=== PATIENT | male | born 1945 | race Caucasian/White ===

== ENCOUNTER 2018-05-04 10:01 | Emergency (ER) | payer MEDICARE, OTHER ==
[2018-05-04 11:09] LABS: SP GRAVITY,URINE MANUAL REFLEX 1.016 (1.002-1.035)
[2018-05-04 11:12] LABS: BASO # 0.1 10^3/uL (0.0-0.2); BASO % 0.6 % (0.0-1.0); EOS # 0.4 10^3/uL (0.0-0.50); EOS % 2.7 % (0.0-3.0); HEMATOCRIT 38.3 % (42.0-52.0); IMMATURE GRANULOCYTE % 0.3 % (0-3.0); LYMPH # 4.1 10^3/uL (1.5-4.5); LYMPH % 30.9 % (24.0-44.0); MEAN CORPUSCULAR HEMOGLOBIN 29.9 pg (27.0-33.0); MEAN CORPUSCULAR HGB CONC 33.9 g/dl (32.0-36.5); MONO # 0.8 10^3/uL (0.0-0.8); MONO % 6.3 % (0.0-5.0); NEUTROPHILS # 7.8 10^3/uL (1.8-7.7); NEUTROPHILS % 59.2 % (36.0-66.0); PLATELET COUNT, AUTOMATED 287 10^3/uL (150-450); RED BLOOD COUNT 4.35 10^6/uL (4.30-6.10); RED CELL DISTRIBUTION WIDTH 12.8 % (11.5-14.5); WHITE BLOOD COUNT 13.2 10^3/uL (4.0-10.0)
[2018-05-04 11:25] LABS: BILIRUBIN, URINE MANUAL OBSCURED (NEGATIVE); GLUCOSE, URINE (UA) MANUAL NEGATIVE (NEGATIVE); KETONE, URINE MANUAL OBSCURED mg/dL (NEGATIVE); PROTEIN, URINE MANUAL REFLEX OBSCURED mg/dL (NEGATIVE); UROBILINOGEN, URINE MANUAL OBSCURED mg/dl (NORMAL)
[2018-05-04 11:26] LABS: BLOOD URINE MANUAL RFX POSITIVE (NEGATIVE); MICROSCOPIC INDICATED? RFX YES (NO); NITRITE, URINE MANUAL RFX OBSCURED (NEGATIVE)
[2018-05-04 11:31] LABS: ANION GAP 8 MEQ/L (8-16); BLOOD UREA NITROGEN 14 MG/DL (7-18); CALCIUM LEVEL 8.5 MG/DL (8.8-10.2); CARBON DIOXIDE LEVEL 24 MEQ/L (21-32); CHLORIDE LEVEL 111 MEQ/L (98-107); GLOMERULAR FILTRATION RATE > 60.0 (>42); GLUCOSE, FASTING 126 MG/DL (70-100); POTASSIUM SERUM 3.8 MEQ/L (3.5-5.1); SODIUM LEVEL 143 MEQ/L (136-145)
[2018-05-04 11:36] LABS: BACTERIA, URINE SMALL AMOUNT; HYALINE CAST, URINE NONE SEEN /lpf (0-1); RBC, URINE TNTC /hpf (0-3); SQUAMOUS EPITHELIAL CELL URINE NONE SEEN /hpf (SMALL AMT)
[2018-05-04 11:37] LABS: MICROSCOPIC EXAM PERFORMED; RENAL EPITHELIAL CELLS, URINE SMALL AMOUNT /hpf
[2018-05-04] MEDS: CEPHALEXIN 500 MG CAP PO (13:25)
== END 2018-05-04 13:25 | disposition home or self-care (01) ==
LOC: M ED 10:01
DX: N30.91 Cystitis, unspecified with hematuria (principal); I10 Essential (primary) hypertension; E78.9 Disorder of lipoprotein metabolism, unspecified; Z79.899 Other long term (current) drug therapy; F17.210 Nicotine dependence, cigarettes, uncomplicated
CPT/HCPCS: 80048

== ENCOUNTER 2018-05-06 17:17 | Day surgery (SDC) | payer MEDICARE ==
[2018-05-06 19:29] LABS: BASO # 0.1 10^3/uL (0.0-0.2); BASO % 0.6 % (0.0-1.0); EOS # 0.6 10^3/uL (0.0-0.50); EOS % 4.8 % (0.0-3.0); HEMATOCRIT 35.7 % (42.0-52.0); IMMATURE GRANULOCYTE % 0.3 % (0-3.0); LYMPH % 33.6 % (24.0-44.0); MEAN CORPUSCULAR HEMOGLOBIN 29.9 pg (27.0-33.0); MEAN CORPUSCULAR HGB CONC 33.6 g/dl (32.0-36.5); MONO # 0.8 10^3/uL (0.0-0.8); MONO % 6.8 % (0.0-5.0); NEUTROPHILS # 6.3 10^3/uL (1.8-7.7); NEUTROPHILS % 53.9 % (36.0-66.0); PLATELET COUNT, AUTOMATED 270 10^3/uL (150-450); RED BLOOD COUNT 4.01 10^6/uL (4.30-6.10); RED CELL DISTRIBUTION WIDTH 13.2 % (11.5-14.5); WHITE BLOOD COUNT 11.8 10^3/uL (4.0-10.0)
[2018-05-06 19:40] LABS: INR 0.98; PROTHROMBIN TIME 13.1 SECONDS (12.1-14.4)
[2018-05-06 19:41] LABS: PARTIAL THROMBOPLASTIN TIME 25.9 SECONDS (25.4-37.6)
[2018-05-06] MEDS: LevoFLOXacin(LEVAQUIN)500 MG/100 ML BAG (J1956) As Ordered ×2 (22:07)
[2018-05-06] MEDS ORDERED: MIDAZOLAM INJ 2 MG/2 ML VIAL (J2250) As Ordered ×2 (22:13)
[2018-05-06] MEDS ORDERED: fentaNYL 100 MCG/2 ML INJECTION (J3010) As Ordered ×4 (22:13→22:33)
[2018-05-06] MEDS ORDERED: PROPOFOL 200 MG/20 ML VIAL As Ordered ×4 (22:13→22:29)
[2018-05-06] MEDS ORDERED: LIDOCAINE 2% INJ 100 MG/5 ML SDV (FOR ANES.) As Ordered ×2 (22:13)
[2018-05-06] MEDS ORDERED: ONDANSETRON 4MG/2ML VIAL (J2405) As Ordered ×2 (22:14)
[2018-05-06] MEDS ORDERED: METOCLOPRAMIDE INJ 10MG/2ML VIAL (J2765) As Ordered ×2 (22:14)
[2018-05-06] MEDS ORDERED: dexameTHASONE 4 MG/ML 1ML VIAL (J1100) As Ordered ×4 (22:14)
[2018-05-06] MEDS ORDERED: ONDANSETRON 4MG/2ML VIAL (J2405) IV ×4 (23:30)
[2018-05-06] MEDS ORDERED: PERCOCET 5MG/325MG TAB PO ×2 (23:30)
[2018-05-06] MEDS ORDERED: fentaNYL 100 MCG/2 ML INJECTION (J3010) IV ×2 (23:30)
[2018-05-06] MEDS: LR 1,000 ML IV ×2 (23:30)
[2018-05-06] MEDS ORDERED: oxyCODONE 5MG TAB PO ×2 (23:30)
[2018-05-07] MEDS: MORPHINE 4 MG/ML 1ML VIAL/SYRINGE (J2270) IV ×4 (01:43→05:06)
[2018-05-07] MEDS: KCL 20MEQ IN D5/0.45NS 1000ML 1,000 ML IV ×2 (01:43→09:47)
[2018-05-07] MEDS: ACETAMINOPHEN 650MG ER TAB (TYLENOL ARTHRITIS) PO ×4 (05:05→14:05)
[2018-05-07] MEDS: LevoFLOXacin 500 MG TABLET PO ×2 (05:05)
[2018-05-07 07:01] LABS: ANION GAP 7 MEQ/L (8-16); BLOOD UREA NITROGEN 13 MG/DL (7-18); CALCIUM LEVEL 8.3 MG/DL (8.8-10.2); CARBON DIOXIDE LEVEL 26 MEQ/L (21-32); CHLORIDE LEVEL 110 MEQ/L (98-107); CREATININE FOR GFR 1.09 MG/DL (0.70-1.30); GLOMERULAR FILTRATION RATE > 60.0 (>42); GLUCOSE, FASTING 170 MG/DL (70-100); POTASSIUM SERUM 4.4 MEQ/L (3.5-5.1); SODIUM LEVEL 143 MEQ/L (136-145)
[2018-05-07 07:02] LABS: HEMATOCRIT 33.8 % (42.0-52.0); HEMOGLOBIN 11.3 g/dl (13.5-17.5); MEAN CORPUSCULAR HEMOGLOBIN 29.7 pg (27.0-33.0); MEAN CORPUSCULAR HGB CONC 33.4 g/dl (32.0-36.5); MEAN CORPUSCULAR VOLUME 88.7 fl (80.0-96.0); PLATELET COUNT, AUTOMATED 256 10^3/uL (150-450); RED BLOOD COUNT 3.81 10^6/uL (4.30-6.10); RED CELL DISTRIBUTION WIDTH 13.1 % (11.5-14.5); WHITE BLOOD COUNT 9.6 10^3/uL (4.0-10.0)
[2018-05-07] MEDS: PANTOPRAZOLE 40MG INJ (PROTONIX) (C9113) IV ×2 (09:47)
[2018-05-07] MEDS: SIMVASTATIN 20 MG TAB PO ×2 (09:50)
[2018-05-07] MEDS: ATENOLOL 50 MG TAB PO ×2 (09:50)
[2018-05-07] MEDS: LISINOPRIL 20 MG TAB PO ×2 (09:51)
== END 2018-05-07 17:40 | disposition home or self-care (01) ==
LOC: M MS5PR 05-07 → M ED 17:17 → M SDC 05-07 17:40
DX: C67.2 Malignant neoplasm of lateral wall of bladder (principal); R31.0 Gross hematuria; R33.9 Retention of urine, unspecified; I10 Essential (primary) hypertension; Z79.899 Other long term (current) drug therapy; E78.4 Other hyperlipidemia; I25.2 Old myocardial infarction; F17.210 Nicotine dependence, cigarettes, uncomplicated
CPT/HCPCS: 52235

== ENCOUNTER → 2018-05-06 | Outpatient (CLI) | payer MEDICARE ==
[~2018-05-06] MED LIST: ISOVUE-370 76% 100ML VIAL (Q9967) As Ordered
== END ==
LOC: M RAD 08:44
DX: R31.0 Gross hematuria (principal)
CPT/HCPCS: Q9967

== ENCOUNTER → 2018-06-04 | Outpatient (REF) | payer MEDICARE ==
[2018-06-04 13:12] LABS: APPEARANCE, URINE CLEAR (CLEAR); BACTERIA, URINE AUTO NEGATIVE (NEGATIVE); BILIRUBIN, URINE AUTO NEGATIVE (NEGATIVE); BLOOD, URINE BLOOD NEGATIVE (NEGATIVE); COLOR, URINE YELLOW (YELLOW); GLUCOSE, URINE (UA) AUTO NEGATIVE (NEGATIVE); KETONE, URINE AUTO NEGATIVE (NEGATIVE); LEUKOCYTE ESTERASE, URINE AUTO TRACE (NEGATIVE); MUCUS, URINE SMALL (NEGATIVE); NITRITE, URINE AUTO NEGATIVE (NEGATIVE); PROTEIN, URINE AUTO NEGATIVE (NEGATIVE); RBC, URINE AUTO 5 /HPF (0-3); SPECIFIC GRAVITY URINE AUTO 1.021 (1.002-1.035); SQUAMOUS EPITHELIAL CELL UR AU 0 /HPF (0-6); WBC, URINE AUTO 15 /HPF (0-3)
== END ==
LOC: M SMT 12:59
DX: Z79.899 Other long term (current) drug therapy (principal); Z85.51 Personal history of malignant neoplasm of bladder
CPT/HCPCS: 81001

== ENCOUNTER → 2019-06-15 | Outpatient (REF) | payer MEDICARE ==
[~2019-06-15] MED LIST changes: +ASPI1TAB15 PO; +ATEN50TA2 PO; -ISOVUE-370 76% 100ML VIAL (Q9967) As Ordered; +KEFL500C17 PO; +LISI-538 PO; +SIMV20TA2 PO
== END ==
LOC: M SMT 12:33
PROVIDERS: ATTEND Urology
DX: C67.9 Malignant neoplasm of bladder, unspecified (principal)

== ENCOUNTER → 2019-07-17 | Outpatient (REF) | payer MEDICARE ==
[2019-07-17 13:28] LABS: BLOOD UREA NITROGEN 13 MG/DL (7-18); CALCIUM LEVEL 9.1 MG/DL (8.8-10.2); CARBON DIOXIDE LEVEL 28 MEQ/L (21-32); CHLORIDE LEVEL 107 MEQ/L (98-107); GLOMERULAR FILTRATION RATE > 60.0 (>42); GLUCOSE, FASTING 110 MG/DL (70-100); POTASSIUM SERUM 4.8 MEQ/L (3.5-5.1); SODIUM LEVEL 141 MEQ/L (136-145)
[2019-07-17 13:40] LABS: CHOLESTEROL RISK RATIO 3.5 (<5); THYROID STIMULATING HORMONE 1.81 uIU/ML (0.358-3.740)
[2019-07-17 13:50] LABS: HEMOGLOBIN A1c 5.8 %
[2019-07-17 14:42] LABS: MALB URINE SIEMENS 26.4 MG/L
== END ==
LOC: M SFHCPLAZ 09:42
PROVIDERS: ATTEND Family Medicine
DX: R73.03 Prediabetes (principal); E78.2 Mixed hyperlipidemia; I10 Essential (primary) hypertension
CPT/HCPCS: 36415; 80048; 80061; 82043; 83036; 84443; G0463

== ENCOUNTER → 2019-08-11 | Outpatient (REF) | payer MEDICARE ==
[~2019-08-11] MED LIST changes: +ASPI81TA85 PO
[2019-08-11 13:43] LABS: BASO # 0.1 10^3/uL (0.0-0.2); EOS # 0.6 10^3/uL (0.0-0.5); EOS % 5.4 % (0.0-3.0); HEMATOCRIT 37.8 % (42.0-52.0); LYMPH % 29.5 % (24.0-44.0); MEAN CORPUSCULAR HEMOGLOBIN 30.7 pg (27.0-33.0); MEAN CORPUSCULAR HGB CONC 34.4 g/dl (32.0-36.5); MEAN CORPUSCULAR VOLUME 89.2 fl (80.0-96.0); MONO # 0.7 10^3/uL (0.0-0.8); MONO % 6.4 % (0.0-5.0); NEUTROPHILS # 5.8 10^3/uL (1.5-8.5); NEUTROPHILS % 57.6 % (36.0-66.0); PLATELET COUNT, AUTOMATED 295 10^3/uL (150-450); RED BLOOD COUNT 4.24 10^6/uL (4.30-6.10); WHITE BLOOD COUNT 10.1 10^3/uL (4.0-10.0)
[2019-08-11 13:58] LABS: INR 1.02; PROTHROMBIN TIME 13.1 SECONDS (11.8-14.0)
[2019-08-11 13:59] LABS: PARTIAL THROMBOPLASTIN TIME 27.9 SECONDS (25.0-38.4)
[2019-08-11 14:07] LABS: BLOOD UREA NITROGEN 14 MG/DL (7-18); CARBON DIOXIDE LEVEL 29 MEQ/L (21-32); CHLORIDE LEVEL 106 MEQ/L (98-107); CREATININE FOR GFR 0.94 MG/DL (0.70-1.30); GLOMERULAR FILTRATION RATE > 60.0 (>42); GLUCOSE, FASTING 102 MG/DL (70-100); POTASSIUM SERUM 4.2 MEQ/L (3.5-5.1); SODIUM LEVEL 140 MEQ/L (136-145)
[2019-08-18 00:06] LABS: A1A FOR PHENOTYPE 150 mg/dL (90-200)
== END ==
LOC: M LAB REF 13:34
PROVIDERS: ATTEND Internal Medicine Pulmonary Disease
DX: J44.9 Chronic obstructive pulmonary disease, unspecified (principal); Z79.01 Long term (current) use of anticoagulants

== ENCOUNTER → 2019-08-13 | Outpatient (CLI) | payer MEDICARE ==
--- NOTE | 2019-08-14 18:42 | REP ---
CT CHEST WITHOUT IV CONTRAST: COMPARISON: CT chest from [facility] 07/19/2019. Once again in the right upper lobe, there is a spiculated mass. This is unchanged. It measures 2.0 x 1.8 cm. There are surrounding spiculations extending into the lung parenchyma. No other suspicious mass is seen bilaterally. There is a calcified granuloma in the left lower lobe just above the diaphragm. There are mild scattered fibrotic changes. There is no evidence of significant mediastinal, hilar or chest wall lymphadenopathy. There are atherosclerotic calcifications of the thoracic aorta without aneurysm. The heart is not enlarged. There is no pleural or pericardial effusion. There are degenerative changes of the spine. Calcified granulomas are seen in the spleen. Calcified left hilar lymph nodes are present. There are stable low density nodular thickening of the left adrenal gland, probably representing a small underlying adenoma. IMPRESSION: No change spiculated mass right upper lobe. No other suspicious lung mass. No suspicious adenopathy or adrenal mass. Electronically Signed by Massimo Robertson MD 08/15/2019 11:21 A
== END ==
LOC: M RAD 07:06
PROVIDERS: ATTEND Internal Medicine Pulmonary Disease
DX: R91.1 Solitary pulmonary nodule (principal)

== ENCOUNTER 2019-08-20 06:40 | Day surgery (SDC) | payer MEDICARE ==
[~2019-08-20] VITALS: Ht 180.3 cm; Wt 86.4 kg
[~2019-08-20 06:40] MED LIST changes: +LR 1,000 ML IV ONE
[2019-08-20] MEDS ORDERED: CETACAINE SPRAY 5GM As Ordered ONE (07:50)
[2019-08-20] MEDS ORDERED: EPINEPHrine 1MG/10ML SYRINGE 1.5IN As Ordered ONE (07:51)
[2019-08-20] MEDS ORDERED: LIDOCAINE VISCOUS 2% SOLN 15ML UDC As Ordered ONE (07:51)
[2019-08-20] MEDS ORDERED: LIDOCAINE 1% SDV INJ 30 ML VIAL As Ordered ONE (07:51)
[2019-08-20] MEDS ORDERED: THROMBIN SOLN 5,000 UNITS VIAL As Ordered ONE (07:52)
[2019-08-20] MEDS ORDERED: ROCURONIUM BROMIDE 50 MG/5 ML VIAL As Ordered ONE (08:07)
[2019-08-20] MEDS ORDERED: PROPOFOL 200 MG/20 ML VIAL As Ordered ONE (08:07)
[2019-08-20] MEDS ORDERED: fentaNYL 100 MCG/2 ML INJECTION (J3010) As Ordered ONE (08:07)
[2019-08-20] MEDS ORDERED: LIDOCAINE 2% INJ 100 MG/5 ML SDV (FOR ANES.) As Ordered ONE (08:07)
[2019-08-20] MEDS ORDERED: MIDAZOLAM INJ 2 MG/2 ML VIAL (J2250) As Ordered ONE (08:08)
[2019-08-20] MEDS ORDERED: dexameTHASONE 4 MG/ML 1ML VIAL (J1100) As Ordered ONE (09:00)
[2019-08-20] MEDS ORDERED: ONDANSETRON 4MG/2ML VIAL (J2405) As Ordered ONE (09:00)
[2019-08-20] MEDS ORDERED: KETOROLAC 60 MG/2 ML VIAL (J1885) As Ordered ONE (09:00)
[2019-08-20] MEDS ORDERED: SUGAMMADEX SODIUM 500 MG/5 ML VIAL (BRIDION) As Ordered ONE (09:10)
[2019-08-20] MEDS ORDERED: KETOROLAC 30 MG/ML VIAL (J1885) IV PRN (10:00)
[2019-08-20] MEDS ORDERED: LR 1,000 ML IV SCH (10:00)
[2019-08-20] MEDS ORDERED: fentaNYL 100 MCG/2 ML INJECTION (J3010) IV PRN (10:00)
[2019-08-20] MEDS ORDERED: ONDANSETRON 4MG/2ML VIAL (J2405) IV PRN (10:00)
--- NOTE | 2019-08-20 10:07 | REP ---
Clinical: Status post bronchoscopy . Comparison: 06/28/2014 . Findings: The mediastinum and cardiac silhouette are stable and cardiomegaly is again appreciated. The lung arrieta demonstrate stable chronic changes without acute consolidation, effusion, or pneumothorax. Skeletal structures are intact. Impression: No acute cardiopulmonary process appreciated. Electronically Signed by Matthew Whiteside MD 08/20/2019 09:59 A
--- NOTE | 2019-08-20 11:43 | ROOR ---
Patient Name: Russel Fairbanks Procedure Date: 08/20/2019 8:08 AM Date of : 1945 Admit Type: Outpatient Age: 74 Note Status: Finalized Attending MD: Lucy Germain MD Procedure: Bronchoscopy Indications: Right upper lobe mass Providers: Lucy Germain MD (Doctor) Referring MD: 1. No Referring Physician 1. No Referring Physician, Admin. (Referring MD) Requesting Physician: Medicines: General Anesthesia, Cetacaine topical Complications: No immediate complications. Estimated blood loss: Minimal Procedure: Pre-Anesthesia Assessment: - Prior to the procedure, a History and Physical was performed, and patient medications and allergies were reviewed. The patient's tolerance of previous anesthesia was also reviewed. The risks and benefits of the procedure and the sedation options and risks were discussed with the patient. All questions were answered, and informed consent was obtained. Prior Anticoagulants: The patient has taken aspirin, last dose was day of procedure. ASA Grade Assessment: III - A patient with severe systemic disease. After reviewing the risks and benefits, the patient was deemed in satisfactory condition to undergo the procedure. The Bronchoscope was introduced through the mouth, via the endotracheal tube (the patient was intubated for the procedure) and advanced to the tracheobronchial tree of both lungs. The procedure was accomplished without difficulty. The patient tolerated the procedure well. Findings: The endotracheal tube is in good position. The trachea is of normal caliber. The philip is sharp. The tracheobronchial tree was examined to at least the first subsegmental level. Bronchial mucosa was normal with some webbing; there are no endobronchial lesions, and no secretions. There was anatomic variant in right upper lobe segmental bronchi. Electromagnetic navigation bronchoscopy utilizing the [employer] system with iLogic upgrade was performed. The CT scan was used for planning purposes. A virtual bronchoscopic image was generated using the planning software and the philip, left main bronchus philip, left lower lobe basilar segment, right upper lobe, right middle lobe and right lower lobe basilar segment registration points were marked on the virtual image. The target in the apical segment of the right upper lobe was marked. A nodule approx 2 cm in size was found and a pathway was created. After a complete airway exam, the locatable guide/extended working channel was inserted and an automatic registration was performed by advancing the scope through the philip, left main bronchus philip, left lower lobe basilar segment, right upper lobe, right middle lobe and right lower lobe basilar segment. The navigation phase was then begun to locate the target lesion(s). Positioning off-center (in relation to the lesion) was confirmed using the Olympus radial probe US catheter. The locatable guide was removed from the extended working channel. Fluoroscopy guided transbronchial brushings of a nodule were obtained in the apical segment of the right upper lobe with a needle brush and sent for routine cytology. Transbronchial brushing technique was selected because the sampling site was not accessible using standard endoscopic (bronchoscopic) techniques. Transbronchial needle aspirations of a nodule were performed in the apical segment of the right upper lobe using a Castellanos needle and GenCut needle and sent for routine cytology. The procedure was guided by fluoroscopy. Transbronchial needle aspiration technique was selected because the sampling site was not accessible using standard endoscopic (bronchoscopic) techniques. Transbronchial biopsies of a nodule were performed in the apical segment of the right upper lobe using forceps and sent for histopathology examination. The procedure was guided by fluoroscopy. Transbronchial biopsy technique was selected because the sampling site was not visible endoscopically. The sampling device penetrated the full thickness of the bronchial wall to obtain the biopsy of lung tissue. An endobronchial ultrasound endoscope was utilized in order to assist with fine needle aspiration in the subcarinal area and in the right hilum. Bronchoalveolar lavage was performed in the RUL apical segment (B1) of the lung and sent for routine cytology. The return was cloudy. Impression: - Right upper lobe mass - The airway examination was normal. - Electromagnetic navigation bronchoscopy was performed. - Transbronchial brushings were obtained. - A transbronchial needle aspiration was performed. - Transbronchial lung biopsies were performed. - Endobronchial ultrasound was performed. - Bronchoalveolar lavage was performed. Recommendation: - Follow up with bronchoscopist as previously scheduled. Attending Participation: I personally performed the entire procedure. Lucy Germain MD 08/20/2019 11:43:21 AM Number of Addenda: 0 Note Initiated On: 08/20/2019 8:08 AM
[2019-08-20 11:45] VITALS: BP 154/70
== END 2019-08-20 11:53 | disposition home or self-care (01) ==
LOC: M SDC 06:40
PROVIDERS: ATTEND Internal Medicine Pulmonary Disease
DX: C34.11 Malignant neoplasm of upper lobe, right bronchus or lung (principal); I10 Essential (primary) hypertension; I25.10 Atherosclerotic heart disease of native coronary artery without angina pectoris; E78.49 Other hyperlipidemia; R73.03 Prediabetes; Z85.51 Personal history of malignant neoplasm of bladder; Z86.73 Personal history of transient ischemic attack (TIA), and cerebral infarction without residual deficits; F17.218 Nicotine dependence, cigarettes, with other nicotine-induced disorders; Z79.82 Long term (current) use of aspirin; Z79.899 Other long term (current) drug therapy
CPT/HCPCS: 31623; 31624; 31627; 31629; 31652; 71045; 76000; 88104; 88108; 88173; 88305; 88313; 88341; 88342; J1100; J1885; J2250; J2405; J3010

== ENCOUNTER → 2019-09-15 | Outpatient (CLI) | payer MEDICARE ==
[~2019-09-15] MED LIST changes: -LR 1,000 ML IV ONE; -SIMV20TA2 PO; +SIMV20TA22 PO
--- NOTE | 2019-09-15 16:06 | REP ---
PET/CT: History: Staging malignant neoplasm upper lobe right lung. Adenocarcinoma. Comparisons: Comparison chest CT study July 21 and August 13, 2019. TECHNIQUE: 70 minutes following the intravenous injection of a 9.83 mCi dose of F-18 FDG, three-dimensional PET scintigraphy is acquired from the skull base to the proximal thighs. Triplanar noncontrast CT scanning is acquired through the same anatomic range for attenuation correction, and image registration with scan parameters optimized to minimize radiation exposure to the patient. PET scintigraphy and CT datasets were fused and displayed on a workstation with multiplanar and projection display capability. PET/CT Findings: Head and neck soft tissues are unremarkable. The known spiculated 2 cm right upper lobe lesion is hypermetabolic, maximum standard uptake value is 4.68. No other abnormal hypermetabolic uptake is seen within the chest. No hilar or mediastinal hypermetabolic uptake is seen. No abnormal abdominal or pelvic hypermetabolic uptake is seen. No abnormal adrenal uptake is seen. Impression: The right upper lobe malignant neoplasm is hypermetabolic. No other abnormal hypermetabolic uptake is seen. Electronically Signed by Shaquille Luevano MD 09/15/2019 04:10 P
== END ==
LOC: M PLARAD 11:29
PROVIDERS: ATTEND Internal Medicine Pulmonary Disease
DX: C34.11 Malignant neoplasm of upper lobe, right bronchus or lung (principal)
CPT/HCPCS: 78815; A9552

== ENCOUNTER → 2019-11-04 | Outpatient (CLI) | payer MEDICARE ==
[~2019-11-04] MED LIST changes: +ASPI-255 PO; +ATOR80TA59 PO; +STIO1AER PO
[2019-11-04 10:12] LABS: BASO # 0.1 10^3/uL (0.0-0.2); EOS # 0.9 10^3/uL (0.0-0.5); HEMATOCRIT 37.7 % (42.0-52.0); HEMOGLOBIN 12.6 g/dl (13.5-17.5); LYMPH # 3.7 10^3/uL (1.5-5.0); LYMPH % 33.4 % (24.0-44.0); MEAN CORPUSCULAR HEMOGLOBIN 30.4 pg (27.0-33.0); MEAN CORPUSCULAR HGB CONC 33.4 g/dl (32.0-36.5); MEAN CORPUSCULAR VOLUME 90.8 fl (80.0-96.0); MONO # 0.8 10^3/uL (0.0-0.8); MONO % 7.4 % (0.0-5.0); NEUTROPHILS # 5.5 10^3/uL (1.5-8.5); NEUTROPHILS % 49.9 % (36.0-66.0); PLATELET COUNT, AUTOMATED 302 10^3/uL (150-450); RED BLOOD COUNT 4.15 10^6/uL (4.30-6.10); WHITE BLOOD COUNT 11.1 10^3/uL (4.0-10.0)
[2019-11-04 10:22] LABS: INR 0.99; PROTHROMBIN TIME 12.8 SECONDS (11.8-14.0)
[2019-11-04 10:23] LABS: PARTIAL THROMBOPLASTIN TIME 25.6 SECONDS (25.0-38.4)
[2019-11-04 10:38] LABS: ALT/SGPT 33 U/L (12-78); BLOOD UREA NITROGEN 25 MG/DL (7-18); CALCIUM LEVEL 9.2 MG/DL (8.8-10.2); CARBON DIOXIDE LEVEL 26 MEQ/L (21-32); CHLORIDE LEVEL 105 MEQ/L (98-107); CREATININE FOR GFR 1.08 MG/DL (0.70-1.30); GLOMERULAR FILTRATION RATE > 60.0 (>42); GLUCOSE, FASTING 116 MG/DL (70-100); POTASSIUM SERUM 4.6 MEQ/L (3.5-5.1); SODIUM LEVEL 139 MEQ/L (136-145); TOTAL PROTEIN 7.6 GM/DL (6.4-8.2)
== END ==
LOC: M PLALAB 09:08
PROVIDERS: ATTEND Family Medicine
DX: I25.10 Atherosclerotic heart disease of native coronary artery without angina pectoris (principal)

== ENCOUNTER 2019-11-06 08:56 | Day surgery (SDC) | payer MEDICARE ==
[~2019-11-06] VITALS: Ht 180.3 cm; Wt 92.9 kg
[~2019-11-06 08:56] MED LIST changes: +NS 1,000 ML IV ONE
[2019-11-06] MEDS ORDERED: atenoloL 25 MG TAB As Ordered ONE (10:14)
[2019-11-06] MEDS ORDERED: atenoloL 25 MG TAB PO ONE (10:30)
[2019-11-06] MEDS ORDERED: propofoL 200 MG/20 ML VIAL As Ordered ONE ×2 (10:38→10:59)
[2019-11-06] MEDS ORDERED: LIDOCAINE 2% INJ 100 MG/5 ML SDV (FOR ANES.) As Ordered ONE (10:39)
--- NOTE | 2019-11-06 10:51 | ROOR ---
Patient Name: Russel Fairbanks Procedure Date: 11/06/2019 10:36 AM Date of : 1945 Age: 74 Room: [facility] Gender: Male Note Status: Finalized Procedure: Upper GI endoscopy Indications: Iron deficiency anemia Providers: Benjamin HURLEY MD Referring MD: Dayanna Ralph MD Requesting Provider: Medicines: Monitored Anesthesia Care Complications: No immediate complications. Procedure: Pre-Anesthesia Assessment: - The heart rate, respiratory rate, oxygen saturations, blood pressure, adequacy of pulmonary ventilation, and response to care were monitored throughout the procedure. The Endoscope was introduced through the mouth, and advanced to the second part of duodenum. The upper GI endoscopy was accomplished without difficulty. The patient tolerated the procedure well. Findings: The esophagus was normal. The stomach was normal. The examined duodenum was normal. Impression: - Normal esophagus. - Normal stomach. - Normal examined duodenum. - No specimens collected. Recommendation: - Continue present medications. - Observe patient's clinical course. Benjamin Hurley MD Benjamin HURLEY MD 11/06/2019 10:51:16 AM Electronically signed by Benjamin HURLEY MD Number of Addenda: 0 Note Initiated On: 11/06/2019 10:36 AM Estimated Blood Loss: Estimated blood loss: none.
--- NOTE | 2019-11-06 11:02 | ROOR ---
Patient Name: Russel Fairbanks Procedure Date: 11/06/2019 10:37 AM Date of : 1945 Age: 74 Room: [facility] Gender: Male Note Status: Finalized Procedure: Colonoscopy Indications: Positive fecal immunochemical test Providers: Benjamin HURLEY MD Referring MD: Dayanna Ralph MD Requesting Provider: Medicines: Monitored Anesthesia Care Complications: No immediate complications. Procedure: Pre-Anesthesia Assessment: - The heart rate, respiratory rate, oxygen saturations, blood pressure, adequacy of pulmonary ventilation, and response to care were monitored throughout the procedure. The Colonoscope was introduced through the anus and advanced to the cecum, identified by appendiceal orifice and ileocecal valve. The colonoscopy was somewhat difficult due to inadequate bowel prep. The patient tolerated the procedure well. The quality of the bowel preparation was poor. Findings: The perianal and digital rectal examinations were normal. (Colon Prep was POOR, Inadequate Visualisation) The colon is grossly normal without large tumors or obstructing lesions. Unable to perform adequate detail examination. Small lesions may have been missed. Impression: - (Colon Prep was POOR, Inadequate Visualisation) - The colon is grossly normal without large tumors or obstructing lesions. Unable to perform adequate detail examination. Small lesions may have been missed. - No specimens collected. Recommendation: - Repeat colonoscopy at the next available appointment because the bowel preparation was poor. - My office will call you within the next few days to reschedule a colonoscopy with alternate colon preparation. Benjamin Hurley MD Benjamin HURLEY MD 11/06/2019 11:02:06 AM Electronically signed by Benjamin HURLEY MD Number of Addenda: 0 Note Initiated On: 11/06/2019 10:37 AM Estimated Blood Loss: Estimated blood loss: none.
[2019-11-06 11:30] VITALS: BP 154/76
== END 2019-11-06 11:34 | disposition home or self-care (01) ==
LOC: M OPP 08:56
PROVIDERS: ATTEND Internal Medicine Gastroenterology
DX: R19.5 Other fecal abnormalities (principal); D50.9 Iron deficiency anemia, unspecified; Z79.82 Long term (current) use of aspirin; Z79.899 Other long term (current) drug therapy; Z87.891 Personal history of nicotine dependence

== ENCOUNTER → 2019-12-21 | Outpatient (CLI) | payer MEDICARE ==
[~2019-12-21] MED LIST changes: -NS 1,000 ML IV ONE
--- NOTE | 2019-12-21 12:04 | REPVR ---
PROCEDURE INFORMATION: Exam: CT Chest Without Contrast Exam date and time: 12/21/2019 10:37 AM Age: 74 years old Clinical indication: Condition or disease; Lung condition and disease; Cancer of the lung; Right; Lobe, upper; Additional info: Malignant neoplasm of right upper lobe of lung TECHNIQUE: Imaging protocol: Computed tomography of the chest without contrast. Coronal and sagittal reformats were created and reviewed. 3D rendering: MIP and/or 3D reconstructed images were created by the technologist. Radiation optimization: All CT scans at this facility use at least one of these dose optimization techniques: automated exposure control; mA and/or kV adjustment per patient size (includes targeted exams where dose is matched to clinical indication); or iterative reconstruction. COMPARISON: CT Chest without contrast 08/13/2019 7:20 AM FINDINGS: Thyroid: Unremarkable as visualized. Lungs: The trachea is unremarkable. Diffuse bilateral bronchial wall thickening. Mild bilateral upper lung predominant paraseptal and centrilobular emphysema. Unchanged mild linear scarring of the left upper lobe and lingula. Unchanged left lower lobe calcified pulmonary nodule consistent with a benign remote granuloma. Right upper lobe spiculated solid noncalcified 19 x 18 mm nodule (coronal series 203, image 64) is slightly enlarged compared to 08/13/2019 when it measured 17 x 15 mm when measured in the same fashion. No new suspicious pulmonary nodule. Pleural space: No pleural effusion, mass or calcification. No pneumothorax. Heart: Aortic valve calcifications are present consistent with aortic valve sclerosis. Heavy coronary arterial atherosclerotic calcification. Mitral annular calcifications are present. Heart size is within normal limits. No pericardial effusion. Mediastinum: No mediastinal mass. Pulmonary arteries: The main pulmonary arterial trunk is not enlarged. Aorta: Severe aortic atherosclerosis. No thoracic aortic aneurysm. Lymph nodes: Stable calcified subcarinal and left hilar lymph nodes, consistent with remote granulomatous disease. Spleen: Splenic calcifications present consistent with remote granulomatous disease. Adrenals: Stable 1.2 cm hypoattenuating (-13 Hounsfield units) left adrenal nodule consistent with an adrenal adenoma. Bones/joints: Unchanged small intrathecal or dural calcifications present at the lower thoracic spine. No aggressive-appearing osseous lesion. Soft tissues: Unremarkable. IMPRESSION: 1. Slight interval enlargement of the right upper lobe 19 mm spiculated nodule compared to 08/13/2019, consistent with the given clinical history of pulmonary malignancy. 2. Findings consistent with bronchitis. Pulmonary emphysema. 3. Atherosclerosis. Coronary artery disease. Electronically signed by: Dominik Martinez On 12/21/2019 12:04:13 PM
== END ==
LOC: M RAD 10:22
PROVIDERS: ATTEND Thoracic Surgery (Cardiothoracic Vascular Surgery)
DX: C34.90 Malignant neoplasm of unspecified part of unspecified bronchus or lung (principal)

== ENCOUNTER → 2019-12-23 | Outpatient (CLI) | payer MEDICARE ==
[2019-12-23 13:32] LABS: HEMATOCRIT 35.9 % (42.0-52.0); HEMOGLOBIN 12.1 g/dl (13.5-17.5); MEAN CORPUSCULAR HEMOGLOBIN 29.8 pg (27.0-33.0); MEAN CORPUSCULAR HGB CONC 33.7 g/dl (32.0-36.5); MEAN CORPUSCULAR VOLUME 88.4 fl (80.0-96.0); PLATELET COUNT, AUTOMATED 392 10^3/uL (150-450); RED BLOOD COUNT 4.06 10^6/uL (4.30-6.10); WHITE BLOOD COUNT 12.1 10^3/uL (4.0-10.0)
[2019-12-23 13:38] LABS: ABG BASE EXCESS -4.1 (-2.0-2.0); ABG HCO3 18.9 MEQ/L (22.0-26.0); ABG O2 SATURATION 96.1 % (95.0-99.0); ABG PARTIAL PRESSURE CO2 28.6 mmHg (35.0-45.0); ABG PARTIAL PRESSURE O2 86.1 mmHg (75.0-100.0); ABG STANDARD HCO3 21.1 MEQ/L (22.0-26.0); ABG TOTAL CO2 19.8 MEQ/L (23.0-31.0); ABG pH (ARTERIAL) 7.438 UNITS (7.350-7.450)
[2019-12-23 13:54] LABS: BLOOD UREA NITROGEN 19 MG/DL (7-18); CALCIUM LEVEL 9.2 MG/DL (8.8-10.2); CARBON DIOXIDE LEVEL 29 MEQ/L (21-32); CHLORIDE LEVEL 104 MEQ/L (98-107); CREATININE FOR GFR 1.14 MG/DL (0.70-1.30); GLOMERULAR FILTRATION RATE > 60.0 (>42); GLUCOSE, FASTING 107 MG/DL (70-100); POTASSIUM SERUM 3.9 MEQ/L (3.5-5.1); SODIUM LEVEL 138 MEQ/L (136-145)
--- NOTE | 2019-12-23 14:35 | REP ---
CHEST, TWO VIEWS: Two views of the chest are performed. Comparison made with multiple prior exams most recently a CT of the chest 12/21/2019. The spiculated mass in the right upper lobe is not well visualized on today's exam. There is linear scarring in the left lung base. There is no acute infiltrate bilaterally. Heart is not enlarged. There is mild calcification of the thoracic aorta. Mediastinum is unremarkable. There are degenerative changes of the spine. IMPRESSION: No acute infiltrate. Electronically Signed by Massimo Robertson MD 12/23/2019 04:14 P
[2019-12-23 14:38] LABS: APPEARANCE, URINE CLEAR (CLEAR); BACTERIA, URINE AUTO NEGATIVE (NEGATIVE); BILIRUBIN, URINE AUTO NEGATIVE (NEGATIVE); BLOOD, URINE BLOOD NEGATIVE (NEGATIVE); COLOR, URINE STRAW (YELLOW); GLUCOSE, URINE (UA) AUTO NEGATIVE (NEGATIVE); KETONE, URINE AUTO NEGATIVE (NEGATIVE); LEUKOCYTE ESTERASE, URINE AUTO TRACE (NEGATIVE); NITRITE, URINE AUTO NEGATIVE (NEGATIVE); PROTEIN, URINE AUTO NEGATIVE (NEGATIVE); RBC, URINE AUTO 1 /HPF (0-3); SPECIFIC GRAVITY URINE AUTO 1.006 (1.002-1.035); SQUAMOUS EPITHELIAL CELL UR AU 0 /HPF (0-6); UROBILINOGEN, URINE AUTO 0.2 mg/dL (0.0-2.0); WBC, URINE AUTO 4 /HPF (0-3)
[2019-12-23 15:08] LABS: INR 1.04; PROTHROMBIN TIME 13.3 SECONDS (11.8-14.0)
--- NOTE | 2019-12-25 14:36 | ECGEPIP ---
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
== END ==
LOC: M ADMPAT 12:46
PROVIDERS: ATTEND Thoracic Surgery (Cardiothoracic Vascular Surgery)
DX: Z01.818 Encounter for other preprocedural examination (principal); Z79.01 Long term (current) use of anticoagulants

== ENCOUNTER 2019-12-30 06:36 | Inpatient (IN) | payer MEDICARE ==
[~2019-12-30] VITALS: Ht 180.3 cm; Wt 92.6 kg
[~2019-12-30 06:36] MED LIST changes: +LR 1,000 ML IV ONE; +MUPIROCIN 2% OINT 22 GM TUBE TOP ONE; +ceFAZolin SOD 2 GM in IV 1 EA IV ONE
[2019-12-30] MEDS ORDERED: STERILE TALC POWDER 3GM VIAL As Ordered ONE (07:22)
[2019-12-30] MEDS ORDERED: CETACAINE SPRAY 5GM As Ordered ONE (07:23)
[2019-12-30] MEDS ORDERED: BUPIVACAINE HCL 0.25% 10 ML VIAL As Ordered ONE (07:23)
[2019-12-30] MEDS ORDERED: BUPIVACAINE LIPOSOME/PF 1.3% 20ML VIAL (13.3MG/ML)(EXPAREL)(C9290 PER1MG) As Ordered ONE ×2 (07:23→15:15)
[2019-12-30] MEDS ORDERED: fentaNYL 100 MCG/2 ML INJECTION (J3010) As Ordered ONE ×2 (08:07→14:58)
[2019-12-30] MEDS ORDERED: MIDAZOLAM INJ 2 MG/2 ML VIAL (J2250) As Ordered ONE ×2 (08:07→09:06)
[2019-12-30] MEDS ORDERED: BUPIVACAINE HCL 0.5% 10 ML VIAL As Ordered ONE ×2 (08:39→15:15)
[2019-12-30] MEDS ORDERED: MIDAZOLAM INJ 2 MG/2 ML VIAL (J2250) IV ONE (09:00)
[2019-12-30] MEDS ORDERED: METOCLOPRAMIDE INJ 10MG/2ML VIAL (J2765) IV PRN (09:00)
[2019-12-30] MEDS ORDERED: EPIDURAL/PCA KEYS XX PRN (09:00)
[2019-12-30] MEDS ORDERED: atenoloL 25 MG TAB PO ONE (09:00)
[2019-12-30] MEDS ORDERED: WALLBOXKEY XX PRN (09:00)
[2019-12-30] MEDS ORDERED: ONDANSETRON 4MG/2ML VIAL (J2405) IV PRN ×2 (09:00→16:45)
[2019-12-30] MEDS ORDERED: NALOXONE INJ 0.4 MG/1 ML VIAL (J2310) IV PRN (09:00)
[2019-12-30] MEDS ORDERED: fentaNYL 100 MCG/2 ML INJECTION (J3010) IV ONE (09:00)
[2019-12-30] MEDS ORDERED: dexameTHASONE 4 MG/ML 1ML VIAL (J1100) As Ordered ONE (09:06)
[2019-12-30] MEDS ORDERED: propofoL 200 MG/20 ML VIAL As Ordered ONE (09:06)
[2019-12-30] MEDS ORDERED: fentaNYL 250 MCG/5 ML INJECTION (J3010) As Ordered ONE (09:06)
[2019-12-30] MEDS ORDERED: PHENYLephrine HCL 500 MCG/5 ML (100MCG/ML) SYRINGE (J2370) As Ordered ONE (09:06)
[2019-12-30] MEDS ORDERED: LIDOCAINE 2% INJ 100 MG/5 ML SDV (FOR ANES.) As Ordered ONE (09:06)
[2019-12-30] MEDS ORDERED: ROCURONIUM BROMIDE 50 MG/5 ML VIAL As Ordered ONE ×4 (09:06→13:35)
[2019-12-30] MEDS ORDERED: ePHEDrine SULFATE 25 MG/5 ML(5MG/ML) SYRINGE As Ordered ONE ×2 (09:28→12:54)
[2019-12-30] MEDS ORDERED: PHENYLEPHRINE INJ 10MG/ML VIAL (J2370) As Ordered ONE (09:41)
[2019-12-30] MEDS ORDERED: BUPIVACAINE HCL 0.25% 30 ML VIAL As Ordered ONE (09:47)
[2019-12-30] MEDS ORDERED: SUGAMMADEX SODIUM 500 MG/5 ML VIAL (BRIDION) As Ordered ONE (10:19)
[2019-12-30] MEDS ORDERED: ONDANSETRON 4MG/2ML VIAL (J2405) As Ordered ONE (10:19)
[2019-12-30] MEDS ORDERED: ceFAZolin 2 GM/D5W 50 ML IV BAG (J0690 PER 500MG) As Ordered ONE (13:04)
[2019-12-30] MEDS ORDERED: KCL 20MEQ IN D5/NS 1000ML 1,000 ML IV SCH (15:44)
[2019-12-30] MEDS ORDERED: NORCO, ANEXSIA 5/325MG TABLET (HYDROcodone/ACETAMINOPHEN) PO PRN (15:45)
[2019-12-30] MEDS ORDERED: PERCOCET 5MG/325MG TAB PO PRN (15:45)
[2019-12-30] MEDS ORDERED: KETOROLAC 30 MG/ML VIAL (J1885) As Ordered ONE (16:30)
[2019-12-30] MEDS ORDERED: KETOROLAC 30 MG/ML VIAL (J1885) IV ONE (16:30)
[2019-12-30 16:37] LABS: ABG BASE EXCESS -1.6 (-2.0-2.0); ABG HCO3 22.4 MEQ/L (22.0-26.0); ABG O2 SATURATION 99.1 % (95.0-99.0); ABG PARTIAL PRESSURE CO2 35.1 mmHg (35.0-45.0); ABG STANDARD HCO3 23.2 MEQ/L (22.0-26.0); ABG TOTAL CO2 23.4 MEQ/L (23.0-31.0); ABG pH (ARTERIAL) 7.422 UNITS (7.350-7.450)
[2019-12-30] MEDS: FENTANYL/BUPIVACAINE/NACL BAG 250 ML EPIDURAL SCH (16:38)
[2019-12-30 16:40] LABS: BASO % 0.2 % (0.0-1.0); EOS % 0.1 % (0.0-3.0); HEMATOCRIT 33.1 % (42.0-52.0); HEMOGLOBIN 11.3 g/dl (13.5-17.5); LYMPH % 5.1 % (24.0-44.0); MEAN CORPUSCULAR HEMOGLOBIN 30.1 pg (27.0-33.0); MEAN CORPUSCULAR HGB CONC 34.1 g/dl (32.0-36.5); MONO # 1.3 10^3/uL (0.0-0.8); MONO % 6.2 % (0.0-5.0); PLATELET COUNT, AUTOMATED 342 10^3/uL (150-450); RED BLOOD COUNT 3.76 10^6/uL (4.30-6.10); WHITE BLOOD COUNT 20.5 10^3/uL (4.0-10.0)
--- NOTE | 2019-12-30 16:40 | REP ---
Portable chest, post operative study, single AP view with the patient upright: The patient has had right upper lobectomy and and right middle lobectomy. Comparison is 12/23/2019. There are two right thoracotomy tubes as an interval change. There is no pneumothorax or pleural fluid collection. The right lung is clear. There are two cerclage wires in the right lateral chest wall as an interval change. The patient is rotated to the left. There is a surgical staple line superomedially in the right lung. I suspect an epidural catheter. There is no lateral view. Left lung is clear. Cardiac size is normal. Impression: The lung arrieta are clear. There are postsurgical changes as described. There is no pneumothorax or pleural fluid collection. Electronically Signed by Massimo Whitten MD 12/30/2019 04:32 P
[2019-12-30] MEDS ORDERED: LR 1,000 ML IV SCH (16:45)
[2019-12-30] MEDS ORDERED: oxyCODONE 5MG TAB PO PRN (16:45)
[2019-12-30] MEDS ORDERED: fentaNYL 100 MCG/2 ML INJECTION (J3010) IV PRN (16:45)
[2019-12-30 17:01] LABS: BLOOD UREA NITROGEN 21 MG/DL (7-18); CALCIUM LEVEL 8.4 MG/DL (8.8-10.2); CARBON DIOXIDE LEVEL 23 MEQ/L (21-32); CHLORIDE LEVEL 110 MEQ/L (98-107); CREATININE FOR GFR 1.18 MG/DL (0.70-1.30); GLOMERULAR FILTRATION RATE > 60.0 (>42); GLUCOSE, FASTING 172 MG/DL (70-100); POTASSIUM SERUM 4.5 MEQ/L (3.5-5.1); SODIUM LEVEL 140 MEQ/L (136-145)
--- NOTE | 2019-12-30 17:13 | ECGEPIP ---
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
--- NOTE | 2019-12-30 18:26 | RO ---
DATE OF PROCEDURE: 12/30/2019 PREPROCEDURE DIAGNOSIS: Right upper lobe lung cancer, adenocarcinoma biopsy proven. Clinical stage I B. POSTOPERATIVE DIAGNOSIS: Right upper lobe lung cancer, adenocarcinoma biopsy proven. Clinical stage I B. 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 There were no endobronchial lesions seen. There were only scant secretions. The initial thoracotomy revealed a completely absent minor fissure. The major oblique fissure while present was also essentially incomplete. The vessels could not be found in the major fissure and the procedure was done with a posterior approach. There must have been collateral bronchial connections as when the right upper lobe bronchus was clamped prior to stapling it the right upper lobe continued to inflate. To ascertain I actually identified and clamped the proper bronchus, I broke scrub and did a bronchoscopy through a double lumen tube and indeed the right upper lobe was clamped and occluded. There were significant adhesions of the lower lobe to the diaphragm which had to be lysed towards the end of the case in order to left the remaining lower lobe rise from the chest. All and all it was an extraordinarily difficult case as I tried to do solely a right upper lobectomy, but could not find enough landmarks in order to create a minor fissure and in addition the lung tissue was much too thick to accompany the stapler. DESCRIPTION OF PROCEDURE: Under satisfactory general anesthesia, the patient was prepped and draped in the usual sterile fashion. Under single lumen tube endotracheal intubation, the bronchoscope was placed into the tracheobronchial tree with the above results. Each segmental and subsegmental bronchus was thoroughly inspected and there were no endobronchial lesions. The patient was then turned on the left lateral decubitus position, sterilely prepped and draped in the usual fashion. I made my usual conservative thoracotomy incision which had to be extended twice throughout the surgery secondary to difficulty with visualization and secondary to all the aberrant anatomy. It was immediately noted that there was no oblique fissure with merely 5 mm incisura onto the surface of the major fissure, probably representing the middle lobe. Dissection was started in the major fissure at what I thought might be the confluence of fissures. Dissection was attempted but I could not find any vessels even after dissection 2.5 cm into the parenchyma. While I could feel the vessels with my fingers, they could not be located. Hemostasis of the bridging veins was achieved by mild electrocautery. I then decided to undertake a posterior approach and therefore the posterior mediastinal pleura was incised exposing the trachea and right upper lobe bronchus and bronchus intermedius. The mediastinal pleura and tissues were dissected away from the right upper lobe bronchus. I then turned my attention to the hilum where the right upper lobe truncus was dissected. Furthermore the veins was dissected. The truncus was gently freed from surrounding tissue, surrounded with a Vesseloop and then stapled with a vascular stapler. I then turned my attention to the vein where the lower branch of the vein was preserved assuming that it was the middle lobe vein. It too was gently dissected off the underling pulmonary artery surrounded with a Vesseloop and stapled as was the right upper lobe truncus. I then turned my attention to the bronchus which was freed posteriorly. This was not an easy dissection, however, I eventually freed it and a staple was placed across it. The lung was reinflated and to my surprise the right upper lobe also inflated. I then broke scrub and did a bronchoscopy to ascertain that the bronchus was indeed occluded, which it was. I rescrubbed and returned to the operating table and divided the bronchus with a CHRIS [place] tri-stapler. Having done the artery, vein and bronchus, I next attempted to create a minor fissure. No matter how hard I tried, I could not find a suitable angle and plane to create the minor fissure. I essentially had no idea where the demarcation of the right middle lobe and the upper lobe were because of the collateral airways between the two lobes. I therefore decided to undertake bilobectomy. The remaining right middle lobe vein was dissected and freed. It was then divide with a vascular stapler. I could then feel the bronchus beneath it. One of the middle lobe arteries was then also freed and divided with a vascular stapler. There was yet another artery which turned out to be a lateral middle lobe artery which was later divided. The bronchus was then divided with a TA 4.8 stapler and divided sharply. This then left a clear path to complete the bilobectomy. The anterior and posterior fissures stapled. Before I completed the fissures and stapling, the lung was reinflated to make sure that I was not by chance catching the lower lobe bronchus. Even though I could feel the lower lobe bronchus because of the extraordinary aberrant anatomy, I took great pains to make sure that I knew where I was before firing the staplers. The specimens were then delivered to the field and for pathology for evaluation. Attention was then turned to the lower lobe where numerous adhesions which were quite dense were divided to the diaphragm. The inferior ligament was then divided up to the inferior pulmonary vein. During the procedure, two ribs were broken, even after extending the incision. These were then repaired with single wires. A five level rib block consisting of Exparel and Marcaine was then instilled. Bronchi were tested and found to be air tight. The lung was then redeflated and mediastinal node dissection ensued by first dividing the azygos vein and repairing it for an azygos vein flap bronchoplasty. The mediastinal block was then removed in total with all of the R2 nodes. There was a very large vein coming off the superior vena cava which was certainly not the subclavian but it probably represented the supreme thoracic vein and that was also divided. Then left the R2 nodes and they also removed en bloc. Hemostasis was achieved by using the Harmonic scalpel. Throughout the case, assiduous care was taken to preserve the phrenic nerve. After completing the mediastinal node dissection and checking for air leaks, the azygos vein was filleted posteriorly and then sewn with interrupted #3-0 Vicryl sutures to the upper lobe bronchial stump so as to perform a bronchoplasty. The mediastinal space was filled with Tisseel glue and all the staple lines were covered with Tisseel glue. The two wires were placed in the ribs to immobilize them and the chest was closed with interrupted #1 Prolene [id number] sutures as pericostals. The lung was then reinflated and the extrathoracic muscles were reapproximated by use of running #0 Vicryl sutures, the subcutaneous tissues by using #3-0 Vicryl sutures and the skin by use of #3-0 Monocryl subcuticular sutures. The patient tolerated the procedure well and left the operating room in satisfactory condition to the recovery room. JIGNESH
[2019-12-30 18:45] VITALS: BP 129/59
[2019-12-30 19:00] VITALS: BP_SYST 128; BP_SYST 142; BP_DIAS 57; BP_DIAS 68
[2019-12-30 19:20] VITALS: BP 142/68
[2019-12-30] MEDS: LEVALBUTEROL 1.25 MG/0.5 ML CONCENTRATE NEB NEB SCH (19:44)
[2019-12-30 20:00] VITALS: BP 122/62
[2019-12-30] MEDS: DOCUSATE SODIUM 100 MG CAP PO SCH (20:29)
[2019-12-30] MEDS: ceFAZolin SOD 1 GM in D5W MINI-BAG PLUS 50 ML IV SCH (20:29)
[2019-12-30] MEDS: HEPARIN SOD (PORCINE) 5000 UNITS/ML VIAL (J1644 PER 1000UNITS) SC SCH (20:30)
[2019-12-30] MEDS: diphenhydrAMINE INJ 50MG/ML VIAL (J1200) IV PRN (20:57)
[2019-12-30 22:00] VITALS: BP 107/59
[2019-12-30] MEDS: KETOROLAC 30 MG/ML VIAL (J1885) IV SCH (22:01)
[2019-12-31] VITALS (8 sets, daily range): BP systolic 109–185; BP diastolic 42–79
[2019-12-31] MEDS: diphenhydrAMINE INJ 50MG/ML VIAL (J1200) IV PRN ×4 (01:11→23:51)
[2019-12-31] MEDS: LEVALBUTEROL 1.25 MG/0.5 ML CONCENTRATE NEB NEB SCH ×4 (01:46→19:41)
[2019-12-31] MEDS: KETOROLAC 30 MG/ML VIAL (J1885) IV SCH ×4 (03:49→21:35)
[2019-12-31 04:00] LABS: BASO % 0.1 % (0.0-1.0); HEMATOCRIT 29.4 % (42.0-52.0); LYMPH # 1.4 10^3/uL (1.5-5.0); LYMPH % 8.8 % (24.0-44.0); MEAN CORPUSCULAR HEMOGLOBIN 30.2 pg (27.0-33.0); MEAN CORPUSCULAR VOLUME 88.8 fl (80.0-96.0); MONO # 1.4 10^3/uL (0.0-0.8); NEUTROPHILS # 12.9 10^3/uL (1.5-8.5); NEUTROPHILS % 81.7 % (36.0-66.0); PLATELET COUNT, AUTOMATED 268 10^3/uL (150-450); RED BLOOD COUNT 3.31 10^6/uL (4.30-6.10); WHITE BLOOD COUNT 15.8 10^3/uL (4.0-10.0)
[2019-12-31] MEDS: ceFAZolin SOD 1 GM in D5W MINI-BAG PLUS 50 ML IV SCH ×3 (04:41→21:14)
[2019-12-31 04:51] LABS: BLOOD UREA NITROGEN 26 MG/DL (7-18); CALCIUM LEVEL 7.8 MG/DL (8.8-10.2); CARBON DIOXIDE LEVEL 22 MEQ/L (21-32); CHLORIDE LEVEL 111 MEQ/L (98-107); CREATININE FOR GFR 1.17 MG/DL (0.70-1.30); GLOMERULAR FILTRATION RATE > 60.0 (>42); GLUCOSE, FASTING 144 MG/DL (70-100); POTASSIUM SERUM 4.3 MEQ/L (3.5-5.1); SODIUM LEVEL 141 MEQ/L (136-145)
[2019-12-31 05:37] LABS: ABG BASE EXCESS -8.5 (-2.0-2.0); ABG HCO3 14.7 MEQ/L (22.0-26.0); ABG O2 SATURATION 94.4 % (95.0-99.0); ABG PARTIAL PRESSURE CO2 22.5 mmHg (35.0-45.0); ABG PARTIAL PRESSURE O2 72.7 mmHg (75.0-100.0); ABG STANDARD HCO3 17.4 MEQ/L (22.0-26.0); ABG TOTAL CO2 15.4 MEQ/L (23.0-31.0); ABG pH (ARTERIAL) 7.433 UNITS (7.350-7.450)
--- NOTE | 2019-12-31 08:19 | REP ---
PA and lateral chest: Comparison is 12/30/2019. Portable chest. The the patient reportedly has a right upper lobectomy and right middle lobectomy. This is unchanged. The The two right thoracotomy tubes are unchanged. Lateral view I suspect there is a pneumothorax anteriorly. There is a new total 0.6 cm nodular density in the right parahilar zone as an interval change. The subcutaneous emphysema along the right lateral chest wall has slightly increased. Left lung is clear. Cardiac size is normal. The epidural catheter is unchanged. Impression: Pneumothorax anteriorly on the lateral view. There is a new 2.6 cm right perihilar nodular density as an interval change. The subcutaneous emphysema along the right lateral chest wall have slightly increased. The two right thoracotomy tubes and epidural catheter are unchanged. The new cerclage wires in the right lateral chest wall are unchanged. Electronically Signed by Massimo Whitten MD 12/31/2019 08:11 A
[2019-12-31 08:21] LABS: ABG BASE EXCESS -4.7 (-2.0-2.0); ABG HCO3 19.4 MEQ/L (22.0-26.0); ABG O2 SATURATION 95.3 % (95.0-99.0); ABG PARTIAL PRESSURE CO2 32.4 mmHg (35.0-45.0); ABG PARTIAL PRESSURE O2 77.7 mmHg (75.0-100.0); ABG STANDARD HCO3 20.5 MEQ/L (22.0-26.0); ABG TOTAL CO2 20.4 MEQ/L (23.0-31.0); ABG pH (ARTERIAL) 7.395 UNITS (7.350-7.450)
[2019-12-31] MEDS: lisinopriL 20 MG TAB PO SCH (09:00)
[2019-12-31] MEDS: ATORVASTATIN 20 MG TAB PO SCH (09:40)
[2019-12-31] MEDS: MOM 30ML SUSPENSION UDC PO SCH (09:40)
[2019-12-31] MEDS: PANTOPRAZOLE 40MG TAB (PROTONIX) PO SCH (09:40)
[2019-12-31] MEDS: atenoloL 50 MG TAB PO SCH (09:40)
[2019-12-31] MEDS: DOCUSATE SODIUM 100 MG CAP PO SCH ×2 (09:40→21:13)
[2019-12-31] MEDS: HEPARIN SOD (PORCINE) 5000 UNITS/ML VIAL (J1644 PER 1000UNITS) SC SCH ×2 (09:42→21:13)
--- NOTE | 2019-12-31 13:27 | IPN ---
DATE: 12/31/2019 This is now the first postoperative day for Mr. Fairbanks who has had an uneventful night of surgery. He is awake and alert, sitting in a comfortably in a chair. He does still have a very large air leak however. His vital signs show a T-max of 99.2 with a heart rate that ranges between 79 and 75 in a sinus rhythm, a respiratory rate that is constant at 20 without the use of accessory muscles, who is 97% to 98% saturated on room air and whose blood pressure is ranging between 109/42 to 135/67. His intake and output the past 24 hours has been recorded as 1755 in and 1420 out for a positivity of 335 mL. It is utterly unclear to me how much has been coming from the chest tubes as there are two different entries. If I had both entries up, it is 285 mL, with a large air leak. Weight today is 97.3 kg compared to 93 kg preoperatively. On physical examination, his right lung shows sounds consistent with a large air leak. I can hear bubbling in the chest. It is hard to differentiate if there is rhonchi or rales beneath. His left lung shows normal vesicular sounds with a percussion note that is full to the diaphragm. There is no subcutaneous emphysema that is palpable on the chest wall or in the base of the neck. Cardiac Exam: Without murmurs, clicks, gallops, or rubs. I cannot feel his PMI. S1, S2 are normal. Abdomen: Soft. Nontender. Bowel sounds are positive. There is no hepatomegaly. No costovertebral angle (CVA) tenderness. Extremities: Show no pretibial edema. No calf tenderness. No differential swelling of the upper extremities. Skin: Warm, dry and perfused. Without cyanosis or mottling, including that of the nail beds and knees. Neck: Supple. There is no jugular venous distention. No subcutaneous emphysema. Trachea is midline. Mouth: Shows her mucous membranes to be pink and moist. Lips and commissures are without lesions. There is no thrush. Eyes: Show her pupils to be equal and reactive. Extraocular movements intact. Sclerae nonicteric. Neurologic: Shows II-XII intact along with gross motor and gross sensation intact. Gait is not tested. Psychiatric showed him to be awake, alert, and oriented times three with appropriate mood and affect and conversational. His white count today is 15.8, down from 20.5 yesterday evening in the recovery room. Hemoglobin and hematocrit are 10.0 and 29.4, down from 11.3 and 33.1. Platelet count is 268 and stable. Differential shows 81% neutrophils, 8% lymphocytes, 9% monocytes. There are no immature forms and no toxic granulations. His electrolytes are essentially normal with a BUN and creatinine of 26 and 1.17, unchanged from yesterday, with a glucose of 144 and a calcium of 7.8. Blood gases this morning which were not called to me showed a pH of 7.43, pCO2 of 22, with a pO2 of 72 and a base excess of -8.5. These did not correlate with his electrolytes and therefore a repeat blood gas was undertaken which showed a pH of 7.39, pCO2 of 32 with a base excess of -4.7 and a pO2 of 77. His chest x-ray today shows his lung fully expanded to the chest wall with obligate volume loss secondary to the bilobectomy. There are postoperative changes. There is minimal subcutaneous emphysema. Chest tubes are in good place. There are no posterior infiltrates. IMPRESSION: 1. Postoperative day #1 status post upper and middle lobe bilobectomy. 2. Adenocarcinoma right upper lobe, clinical Stage I B, final pathology pending. 3. Chronic obstructive pulmonary disease. 4. Hypertension. 5. Coronary artery disease. 6. Status post transient ischemic attack 07/18/2019. 7. Hypercholesterolemia. 8. Large postoperative air leak. PLAN AND DISCUSSION: I will keep him on suction today at -20 cm of water. I will not diurese him today. I will keep him in the intensive care unit. His bronchi were all intact at surgery yesterday and this is no doubt a parenchymal leak secondary to the extensive manipulation of the major fissure which was 50% incomplete. As noted above, I will keep him in the intensive care unit.
[2019-12-31] MEDS: FENTANYL/BUPIVACAINE/NACL BAG 250 ML EPIDURAL SCH (14:11)
[2019-12-31] MEDS: ACETAMINOPHEN TAB 650MG DOSE (2X325MG) PO PRN (21:13)
[2019-12-31] MEDS: LEVALBUTEROL 1.25 MG/0.5 ML CONCENTRATE NEB NEB PRN (23:44)
[2020-01-01] VITALS: BP 116/56
[2020-01-01] MEDS: LEVALBUTEROL 1.25 MG/0.5 ML CONCENTRATE NEB NEB SCH ×4 (02:00→20:56)
[2020-01-01 04:00] VITALS: BP 137/72
[2020-01-01] MEDS: KETOROLAC 30 MG/ML VIAL (J1885) IV SCH ×4 (04:38→22:08)
[2020-01-01] MEDS: ceFAZolin SOD 1 GM in D5W MINI-BAG PLUS 50 ML IV SCH ×2 (04:38→12:31)
[2020-01-01 05:07] LABS: BASO # 0.1 10^3/uL (0.0-0.2); BASO % 0.3 % (0.0-1.0); EOS # 0.3 10^3/uL (0.0-0.5); EOS % 1.9 % (0.0-3.0); HEMATOCRIT 27.7 % (42.0-52.0); HEMOGLOBIN 9.1 g/dl (13.5-17.5); LYMPH # 2.7 10^3/uL (1.5-5.0); LYMPH % 17.3 % (24.0-44.0); MEAN CORPUSCULAR HGB CONC 32.9 g/dl (32.0-36.5); MEAN CORPUSCULAR VOLUME 91.4 fl (80.0-96.0); MONO # 1.1 10^3/uL (0.0-0.8); MONO % 6.9 % (0.0-5.0); NEUTROPHILS # 11.5 10^3/uL (1.5-8.5); NEUTROPHILS % 73.2 % (36.0-66.0); PLATELET COUNT, AUTOMATED 214 10^3/uL (150-450); RED BLOOD COUNT 3.03 10^6/uL (4.30-6.10); WHITE BLOOD COUNT 15.7 10^3/uL (4.0-10.0)
[2020-01-01 05:29] LABS: BLOOD UREA NITROGEN 30 MG/DL (7-18); CARBON DIOXIDE LEVEL 25 MEQ/L (21-32); CHLORIDE LEVEL 110 MEQ/L (98-107); CREATININE FOR GFR 1.17 MG/DL (0.70-1.30); GLOMERULAR FILTRATION RATE > 60.0 (>42); GLUCOSE, FASTING 133 MG/DL (70-100); POTASSIUM SERUM 4.5 MEQ/L (3.5-5.1); SODIUM LEVEL 141 MEQ/L (136-145)
[2020-01-01] MEDS ORDERED: MORPHINE 2 MG/ML 1ML VIAL (J2270) As Ordered ONE (05:40)
[2020-01-01] MEDS: MORPHINE 2 MG/ML 1ML VIAL (J2270) IV PRN (05:44)
[2020-01-01 07:30] VITALS: BP 145/67
--- NOTE | 2020-01-01 07:38 | REP ---
PA and lateral chest: Comparison is 12/31/2019. I again suspect a small pneumothorax anteriorly on the lateral view. Mild The two right thoracotomy tubes are unchanged. The 2.6 cm nodular density in the right perihilar zone on the comparison study is superimposed by the right hilus on the current examination is obscured. Right hilus appears enlarged. This is unchanged. Left lung is clear. Cardiac size is normal. The subcutaneous emphysema along the right lateral chest wall is slightly increased. Epidural catheter is unchanged. Electronically Signed by Massimo Whitten MD 01/01/2020 07:30 A
[2020-01-01] MEDS: MOM 30ML SUSPENSION UDC PO SCH (08:10)
[2020-01-01] MEDS: HEPARIN SOD (PORCINE) 5000 UNITS/ML VIAL (J1644 PER 1000UNITS) SC SCH ×2 (08:10→20:37)
[2020-01-01] MEDS: PANTOPRAZOLE 40MG TAB (PROTONIX) PO SCH (08:11)
[2020-01-01] MEDS: ATORVASTATIN 20 MG TAB PO SCH (08:11)
[2020-01-01] MEDS: DOCUSATE SODIUM 100 MG CAP PO SCH ×2 (08:11→20:37)
[2020-01-01] MEDS: lisinopriL 20 MG TAB PO SCH (08:11)
[2020-01-01] MEDS: atenoloL 50 MG TAB PO SCH (08:11)
[2020-01-01] MEDS: FENTANYL/BUPIVACAINE/NACL BAG 250 ML EPIDURAL SCH (08:15)
[2020-01-01] MEDS ORDERED: FUROSEMIDE 40 MG/4 ML VIAL (J1940) IV ONE (09:45)
--- NOTE | 2020-01-01 11:50 | IPN ---
DATE: 01/01/2020 This is now the second postoperative day for Mr. Fairbanks. He is doing quite well although he has had more pain control problems over the last 8 hours. Anesthesia has seen him and is going to doubly concentrate the epidural. Right now as I am seeing him he is not complaining of any pain. His vital signs show a T-max of 100.6 with a heart rate that ranges between 82 and 77 in a sinus rhythm, a respiratory rate of 28 to 20 without the use of accessory muscles, who is 97% saturated now on room air and blood pressure is ranging between 145/67 to 152/71. His intake and output the past 24 hours has been recorded as 2380 in and 1585 out for a positivity of 800 mL. He has taken in 1390 mL in by mouth intake and 990 in IV. The IV has not been discontinued. His urine output has been 360 and his chest tube output was 625. He still has a large air leak, but I perceive that it is less than it was yesterday. His weight today is 97.8 kg compared to 97.3 kg yesterday. On physical examination, his right lung shows squeaks and rhonchi that are consistent with an air leak. Left lung shows normal vesicular sounds without wheezes, rhonchi, or rales. Percussion note is full to the diaphragm. Cardiac Exam: Without murmurs, clicks, gallops, or rubs. I cannot feel his PMI. S1, S2 are normal. Abdomen: Is distended and tympanitic. He is having flatus. Extremities: Show trace pretibial edema. No calf tenderness. No differential swelling of the upper extremities. Skin: Warm, dry and perfused without cyanosis or mottling, including that of the nail beds and knees. Neck: Supple. There is no jugular venous distention. No subcutaneous emphysema. Trachea is midline. Mouth: Shows his mucous membranes to be pink and moist. Lips and commissures are without lesions. There is no thrush. Eyes: Show his pupils to be equal and reactive. Extraocular movements intact. Sclerae nonicteric. Neurologic: Shows II-XII intact along with gross motor and gross sensation intact. Gait is not tested. Psychiatric showed him to be awake, alert, and oriented times three with appropriate mood and affect and conversational. His white count today is 15.7, unchanged from yesterday with a hemoglobin and hematocrit of 9.1 and 27.7 down from 10.0 and 29.4 yesterday. Platelet count is 214 and stable. Differential shows 73% neutrophils, 17% lymphocytes, 6% monocytes. There are no immature forms and no toxic granulations. His chemistries today show essentially normal electrolytes with a BUN and creatinine of 30 and 1.17, a glucose of 133 with a calcium of 8.0. His creatinine has been unchanged since the recovery room. There are no blood gases on him today. His chest x-ray shows a diffuse haze in the right hemithorax. This is changed from yesterday. He has a mediastinal shift with obligate volume loss from the bilobectomy. Costophrenic angles, however, are sharp. There is minimal subcutaneous emphysema. The air leak is well controlled. I do not see any posterior infiltrates on the lateral film. IMPRESSION: 1. Postoperative day #2 status post bilobectomy. 2. Adenocarcinoma right upper lobe, clinical Stage I, final pathology pending. 3. Chronic obstructive pulmonary disease. 4. Hypertension. 5. Coronary artery disease. 6. Status post transient ischemic attack June 2019. 7. Hypercholesterolemia. 8. Large postoperative air leak getting smaller. PLAN AND DISCUSSION: I will continue him on chest tube suction today. I have gone over the pathology with Dr. Puckett. His mediastinal nodes are negative. There is some suspicious areas in a intrapulmonary node. It could very well be, however, a germinal center. Stains are being run. The worse case scenario is that he would have stage II disease. We will await further staining and pathology for Saturday. I will keep him in the intensive care unit again today although he is doing quite well. I will probably transfer him tomorrow. Anesthesia has adjusted the pain control and it looks to be well managed. He is going to continue his lung expansion therapy.
[2020-01-01] MEDS: FENTANYL/BUPIVACAINE BAG 250 ML EPIDURAL SCH (12:30)
[2020-01-01 20:00] VITALS: BP 117/58
[2020-01-01] MEDS: diphenhydrAMINE INJ 50MG/ML VIAL (J1200) IV PRN (20:52)
[2020-01-02] VITALS (7 sets, daily range): BP systolic 93–139; BP diastolic 51–77
[2020-01-02] MEDS: LEVALBUTEROL 1.25 MG/0.5 ML CONCENTRATE NEB NEB SCH ×4 (01:28→19:18)
[2020-01-02] MEDS: diphenhydrAMINE INJ 50MG/ML VIAL (J1200) IV PRN ×4 (02:56→20:08)
[2020-01-02] MEDS: KETOROLAC 30 MG/ML VIAL (J1885) IV SCH ×4 (04:21→21:38)
[2020-01-02 05:03] LABS: BASO # 0.1 10^3/uL (0.0-0.2); BASO % 0.4 % (0.0-1.0); EOS # 1.1 10^3/uL (0.0-0.5); EOS % 6.8 % (0.0-3.0); HEMATOCRIT 28.2 % (42.0-52.0); HEMOGLOBIN 9.1 g/dl (13.5-17.5); LYMPH # 2.5 10^3/uL (1.5-5.0); LYMPH % 15.9 % (24.0-44.0); MEAN CORPUSCULAR HEMOGLOBIN 29.7 pg (27.0-33.0); MEAN CORPUSCULAR HGB CONC 32.3 g/dl (32.0-36.5); MEAN CORPUSCULAR VOLUME 92.2 fl (80.0-96.0); MONO % 6.4 % (0.0-5.0); NEUTROPHILS # 11.2 10^3/uL (1.5-8.5); NEUTROPHILS % 69.9 % (36.0-66.0); PLATELET COUNT, AUTOMATED 235 10^3/uL (150-450); RED BLOOD COUNT 3.06 10^6/uL (4.30-6.10)
[2020-01-02 05:23] LABS: BLOOD UREA NITROGEN 29 MG/DL (7-18); CALCIUM LEVEL 8.1 MG/DL (8.8-10.2); CARBON DIOXIDE LEVEL 28 MEQ/L (21-32); CHLORIDE LEVEL 109 MEQ/L (98-107); CREATININE FOR GFR 1.23 MG/DL (0.70-1.30); GLOMERULAR FILTRATION RATE > 60.0 (>42); GLUCOSE, FASTING 126 MG/DL (70-100); POTASSIUM SERUM 4.8 MEQ/L (3.5-5.1); SODIUM LEVEL 140 MEQ/L (136-145)
[2020-01-02] MEDS: MOM 30ML SUSPENSION UDC PO SCH (08:22)
[2020-01-02] MEDS: HEPARIN SOD (PORCINE) 5000 UNITS/ML VIAL (J1644 PER 1000UNITS) SC SCH ×2 (08:23→20:08)
[2020-01-02] MEDS: ATORVASTATIN 20 MG TAB PO SCH (08:23)
[2020-01-02] MEDS: PANTOPRAZOLE 40MG TAB (PROTONIX) PO SCH (08:24)
[2020-01-02] MEDS: ACETAMINOPHEN TAB 650MG DOSE (2X325MG) PO PRN (08:24)
[2020-01-02] MEDS: DOCUSATE SODIUM 100 MG CAP PO SCH ×2 (08:25→20:07)
[2020-01-02] MEDS: atenoloL 50 MG TAB PO SCH (08:27)
[2020-01-02] MEDS: lisinopriL 20 MG TAB PO SCH (08:50)
[2020-01-02] MEDS: FENTANYL/BUPIVACAINE BAG 250 ML EPIDURAL SCH (09:15)
[2020-01-02] MEDS ORDERED: FUROSEMIDE 40 MG/4 ML VIAL (J1940) IV ONE (11:00)
--- NOTE | 2020-01-02 12:47 | REP ---
REASON: Followup. COMPARISON: Multiple, the latest yesterday. Right-sided thoracotomy tubes are unchanged. Postoperative change right hemithorax, stable. No change in the cardiomediastinal silhouette or lung arrieta. The pleural angles are unchanged, remaining sharp. There is stable subcutaneous emphysema on the right. There is no significant change in the osseous structures. IMPRESSION: Stable exam. Unreviewed
--- NOTE | 2020-01-02 14:12 | IPN ---
DATE: 01/02/2020 This is now the third postoperative day for Mr. Fairbanks. There was some problem with pain control earlier this morning, which has now been relieved with a bolus and increasing the rate of the epidural. Last night he says that he had an episode where he felt short of breath but that has spontaneously resolved. He still remains on room air. His vital signs show a maximum temperature (t-max) of 99.0 with a heart rate that ranges between 82 and 73 in a sinus rhythm, respiratory rate of 18 to 20 without the use of accessory muscles, who is 93 to 95% saturated on room air. His blood pressure is ranging between 103/59 to 137/77. His intake and output over the past 24 hours has been recorded as 1778 in and 2335 out for a negativity of 550 mL. He has put out 600 mL from the chest tube and there is still a large air leak. Weight today is 97.6 kg compared to 97.8 kg yesterday. PHYSICAL EXAMINATION: LUNGS: His left lung shows normal vesicular sounds with a percussion note that is full to the diaphragm. Right lung shows sounds consistent with an air leak with bubbling and rhonchi. I hear no wheezing. Percussion note is full to the diaphragm. CARDIAC EXAM: Without murmurs, clicks, gallops or rubs. I cannot feel his point of maximum impulse (PMI). S1, S2 are normal. ABDOMEN: Soft, nontender. Bowel sounds positive. He is tympanitic and slightly distended. There is no hepatomegaly. No costovertebral angle tenderness. EXTREMITIES: Trace pretibial edema. No calf tenderness. No differential swelling of the upper extremities. SKIN: Warm, dry and perfused without cyanosis or mottling, including that of the nail beds and knees. NECK: Supple. There is no jugular venous distention. No subcutaneous emphysema. Trachea is midline. MOUTH: Shows his mucous membranes to be pink and moist. Lips and commissures without lesions. There is no thrush. EYES: Show his pupils to be equal and reactive. Extraocular motion intact. Sclerae anicteric. NEUROLOGIC: Shows II through XII intact with gross motor and gross sensation intact. Gait is not tested. PSYCHIATRIC: Shows him to be awake and alert, oriented times three with appropriate mood and affect and conversational. LABORATORY DATA: His white count today is 16.0, slightly up from 15.7 yesterday. Hemoglobin and hematocrit are 9.1 and 28.2, essentially unchanged from yesterday with a platelet count of 235 and stable. Differential shows 69% neutrophils, 15% lymphocytes, 6% monocytes. There are no immature forms and no toxic granulations. Electrolytes today are normal with a BUN and creatinine of 29 and 1.23, which is slightly changed from 30 and 1.17 yesterday. Glucose is 126 with a calcium of 8.1. Chest x-ray today shows his lung fully expanded to the chest wall. There is mediastinal shift secondary to obligate volume loss from the bilobectomy. Costophrenic angles are sharp. There is only minimal subcutaneous emphysema, unchanged from yesterday and in fact looks to be dissipating. The air leak is definitely coming from the anterior tube. He has had a small anterior pneumothorax on the chest x-ray, which is equivocal on today's x-ray. Chest tubes are in good place. IMPRESSION: 1. Postoperative day #3 status post bilobectomy, upper and middle lobes. 2. Adenocarcinoma of right upper lobe, clinical stage 1, final pathology pending. 3. Chronic obstructive pulmonary disease (COPD). 4. Hypertension. 5. Coronary artery disease. 6. Status post transient ischemic attack in June 2019. 7. Hypercholesterolemia. 8. Large postoperative air leak, continuing. PLAN/DISCUSSION: The final pathology has indeed come back and all nodes are negative, including the hilar nodes. The tumor is moderately to poorly differentiated measuring 2 cm at its largest dimension, classifying him as a [id number], which matched to stage I A2. He has a large parenchymal air leak, which will eventually stop, although it may take longer than usual. He may come to a blood patch if it does not stop in the next 7 days. Certainly, I would like to see it get smaller before doing a blood patch. I will again diurese him today. I suspect the increased output from the chest tube is in part due to his large air leak with increased inflammation of the pleura.
[2020-01-02 21:41] LABS: HEMATOCRIT 28.9 % (42.0-52.0); HEMOGLOBIN 9.5 g/dl (13.5-17.5); MEAN CORPUSCULAR HEMOGLOBIN 30.3 pg (27.0-33.0); MEAN CORPUSCULAR HGB CONC 32.9 g/dl (32.0-36.5); PLATELET COUNT, AUTOMATED 255 10^3/uL (150-450); RED BLOOD COUNT 3.14 10^6/uL (4.30-6.10); WHITE BLOOD COUNT 16.1 10^3/uL (4.0-10.0)
--- NOTE | 2020-01-02 21:48 | REPVR ---
PROCEDURE INFORMATION: Exam: XR Chest, 1 View Exam date and time: 01/02/2020 9:10 PM Age: 74 years old Clinical indication: Chest pain TECHNIQUE: Imaging protocol: XR of the chest Views: 1 view. COMPARISON: CR Chest, 2 view PA, Lat 01/02/2020 7:30 AM FINDINGS: Tubes, catheters and devices: Two chest tubes are present on the right. Lungs: Opacities in the right lung are unchanged. Left lung is clear. Pleural space: There may be a very small (less than 5%) right apical pneumothorax. No pneumothorax on the left. Heart/Mediastinum: Mild volume loss in the right chest with slight mediastinal displacement to the right. No cardiomegaly. Soft tissues: Large amount of subcutaneous emphysema in the chest, greater on the right which has worsened since the prior exam. IMPRESSION: 1. Worsening subcutaneous emphysema. 2. Possible tiny right apical pneumothorax. Electronically signed by: Neville Sauceda On 01/02/2020 21:48:25 PM
[2020-01-02 22:01] LABS: CALCIUM LEVEL 8.4 MG/DL (8.8-10.2); CREATININE FOR GFR 1.26 MG/DL (0.70-1.30); GLOMERULAR FILTRATION RATE 59.9 (>42); MAGNESIUM LEVEL 2.6 MG/DL (1.8-2.4); POTASSIUM SERUM 4.3 MEQ/L (3.5-5.1)
[2020-01-03] VITALS (8 sets, daily range): BP systolic 101–151; BP diastolic 57–75
[2020-01-03] MEDS: LEVALBUTEROL 1.25 MG/0.5 ML CONCENTRATE NEB NEB SCH ×4 (01:54→20:06)
[2020-01-03] MEDS: FENTANYL/BUPIVACAINE BAG 250 ML EPIDURAL SCH (04:27)
[2020-01-03] MEDS: KETOROLAC 30 MG/ML VIAL (J1885) IV SCH ×4 (04:30→21:28)
[2020-01-03 05:24] LABS: BASO % 0.1 % (0.0-1.0); EOS # 0.3 10^3/uL (0.0-0.5); EOS % 1.8 % (0.0-3.0); HEMATOCRIT 28.9 % (42.0-52.0); HEMOGLOBIN 9.4 g/dl (13.5-17.5); LYMPH # 2.2 10^3/uL (1.5-5.0); MEAN CORPUSCULAR HGB CONC 32.5 g/dl (32.0-36.5); MEAN CORPUSCULAR VOLUME 92.3 fl (80.0-96.0); MONO # 0.5 10^3/uL (0.0-0.8); MONO % 3.3 % (0.0-5.0); NEUTROPHILS # 10.6 10^3/uL (1.5-8.5); NEUTROPHILS % 78.2 % (36.0-66.0); PLATELET COUNT, AUTOMATED 270 10^3/uL (150-450); RED BLOOD COUNT 3.13 10^6/uL (4.30-6.10); WHITE BLOOD COUNT 13.5 10^3/uL (4.0-10.0)
[2020-01-03 05:48] LABS: BLOOD UREA NITROGEN 28 MG/DL (7-18); CARBON DIOXIDE LEVEL 29 MEQ/L (21-32); CHLORIDE LEVEL 106 MEQ/L (98-107); CREATININE FOR GFR 1.15 MG/DL (0.70-1.30); GLOMERULAR FILTRATION RATE > 60.0 (>42); GLUCOSE, FASTING 130 MG/DL (70-100); POTASSIUM SERUM 4.7 MEQ/L (3.5-5.1); SODIUM LEVEL 138 MEQ/L (136-145)
[2020-01-03] MEDS: MOM 30ML SUSPENSION UDC PO SCH (08:40)
[2020-01-03] MEDS: ATORVASTATIN 20 MG TAB PO SCH (08:40)
[2020-01-03] MEDS: PANTOPRAZOLE 40MG TAB (PROTONIX) PO SCH (08:41)
[2020-01-03] MEDS: HEPARIN SOD (PORCINE) 5000 UNITS/ML VIAL (J1644 PER 1000UNITS) SC SCH ×2 (08:41→20:04)
[2020-01-03] MEDS: ACETAMINOPHEN TAB 650MG DOSE (2X325MG) PO PRN (08:41)
[2020-01-03] MEDS: DOCUSATE SODIUM 100 MG CAP PO SCH ×2 (08:41→20:04)
[2020-01-03] MEDS: lisinopriL 20 MG TAB PO SCH (08:42)
[2020-01-03] MEDS: atenoloL 50 MG TAB PO SCH (08:42)
[2020-01-03] MEDS: MORPHINE 2 MG/ML 1ML VIAL (J2270) IV PRN (09:21)
[2020-01-03] MEDS ORDERED: NALOXONE INJ 0.4 MG/1 ML VIAL (J2310) IV PRN (09:30)
[2020-01-03] MEDS ORDERED: NALBUPHINE HCL 10 MG/ML AMP (J2300) IV PRN (09:30)
[2020-01-03] MEDS ORDERED: EPIDURAL/PCA KEYS XX PRN (09:30)
[2020-01-03] MEDS: MORPHINE 1MG/ML IN 0.9% NACL 100ML IV BAG IV PRN (09:48)
[2020-01-03] MEDS ORDERED: FUROSEMIDE 40 MG/4 ML VIAL (J1940) IV ONE (12:00)
--- NOTE | 2020-01-03 12:27 | ECGEPIP ---
[facility] Test Date: 2020-01-02 Pat Name: EDIE JAMES Department: Room: [place] [address] Gender: Male Yoke Presser: HORTENCIA : 1945 Requested By: Russell Colin Order Number: [id number] Reading MD: Laine Fernández Measurements Intervals [place] Rate: 72 P: 48 VA: 174 QRS: -17 QRSD: 108 T: 7 QT: 356 QTc: 392 Interpretive Statements SINUS RHYTHM Left axis deviation POSSIBLE Left ventricular hypertrophy LATERAL REPOLARIZATION ABN IMPROVED NOW WITH NEW POSSIBLE INF ST TWAVE CHANGES A EVIDENT BY POSSIBLE PNEUDONORMALIZATION C/W 12/30/19 Electronically Signed on 01-03-2020 12:27:27 EDT by Laine Fernández
[2020-01-03] MEDS: BISACODYL 10 MG SUPP PR PRN (13:03)
--- NOTE | 2020-01-03 13:50 | IPN ---
DATE: 01/03/2020 This is now the fourth postoperative day for Mr. Fairbanks. Yesterday evening, he was noted to have increasing subcutaneous emphysema. He had complained initially to the nurses that he just didn't feel right. His saturations were doing well. On the way in, I asked the nursing staff to obtain a CBC, electrolytes, BUN and creatinine, along with a chest x-ray. Upon seeing the chest x-ray, it was clear that the subcutaneous emphysema which had been just minimal that morning was now markedly increased. I therefore the chest tubes into separate [place] and placed the anterior chest tube on -40. Today, he is feeling better. There was some pain control difficulty with the epidural catheter leaking, therefore, anesthesia has placed him on a TANGLED YARN SPOOL STRAIGHTENER pump and removed the epidural catheter. Gratifyingly, his pain is being controlled with the TANGLED YARN SPOOL STRAIGHTENER and I will not insist upon replacing the epidural unless his pain gets out of control again. His vital signs show a T-max of 98.3 with a heart rate that ranges between 78 and 81 in a sinus rhythm, with a respiratory rate of 25 to 28 without the use of accessory muscles, who is 98% saturated on room air and whose blood pressure is ranging between 146/68 to 101/57. His intake and output the past 24 hours has been recorded as 1140 in and 1725 out for a negativity of 585 mL. He has put out 490 mL from the chest tube which is markedly better than the 600 mL he was putting out previously. He still has an air leak in the anterior tube, but it also looks less than it has been. Weight today is 98.1 kg compared to 97.6 kg yesterday. On physical examination, this is the first day I can hear breath sounds on the right side without the squeaks and rattles of a large air leak. I hear normal vesicular sounds on top of the crackles of subcutaneous emphysema. His left lung shows normal vesicular sounds. Percussion notes are full to the diaphragm. Cardiac Exam: Without murmurs, clicks, gallops, or rubs. I cannot feel his PMI. S1, S2 are normal. Abdomen: Soft. Nontender. Bowel sounds are positive. He is tympanitic and distended and has not yet had a bowel movement. There is no hepatomegaly. No costovertebral angle (CVA) tenderness. Extremities: Show no pretibial edema. No calf tenderness. No differential swelling of the upper extremities. Skin: Warm, dry and perfused. Without cyanosis or mottling, including that of the nail beds and knees. Neck: Supple. There is no jugular venous distention. No subcutaneous emphysema. Trachea is midline. Mouth: Shows his mucous membranes to be pink and moist. Lips and commissures are without lesions. There is no thrush. Eyes: Show his pupils to be equal and reactive. Extraocular movements intact. Sclerae nonicteric. Neurologic: Shows II-XII intact along with gross motor and gross sensation intact. Gait is not tested. Psychiatric showed him to be awake, alert, and oriented times three with appropriate mood and affect and conversational. He is speaking with more nasal sounds secondary to his subcutaneous emphysema. His white count today is 13.5, down from 16.1 yesterday. Hemoglobin and hematocrit are 9.4 and 28.9, unchanged from yesterday, with a platelet count of 270 and stabl. Differential shows 78% neutrophils, 16% lymphocytes and 3% monocytes. There are no immature forms and no toxic granulations. His electrolytes are normal with a BUN and creatinine of 28 and 1.15, down from creatinine of 1.26 last night and 1.23 yesterday morning. Glucose is 130 with calcium of 8.0. His chest x-ray today shows his lung fully expanded to the chest wall. The subcutaneous emphysema is now starting to dissipate, although there is quite a lot of it. Chest tube is in a good place. Costophrenic angles are sharp. There is a mediastinal shift to the right due to the obligate volume loss from the bilobectomy. IMPRESSION: 1. Postoperative day #4 status post bilobectomy upper and middle lobes right side. 2. Adenocarcinoma right upper lobe, Stage I, [id number]. 3. Hypertension. 4. Coronary artery disease. 5. Status post transient ischemic attack in June 2019. 6. Hypercholesterolemia. 7. Large postoperative air leak, diminishing. 8. Subcutaneous emphysema, controlled. PLAN AND DISCUSSION: I will continue him on -40 cm of suction on the anterior chest tube. I will again diurese him. I am more encouraged today about his air leak as it is much smaller than it has been. The stafford is keeping the lung adherent to the chest wall.
--- NOTE | 2020-01-03 13:53 | REP ---
REASON: Followup right upper and right middle lobe lobectomy. COMPARISON: Multiple, latest yesterday. Right-sided thoracotomy tubes are unchanged. Cardiomediastinal silhouette is unchanged. The lung arrieta are unchanged. The degree of subcutaneous emphysema is essentially unchanged. The osseous structures are unchanged. IMPRESSION: No change. Electronically Signed by Joseph Rock DO 01/03/2020 01:59 P
[2020-01-04] VITALS (7 sets, daily range): BP systolic 111–158; BP diastolic 57–72
[2020-01-04] MEDS: LEVALBUTEROL 1.25 MG/0.5 ML CONCENTRATE NEB NEB SCH ×4 (04:03→20:40)
[2020-01-04] MEDS: KETOROLAC 30 MG/ML VIAL (J1885) IV SCH ×3 (04:05→16:21)
[2020-01-04 04:55] LABS: BASO % 0.2 % (0.0-1.0); EOS # 0.6 10^3/uL (0.0-0.5); EOS % 5.5 % (0.0-3.0); HEMOGLOBIN 9.6 g/dl (13.5-17.5); LYMPH % 19.8 % (24.0-44.0); MEAN CORPUSCULAR HEMOGLOBIN 29.4 pg (27.0-33.0); MEAN CORPUSCULAR VOLUME 91.7 fl (80.0-96.0); MONO # 0.7 10^3/uL (0.0-0.8); MONO % 6.3 % (0.0-5.0); NEUTROPHILS # 6.9 10^3/uL (1.5-8.5); NEUTROPHILS % 67.7 % (36.0-66.0); PLATELET COUNT, AUTOMATED 255 10^3/uL (150-450); RED BLOOD COUNT 3.27 10^6/uL (4.30-6.10); WHITE BLOOD COUNT 10.2 10^3/uL (4.0-10.0)
[2020-01-04 05:14] LABS: BLOOD UREA NITROGEN 30 MG/DL (7-18); CARBON DIOXIDE LEVEL 30 MEQ/L (21-32); CHLORIDE LEVEL 107 MEQ/L (98-107); CREATININE FOR GFR 1.13 MG/DL (0.70-1.30); GLOMERULAR FILTRATION RATE > 60.0 (>42); GLUCOSE, FASTING 103 MG/DL (70-100); POTASSIUM SERUM 4.4 MEQ/L (3.5-5.1); SODIUM LEVEL 144 MEQ/L (136-145)
[2020-01-04] MEDS ORDERED: FUROSEMIDE 40 MG/4 ML VIAL (J1940) IV ONE (08:00)
[2020-01-04] MEDS: HEPARIN SOD (PORCINE) 5000 UNITS/ML VIAL (J1644 PER 1000UNITS) SC SCH ×2 (08:42→21:15)
[2020-01-04] MEDS: ATORVASTATIN 20 MG TAB PO SCH (08:43)
[2020-01-04] MEDS: PANTOPRAZOLE 40MG TAB (PROTONIX) PO SCH (08:43)
[2020-01-04] MEDS: atenoloL 50 MG TAB PO SCH (08:44)
[2020-01-04] MEDS: DOCUSATE SODIUM 100 MG CAP PO SCH ×2 (08:44→21:15)
[2020-01-04] MEDS: MOM 30ML SUSPENSION UDC PO SCH (08:47)
[2020-01-04] MEDS: lisinopriL 20 MG TAB PO SCH (08:58)
[2020-01-04] MEDS: ONDANSETRON 4MG/2ML VIAL (J2405) IV PRN ×2 (09:20→16:40)
--- NOTE | 2020-01-04 09:41 | REP ---
Chest x-ray: Two views. History: Bilobectomy, right upper lobe and right middle lobe. Comparison study: January 03, 2020. The left lung remains clear. There are two right-sided chest tubes again noted in place. There is extensive extrathoracic soft tissue emphysema along the right chest and in the base of the neck bilaterally. This is unchanged. There is no discernible pneumothorax. There are metallic sutures on two of the right posterolateral ribs. Volume loss in the right hemithorax postop. No pleural effusion seen. Impression: Post thoracotomy changes on the right. Two right chest tubes in place. Findings essentially unchanged. Electronically Signed by Shaquille Luevano MD 01/04/2020 11:30 A
--- NOTE | 2020-01-04 13:02 | IPN ---
DATE: 01/04/2020 This is now the fifth postoperative day for Mr. Fairbanks. His pain is being well controlled with the TIME CHECKER pump. He still has an air leak, but it is less than it was and it is coming from the anterior tube. His vital signs show a T-max of 97.6 with a heart rate that ranges between 71 and 84 and is sinus rhythm, respiratory rate of 16 to 20 without the use of accessory muscles who is 95 to 93% saturated on room air, and whose blood pressure is ranging between 145/67 to 111/60. His intake and output the past 24 hours has been recorded as 1820 in and 1873 out for near equality. He has put out 478 mL from the chest tube and there is still an air leak from the anterior tube. So far today, he has put out 100 mL. He weighs 97.9 kilos today compared to 98.1 kilos yesterday. On physical examination the chest shows diminished subcutaneous emphysema to palpation, in fact, I cannot feel any subcutaneous emphysema over the pectoral muscles or on the base of the neck. Lungs show the crackles of subcutaneous emphysema posteriorly, but beneath those I could hear normal vesicular sounds without wheezes, rhonchi or rales. Left lung shows normal vesicular sounds. Percussion notes are full to the diaphragm. Cardiac exam is without murmurs, clicks, gallops or rubs. I cannot feel his point of maximal impulse (PMI). S1 and S2 are normal. Abdomen is soft and nontender. Bowel sounds are positive. There is no hepatomegaly. No costovertebral angle (CVA) tenderness. Extremities show no pretibial edema. No calf tenderness. No differential swelling of the upper extremities. Skin is warm, dry and perfused without cyanosis or mottling including that of the nail beds and the knees. Neck is supple. There is no jugular venous distention. No subcutaneous emphysema. Trachea is midline. Mouth shows his mucous membranes to be pink and moist. Lips and commissures are without lesions. There is no thrush. Eyes show his pupils to be equal, reactive. Extraocular motions are intact. Sclera nonicteric. Neuro shows II through XII intact, along with gross motor and gross sensation intact. Gait is not tested. Psychiatric shows him to be awake and alert, oriented times three with appropriate mood, affect and conversational. His white count today is down to 10.2 from 13.5 yesterday. Hemoglobin and hematocrit are 9.6 and 30.0, slightly up from 9.4 and 28.9 yesterday. Platelet count is 255 and is stable, and differential shows 67% neutrophils, 19% lymphocytes, 6% monocytes. There are no immature forms. No toxic granulations. Electrolytes are normal with a BUN and creatinine of 30, and 1.13 with a glucose of 101 and a calcium of 8.0. The patient's chest x-ray shows his lung fully expanded to the chest wall with obligate volume loss from the bilobectomy. Subcutaneous emphysema continues to dissipate. Costophrenic angles are sharp and I see no posterior infiltrates on the lateral film. There is a mediastinal shift to the right secondary to the volume loss from the bilobectomy. IMPRESSION: 1. Postop day number 5 status post bilobectomy, upper and middle lobes, right side. 2. Adenocarcinoma right upper lobe, stage IA2, [id number]. 3. Hypertension. 4. Coronary artery disease (CAD). 5. Status post transient ischemic attack (TIA) in June 2019. 6. Hypercholesterolemia. 7. Postoperative air leak improving. 8. Subcutaneous emphysema improving. PLAN AND DISCUSSION: I will transfer him to the PCU today. As his epidural is out, I will discontinue his Parsons catheter. I will continue to diurese him. I will not make any significant moves on his air leak until at least 7 days out.
[2020-01-04] MEDS: MORPHINE 1MG/ML IN 0.9% NACL 100ML IV BAG IV PRN (16:20)
[2020-01-04] MEDS: BISACODYL 10 MG SUPP PR PRN (18:18)
[2020-01-04] MEDS ORDERED: NS 1,000 ML IV SCH (19:00)
[2020-01-05] VITALS (8 sets, daily range): BP systolic 98–145; BP diastolic 55–74
[2020-01-05] MEDS: LEVALBUTEROL 1.25 MG/0.5 ML CONCENTRATE NEB NEB SCH ×4 (02:46→19:29)
[2020-01-05 04:46] LABS: BASO % 0.1 % (0.0-1.0); EOS # 0.3 10^3/uL (0.0-0.5); EOS % 2.9 % (0.0-3.0); HEMATOCRIT 31.6 % (42.0-52.0); HEMOGLOBIN 10.2 g/dl (13.5-17.5); LYMPH # 1.7 10^3/uL (1.5-5.0); LYMPH % 16.3 % (24.0-44.0); MEAN CORPUSCULAR HEMOGLOBIN 29.9 pg (27.0-33.0); MEAN CORPUSCULAR HGB CONC 32.3 g/dl (32.0-36.5); MEAN CORPUSCULAR VOLUME 92.7 fl (80.0-96.0); MONO # 0.6 10^3/uL (0.0-0.8); NEUTROPHILS # 7.7 10^3/uL (1.5-8.5); NEUTROPHILS % 74.3 % (36.0-66.0); PLATELET COUNT, AUTOMATED 253 10^3/uL (150-450); RED BLOOD COUNT 3.41 10^6/uL (4.30-6.10); WHITE BLOOD COUNT 10.3 10^3/uL (4.0-10.0)
[2020-01-05 05:06] LABS: BLOOD UREA NITROGEN 29 MG/DL (7-18); CALCIUM LEVEL 8.1 MG/DL (8.8-10.2); CARBON DIOXIDE LEVEL 31 MEQ/L (21-32); CHLORIDE LEVEL 105 MEQ/L (98-107); CREATININE FOR GFR 1.05 MG/DL (0.70-1.30); GLOMERULAR FILTRATION RATE > 60.0 (>42); GLUCOSE, FASTING 128 MG/DL (70-100); POTASSIUM SERUM 5.2 MEQ/L (3.5-5.1); SODIUM LEVEL 141 MEQ/L (136-145)
[2020-01-05] MEDS: LEVALBUTEROL 1.25 MG/0.5 ML CONCENTRATE NEB NEB PRN (08:03)
[2020-01-05 08:07] LABS: ABG BASE EXCESS -0.2 (-2.0-2.0); ABG HCO3 22.7 MEQ/L (22.0-26.0); ABG PARTIAL PRESSURE CO2 30.7 mmHg (35.0-45.0); ABG PARTIAL PRESSURE O2 108.8 mmHg (75.0-100.0); ABG STANDARD HCO3 24.3 MEQ/L (22.0-26.0); ABG TOTAL CO2 23.6 MEQ/L (23.0-31.0); ABG pH (ARTERIAL) 7.486 UNITS (7.350-7.450)
[2020-01-05] MEDS ORDERED: ISOVUE-370 76% 100ML VIAL (Q9967) As Ordered ONE (08:10)
--- NOTE | 2020-01-05 08:21 | REP ---
Portable chest x-ray: Single view. History: Chest tube. Comparison chest x-ray: January 04, 2020. Findings: There are two right-sided chest tubes noted in place unchanged. There is extensive extrathoracic soft tissue emphysema again noted. There is no discernible pneumothorax. Left lung remains essentially clear with a tiny zone of linear plate-like atelectasis at the left base. Surgical clips in the perihilar region and the medius postoperative mediastinal shift to the right post lobectomy. Impression: Findings essentially unchanged from previous day's radiograph. Electronically Signed by Shaquille Luevano MD 01/05/2020 08:13 A
[2020-01-05] MEDS: MOM 30ML SUSPENSION UDC PO SCH (09:00)
[2020-01-05] MEDS: DOCUSATE SODIUM 100 MG CAP PO SCH ×2 (09:19→20:33)
[2020-01-05] MEDS: lisinopriL 20 MG TAB PO SCH (09:19)
[2020-01-05] MEDS: atenoloL 50 MG TAB PO SCH (09:19)
[2020-01-05] MEDS: ATORVASTATIN 20 MG TAB PO SCH (09:19)
[2020-01-05] MEDS: PANTOPRAZOLE 40MG TAB (PROTONIX) PO SCH (09:20)
[2020-01-05] MEDS: HEPARIN SOD (PORCINE) 5000 UNITS/ML VIAL (J1644 PER 1000UNITS) SC SCH ×2 (09:20→20:33)
--- NOTE | 2020-01-05 09:52 | REP ---
CT PULMONARY ANGIOGRAM: With IV contrast. HISTORY: Question pulmonary embolus. Comparison is made with today's chest x-ray.. Comparison noncontrast chest CT study December 21, 2019. Contrast dose: 75 mL of Isovue [address] TECHNIQUE: Helical scanning is acquired and overlapping 1.5 mm and contiguous 3 mm axial images are reformatted. In addition, maximum intensity projection and multiplanar re-formation images are generated in sagittal and coronal imaging projections. CT PULMONARY ANGIOGRAPHIC FINDINGS: There is good opacification of the pulmonary arterial tree. There is no visible filling defect or vessel cutoff to suggest pulmonary embolism. Fairly heavy vascular calcification is noted in the aorta. Post thoracotomy partial pneumonectomy changes are noted along the right mediastinum. The patient is status post right upper and middle lobectomy. There is a ground-glass opacity pattern in the right lung base adjacent to some linear plate-like atelectasis. There are two right-sided chest tubes in place in the pleural space; one anterior and the other posterior. There are a few scattered bubbles of pleural air no significant pleural effusion. The left lung remains clear. The visualized upper abdominal structures are unremarkable. There are granulomatous calcifications in the spleen and in the left hilus. Fairly extensive extrathoracic subcutaneous emphysema is seen and there is some pneumomediastinum noted superiorly. IMPRESSION: No CT evidence of pulmonary embolism. Post thoracotomy partial pneumonectomy changes on the right. Small area of ground-glass opacity infiltrate in the right base adjacent discoid atelectasis and some pleural air. Pneumomediastinum and extrathoracic soft tissue emphysema. Unreviewed
--- NOTE | 2020-01-05 10:50 | IPN ---
DATE: 01/05/2020 Mr. Fairbanks had a stable night until this morning, when he became nearly unresponsive. His pupils were pinpoint but he was quite tachypneic and with bilateral wheezing. The patient was given Narcan as he had 33 mg of morphine overnight by the patient controlled analgesia (FILM WRITER) pump. He did arouse but was still short of breath, although he was not hypoxic. I therefore transported to [facility] for a CT angiography, which did not show a pulmonary embolism. When he finally got back from CT angiography he was no longer tachypneic and awake and alert. I am not sure exactly what was going on. It could have been a combination of the narcotic pain control along with bronchospasm. His vital signs show a maximum temperature (Tmax) of 97.7 with a heart rate that ranges between 75-86 and is sinus rhythm, respiratory rate that is constant at 18, except in the last 2 hours when it was up to 30. It is now back down to 20. He is 97-98% saturated on room air. He was placed on 2 liters nasal cannula although 2 during the episode. Blood pressure is ranging between 124/69-116/57. His intake and output for the past 24 hours has been recorded as 1500 in and 2005 out for a negativity of 500 mL. He has put out 365 mL from the chest tube, which continues to decrease. There is still a moderate air leak but much smaller than it has been through the anterior tube. He weighs 97.1 kilos compared to 97.9 kilos yesterday. On physical examination, during the episode he showed bilateral wheezing on the either side particularly on the right side. After the episode he had normal vesicular sounds with sounds of subcutaneous emphysema overlying on the right chest. Subcutaneous emphysema is less and barely palpable over the pectoral muscle. It can still be felt at the base of the neck. Percussion notes are full to the diaphragm with the right side being hyperresonant secondary to his subcutaneous emphysema. Cardiac exam is without murmurs, clicks, gallops or rubs. I cannot feel his point of maximal impulse (PMI). S1 and S2 are normal. Abdomen is soft, nontender. Bowel sounds are positive. There is no hepatomegaly. No costovertebral angle (CVA) tenderness. Extremities show no pretibial edema. No calf tenderness. No differential swelling of the upper extremities. Skin is warm, dry and perfused without cyanosis or mottling including that of the nail beds and the knees. Neck is supple. There is no jugular venous distention. No subcutaneous emphysema. Trachea is midline. Mouth shows his mucous membranes to be pink and moist. Lips and commissures are without lesions. There is no thrush. Eyes show his pupils to be equal, reactive. Extraocular motions are intact. Sclera nonicteric. Neurologic shows II-XII intact, along with gross motor and gross sensation intact. Gait is not tested. During the episode his right side did seem a bit more weak but that has completely recovered. Psychiatric shows him to be awake and alert, oriented times three with appropriate mood and affect, and now conversational. His white count today is 10.3 with hemoglobin and hematocrit of 10.2 and 31.6, increased from yesterday's of 9.6 and 30 secondary to hemoconcentration. Platelet count is 253 and stable, and differential shows 74% neutrophils, 16% lymphocytes, 6% monocytes. There are no immature forms, no toxic granulations. His chemistries show normal electrolytes with a marginally high potassium of 5.2. BUN and creatinine are 29 and 1.05 with a glucose of 128 and a calcium of 8.1. His chest x-ray shows his lung fully expanded to the chest wall with dissipating subcutaneous emphysema. Chest CT today shows the right lung fully expanded to the chest wall. He has massive subcutaneous emphysema, which I am surprised is all that palpable on physical examination. The anterior chest tube is next in place as is the posterior chest tube. There is no pneumothorax. CT angio does not show a pulmonary embolism. The right lower lobe arteries are indeed open. There is a mediastinal shift to right as seen on chest x-ray and on the CT. I do not see a pulmonary embolism either on the right side or the left side. There is no pericardial effusion. The only arteries open on the right side are the lower lobe arteries with his bilobectomy. IMPRESSION: 1. Post-op day #6 status post bilobectomy. 2. Adenocarcinoma of right upper lobe, stage IA2, [id number]. 3. Hypertension. 4. Coronary artery disease. 5. Status post transient ischemic attack (TIA) in June 2019. 6. Hypercholesterolemia. 7. Postoperative air leak improving. 8. Subcutaneous emphysema improving. 9. Probably bronchospasm and narcotic narcosis. PLAN AND DISCUSSION: I will discontinue the FILM WRITER pump. Will convert him to oral pain medications. I will continue his chest tube on suction. JIGNESH
[2020-01-05] MEDS: PERCOCET 5MG/325MG TAB PO PRN ×3 (11:17→21:34)
[2020-01-05] MEDS: MORPHINE 2 MG/ML 1ML VIAL (J2270) IV PRN (23:54)
[2020-01-06] VITALS (7 sets, daily range): BP systolic 106–132; BP diastolic 57–78
[2020-01-06] MEDS: PERCOCET 5MG/325MG TAB PO PRN ×5 (01:44→21:10)
[2020-01-06] MEDS: LEVALBUTEROL 1.25 MG/0.5 ML CONCENTRATE NEB NEB SCH ×4 (01:58→19:39)
[2020-01-06 07:42] LABS: BASO % 0.2 % (0.0-1.0); EOS # 0.4 10^3/uL (0.0-0.5); EOS % 4.1 % (0.0-3.0); HEMATOCRIT 29.4 % (42.0-52.0); HEMOGLOBIN 9.4 g/dl (13.5-17.5); LYMPH # 2.7 10^3/uL (1.5-5.0); LYMPH % 25.9 % (24.0-44.0); MEAN CORPUSCULAR HEMOGLOBIN 29.6 pg (27.0-33.0); MEAN CORPUSCULAR VOLUME 92.5 fl (80.0-96.0); MONO # 0.7 10^3/uL (0.0-0.8); MONO % 6.4 % (0.0-5.0); NEUTROPHILS # 6.5 10^3/uL (1.5-8.5); NEUTROPHILS % 62.8 % (36.0-66.0); PLATELET COUNT, AUTOMATED 299 10^3/uL (150-450); RED BLOOD COUNT 3.18 10^6/uL (4.30-6.10); WHITE BLOOD COUNT 10.4 10^3/uL (4.0-10.0)
[2020-01-06 07:59] LABS: BLOOD UREA NITROGEN 25 MG/DL (7-18); CALCIUM LEVEL 8.3 MG/DL (8.8-10.2); CARBON DIOXIDE LEVEL 30 MEQ/L (21-32); CHLORIDE LEVEL 106 MEQ/L (98-107); CREATININE FOR GFR 0.94 MG/DL (0.70-1.30); GLOMERULAR FILTRATION RATE > 60.0 (>42); GLUCOSE, FASTING 100 MG/DL (70-100); POTASSIUM SERUM 4.4 MEQ/L (3.5-5.1); SODIUM LEVEL 140 MEQ/L (136-145)
--- NOTE | 2020-01-06 08:25 | REP ---
Chest x-ray: Two views. History: Bi- lobectomy, right upper and middle lobe. Comparison chest x-ray: January 05, 2020. Findings: Monitoring electrodes are seen. Two right-sided chest tubes remain in place. Post thoracotomy volume loss in the right hemithorax is again seen. Left lung remains clear. Subcutaneous emphysema persists along the right chest and in the neck soft tissues bilaterally. Impression: No significant change from the previous day. Electronically Signed by Shaquille Luevano MD 01/06/2020 08:17 A
[2020-01-06] MEDS: lisinopriL 20 MG TAB PO SCH (09:00)
[2020-01-06] MEDS: MOM 30ML SUSPENSION UDC PO SCH (09:00)
[2020-01-06] MEDS: diphenhydrAMINE INJ 50MG/ML VIAL (J1200) IV PRN (09:11)
[2020-01-06] MEDS: HEPARIN SOD (PORCINE) 5000 UNITS/ML VIAL (J1644 PER 1000UNITS) SC SCH ×2 (09:11→20:11)
[2020-01-06] MEDS: ATORVASTATIN 20 MG TAB PO SCH (09:16)
[2020-01-06] MEDS: DOCUSATE SODIUM 100 MG CAP PO SCH ×2 (09:17→20:11)
[2020-01-06] MEDS: PANTOPRAZOLE 40MG TAB (PROTONIX) PO SCH (09:17)
[2020-01-06] MEDS: atenoloL 50 MG TAB PO SCH (09:19)
--- NOTE | 2020-01-06 09:58 | IPN ---
DATE: 01/06/2020 This is now the seventh postoperative day status post bilobectomy right upper, right middle lobes. Today, he is doing a lot better. His pain is fairly well controlled with oral medication. He did become confused last night with morphine that we discontinued morphine for even breakthrough pain. His vital signs show a maximum temperature (Tmax) of 98.1 with a heart rate that ranges between 80-68, in a sinus rhythm, respiratory rate that is constant at 18, who is 94% saturated on room air and whose blood pressure is ranging between 122/74-98/55. His intake and output for the past 24 hours has been recorded as 780 in and 1925 out for a negativity of 1145 mL. He has put out 215 mL from the chest tube, which continues to go down. His weight is 96.4 kilos compared to 97.1 kilos yesterday. On physical examination, I hear the crackles of subcutaneous emphysema on the lung exam on the right side. Be that I hear normal vesicular sounds. The left lung also shows normal vesicular sounds without wheezes, rhonchi or rales. Percussion notes are full to the diaphragm and hyperresonant on the right secondary to subcutaneous emphysema. The subcutaneous emphysema is still present in the right pectoral muscle. There is no subcutaneous emphysema down his arm. Cardiac exam is without murmurs, clicks, gallops or rubs. I cannot feel his point of maximal impulse (PMI). S1 and S2 are normal. Abdomen is soft, nontender. Bowel sounds are positive. There is no hepatomegaly. No costovertebral angle (CVA) tenderness. He has had a bowel movement. Extremities show no pretibial edema. No calf tenderness. No differential swelling of the upper extremities. Skin is warm, dry and perfused without cyanosis or mottling including that of the nail beds and the knees. Neck is supple. There is no jugular venous distention. There is subcutaneous emphysema at the very base. Trachea is midline. Mouth shows the mucous membranes to be pink and moist. Lips and commissures are without lesions. There is no thrush. Eyes show his pupils to be equal, reactive. Extraocular motions are intact. Sclera nonicteric. Neurologic shows II-XII intact, along with gross motor and gross sensation intact. Gait is not tested. Psychiatric shows him to be awake and alert, oriented times three with appropriate mood and affect, and conversational. His white count today is 10.4, unchanged from yesterday, with hemoglobin and hematocrit of 9.4 and 29.4, down from 10.2 and 31.6 yesterday. Platelet count is 299, and differential shows 62% neutrophils, 25% lymphocytes, 6% monocytes. There are no immature forms, no toxic granulations. His electrolytes are normal with a BUN and creatinine of 25 and 0.94, glucose of 100, and a calcium of 8.3. His chest x-ray today still shows subcutaneous emphysema which continues to dissipate. The lung is fully expanded to the chest wall. Chest tube is in good place. He still has an air leak, however it is much smaller than it has been. I have decreased his suction to minus 20. IMPRESSION: 1. Postoperative day #7 status post bilobectomy right upper and middle lobes. 2. Adenocarcinoma of right upper lobe, stage IA2, [id number]. 3. Hypertension. 4. Coronary artery disease. 5. Status post transient ischemic attack (TIA) June 2019. 6. Hypercholesterolemia. 7. Post-op air leak improving. 8. Subcutaneous emphysema improving. 9. Probably bronchospasm and narcotic narcosis, yesterday, improved. PLAN AND DISCUSSION: I will decrease his suction down to minus 20 on the anterior chest tube. We will discontinue all morphine. As he is spontaneously diuresing yesterday with a negative intake and output of minus 1145 and with decreasing chest tube output I will not diurese today.
[2020-01-07 00:06] VITALS: BP 116/56
[2020-01-07] MEDS: LEVALBUTEROL 1.25 MG/0.5 ML CONCENTRATE NEB NEB SCH ×4 (01:20→19:58)
[2020-01-07] MEDS: PERCOCET 5MG/325MG TAB PO PRN ×5 (01:24→22:03)
[2020-01-07 04:00] VITALS: BP 121/56
[2020-01-07 05:40] LABS: BASO % 0.2 % (0.0-1.0); EOS # 0.6 10^3/uL (0.0-0.5); EOS % 4.4 % (0.0-3.0); HEMATOCRIT 30.4 % (42.0-52.0); HEMOGLOBIN 9.8 g/dl (13.5-17.5); LYMPH # 3.4 10^3/uL (1.5-5.0); MEAN CORPUSCULAR HEMOGLOBIN 29.5 pg (27.0-33.0); MEAN CORPUSCULAR HGB CONC 32.2 g/dl (32.0-36.5); MEAN CORPUSCULAR VOLUME 91.6 fl (80.0-96.0); MONO % 7.7 % (0.0-5.0); NEUTROPHILS # 7.5 10^3/uL (1.5-8.5); NEUTROPHILS % 59.9 % (36.0-66.0); PLATELET COUNT, AUTOMATED 334 10^3/uL (150-450); RED BLOOD COUNT 3.32 10^6/uL (4.30-6.10); WHITE BLOOD COUNT 12.5 10^3/uL (4.0-10.0)
[2020-01-07 05:50] LABS: BLOOD UREA NITROGEN 19 MG/DL (7-18); CALCIUM LEVEL 8.4 MG/DL (8.8-10.2); CARBON DIOXIDE LEVEL 26 MEQ/L (21-32); CHLORIDE LEVEL 107 MEQ/L (98-107); CREATININE FOR GFR 1.04 MG/DL (0.70-1.30); GLOMERULAR FILTRATION RATE > 60.0 (>42); GLUCOSE, FASTING 93 MG/DL (70-100); POTASSIUM SERUM 4.4 MEQ/L (3.5-5.1); SODIUM LEVEL 138 MEQ/L (136-145)
[2020-01-07 07:38] VITALS: BP 149/71
--- NOTE | 2020-01-07 08:17 | REP ---
Chest x-ray: Two views. History: Status post a right upper lobe and right middle lobe resection. Comparison study January 06, 2020 and January 05, 2020. Findings: Two right chest tubes remain in place. There is no evidence of pneumothorax. There is fairly extensive although improved extrathoracic soft tissue emphysema. Left lung remains clear. Monitoring electrodes are again seen. No new infiltrate. No evidence of effusion. Electronically Signed by Shaquille Luevano MD 01/07/2020 08:09 A
[2020-01-07] MEDS: ATORVASTATIN 20 MG TAB PO SCH (08:18)
[2020-01-07] MEDS: HEPARIN SOD (PORCINE) 5000 UNITS/ML VIAL (J1644 PER 1000UNITS) SC SCH ×2 (08:19→22:02)
[2020-01-07] MEDS: PANTOPRAZOLE 40MG TAB (PROTONIX) PO SCH (08:19)
[2020-01-07] MEDS: atenoloL 50 MG TAB PO SCH (08:19)
[2020-01-07] MEDS: lisinopriL 20 MG TAB PO SCH (08:19)
[2020-01-07] MEDS: DOCUSATE SODIUM 100 MG CAP PO SCH ×2 (08:19→22:02)
[2020-01-07] MEDS: MOM 30ML SUSPENSION UDC PO SCH (08:20)
[2020-01-07 12:00] VITALS: BP 114/59
--- NOTE | 2020-01-07 14:28 | IPN ---
DATE: 01/07/2020 This is the 7th postoperative day for Mr. Fairbanks. He has a one-bubble air leak with forceful coughing, which is not reproducible. His pain is being fairly well controlled on oral analgesics. He is up and around and ambulating. His vital signs show a maximum temperature (T-max) of 98.7 with a heart rate that ranges between 69 and 77 in sinus rhythm. Respiratory rate of 18-20 without the use of accessory muscles, who is 97% saturated on room air. His blood pressures range between 149/71 to 114/59. His intake and output over the past 24 hours had been recorded as 980 in and 550 out for a positivity of 425 mL. He has put out 235 mL from the chest tube and there is the above described air leak. Weight today is 93.5 kg compared to 96.4 kg yesterday. On physical examination, I can still hear the sounds of subcutaneous emphysema over the right side but I hear entirely normal vesicular sounds without wheezes, rhonchi or rales. Subcutaneous emphysema over the pectoralis muscle continues to decrease. Cardiac exam is without murmurs, clicks or gallops or rubs. I cannot feel his point of maximum impulse (PMI). S1 and S2 are normal. Abdomen is soft and nontender. Bowel sounds are positive. There is no hepatomegaly. No costovertebral angle (CVA) tenderness. Extremities still show 1+ pretibial edema with no calf tenderness. No differential swelling of the upper extremities. Skin is warm, dry and perfused without cyanosis or mottling including that of the nail beds and knees. Neck is supple. There is no jugular venous distention. There is still some subcutaneous emphysema in the base of the neck. Trachea is midline. Mouth shows his mucous membranes to be pink and moist. Lips and commissures are without lesions. There is no thrush. Eyes show his pupils to be equal and reactive. Extraocular movements intact. Sclerae nonicteric. Neurologic shows II-XII intact along with gross motor and gross sensation intact. Gait is not tested. Psychiatric showed him to be awake, alert and oriented times three with appropriate and affect and conversational. His white count today is 12.5 up from 10.4 yesterday. Hemoglobin and hematocrit 89.8 and 30.4, essentially unchanged from yesterday. Platelet count is 334 and stable and differential shows 59% neutrophils, 27% lymphocytes, 7% monocytes. There are no immature forms or toxic granulations. His electrolytes are normal with a BUN and creatinine of 19 and 1.04 with a glucose of 93 and a calcium of 8.4. His chest x-ray today shows his lung fully expanded to the chest wall. Subcutaneous emphysema is dissipating. I see no infiltrates. IMPRESSION: 1. Postoperative day #7, status post bilobectomy, right upper and middle lobes. 2. Adenocarcinoma of the right upper lobe stage I A2, T1b, N0, M0. 3. Hypertension. 4. Hypertension. 5. Coronary artery disease. 6. Status post transient ischemic attack (TIA) in June 2019. 7. Hypercholesterolemia. 8. Postoperative air leak newly resolved. 9. Subcutaneous emphysema improving. 10. Pleural bronchospasm and narcotic narcosis, resolved. PLAN AND DISCUSSION: I will discontinue the chest tube suction today. I will get a hold of diuresing him as his weight is down. I am hoping to either discontinue chest tubes tomorrow or clamp them for 1 day. He did have a very large air leak immediately postoperatively for the first 4 days.
[2020-01-07 16:00] VITALS: BP 121/60
--- NOTE | 2020-01-07 18:02 | ECGEPIP ---
[facility] Test Date: 2020-01-05 Pat Name: EDIE JAMES Department: Room: [place] [address] Gender: Male Help Desk Consultant: SEEMA : 1945 Requested By: Russell Colin Order Number: [id number] Reading MD: Phil Birmingham Measurements Intervals [place] Rate: 84 P: 34 CA: 167 QRS: -10 QRSD: 100 T: -4 QT: 342 QTc: 406 Interpretive Statements SINUS RHYTHM Borderline left axis deviation Nonspecific intraventricular conduction delay Non specific ST/T abnormality Compared to prior tracings in the system, 01/02/20 No remarkable changes Electronically Signed on 01-07-2020 18:02:25 EDT by Phil Birmingham
[2020-01-07 20:00] VITALS: BP 146/70
[2020-01-08] VITALS: BP 139/66
[2020-01-08] MEDS: LEVALBUTEROL 1.25 MG/0.5 ML CONCENTRATE NEB NEB SCH ×4 (01:16→19:24)
[2020-01-08] MEDS: PERCOCET 5MG/325MG TAB PO PRN ×5 (02:03→21:08)
[2020-01-08 04:00] VITALS: BP 107/59
[2020-01-08 04:56] LABS: BASO % 0.1 % (0.0-1.0); EOS # 0.6 10^3/uL (0.0-0.5); EOS % 3.9 % (0.0-3.0); HEMATOCRIT 27.9 % (42.0-52.0); HEMOGLOBIN 9.3 g/dl (13.5-17.5); LYMPH # 2.8 10^3/uL (1.5-5.0); LYMPH % 18.1 % (24.0-44.0); MEAN CORPUSCULAR HEMOGLOBIN 30.2 pg (27.0-33.0); MEAN CORPUSCULAR HGB CONC 33.3 g/dl (32.0-36.5); MEAN CORPUSCULAR VOLUME 90.6 fl (80.0-96.0); MONO # 1.2 10^3/uL (0.0-0.8); NEUTROPHILS # 10.6 10^3/uL (1.5-8.5); NEUTROPHILS % 69.1 % (36.0-66.0); PLATELET COUNT, AUTOMATED 326 10^3/uL (150-450); RED BLOOD COUNT 3.08 10^6/uL (4.30-6.10); WHITE BLOOD COUNT 15.3 10^3/uL (4.0-10.0)
[2020-01-08 05:19] LABS: BLOOD UREA NITROGEN 21 MG/DL (7-18); CALCIUM LEVEL 8.1 MG/DL (8.8-10.2); CARBON DIOXIDE LEVEL 26 MEQ/L (21-32); CHLORIDE LEVEL 106 MEQ/L (98-107); CREATININE FOR GFR 0.97 MG/DL (0.70-1.30); GLOMERULAR FILTRATION RATE > 60.0 (>42); GLUCOSE, FASTING 127 MG/DL (70-100); POTASSIUM SERUM 4.2 MEQ/L (3.5-5.1); SODIUM LEVEL 137 MEQ/L (136-145)
--- NOTE | 2020-01-08 07:58 | REP ---
Chest x-ray: Two views. History: By lobectomy on the right. Comparison study: January 07, 2020. Findings: Two right chest tubes remain in place. There is a tiny sliver of apical pleural air on the right today. Extrathoracic soft tissue emphysema is seen gradually decreasing. No new pulmonary parenchymal opacity. Electronically Signed by Shaquille Luevano MD 01/08/2020 07:50 A
[2020-01-08 08:00] VITALS: BP 129/62
[2020-01-08] MEDS: MOM 30ML SUSPENSION UDC PO SCH (08:16)
[2020-01-08] MEDS: DOCUSATE SODIUM 100 MG CAP PO SCH ×2 (08:17→21:08)
[2020-01-08] MEDS: HEPARIN SOD (PORCINE) 5000 UNITS/ML VIAL (J1644 PER 1000UNITS) SC SCH ×2 (08:17→21:08)
[2020-01-08] MEDS: ATORVASTATIN 20 MG TAB PO SCH (08:17)
[2020-01-08] MEDS: PANTOPRAZOLE 40MG TAB (PROTONIX) PO SCH (08:17)
[2020-01-08] MEDS: atenoloL 50 MG TAB PO SCH (08:17)
[2020-01-08] MEDS: lisinopriL 20 MG TAB PO SCH (08:18)
[2020-01-08] MEDS ORDERED: FUROSEMIDE 40 MG/4 ML VIAL (J1940) IV ONE (11:00)
--- NOTE | 2020-01-08 11:52 | IPN ---
DATE: 01/08/2020 This is now the eight postoperative day for Mr. Fairbanks. He still has a one-bubble air leak from the anterior tube. His pain is being well controlled with oral analgesics. I am very grateful for that. His vital signs show a maximum temperature (Tmax) of 98.3 with a heart rate that ranges between 80-66 in a sinus rhythm, respiratory rate of 16-20 without the use of accessory muscles, who is 96% saturated on room air and whose blood pressure is ranging between 129/62-107/59. His intake and output for the past 24 hours had been recorded as 1280 in and 1060 out for a positivity of 220 mL. He has put out 115 mL from the anterior chest tube and 145 mL from the posterior chest tube. His weight today is 93.5 kilos, which is the same as yesterday. On physical examination, his subcutaneous emphysema is all but disappeared from the anterior chest wall on the right. His lungs show normal vesicular sounds beneath subcutaneous emphysema that I can hear posteriorly when pressing the stethoscope against the chest wall. Percussion notes are full to the diaphragm. Cardiac exam is without murmurs, clicks or gallops or rubs. I cannot feel his point of maximum impulse (PMI). S1 and S2 are normal. Abdomen is soft, nontender. Bowel sounds are positive. There is no hepatomegaly. No costovertebral angle (CVA) tenderness. Extremities show no pretibial edema with no calf tenderness. No differential swelling of the upper extremities. Skin is warm, dry and perfused without cyanosis or mottling, including that of the nail beds and knees. Neck is supple. There is no jugular venous distention. No subcutaneous emphysema. Trachea is midline. Mouth shows the mucous membranes to be pink and moist. Lips and commissures are without lesions. There is no thrush. Eyes show his pupils to be equal and reactive. Extraocular movements intact. Sclerae nonicteric. Neurologic shows II-XII intact along with gross motor and gross sensation intact. Gait is not tested. Psychiatric shows him to be awake, alert and oriented times three with appropriate and affect and conversational. His chest x-ray today shows the subcutaneous emphysema continuing dissipate. There is a small apical pneumothorax maybe 1 mm. Chest tubes are in good place. There is the mediastinal shift from the obligate volume loss of bilobectomy. His white count today is 15.3 with a hemoglobin and hematocrit of 9.3 and 27.9 respectively. Platelet count is 326 and stable, and differential shows 69% neutrophils, 18% lymphocytes, 8% monocytes. There are no immature forms. No toxic granulations. His electrolytes are normal with a BUN and creatinine of 21 and 0.97 with a glucose of 127 and a calcium of 8.1. IMPRESSION: 1. Stage I A2, [id number] adenocarcinoma of the right upper lobe. 2. Postoperative day #8 status post bilobectomy right upper and middle lobes. 3. Hypertension. 4. Hypertension. 5. Coronary artery disease. 6. Status post transient ischemic attack (TIA) in June 2019. 7. Hypercholesterolemia. 8. Postoperative air leak nearly resolved. 9. Subcutaneous emphysema improving. PLAN AND DISCUSSION: I will remove his posterior chest tube today. I was going to clamp his anterior chest tube, however, after pulling the posterior chest tube he sucked some air in. I will therefore keep him on water seal.. I will diurese him with 40 of Lasix today. JIGNESH
[2020-01-08 12:00] VITALS: BP 145/65
[2020-01-08 16:00] VITALS: BP 127/61
[2020-01-08 20:00] VITALS: BP 110/54
[2020-01-08] MEDS: diphenhydrAMINE INJ 50MG/ML VIAL (J1200) IV PRN (21:08)
[2020-01-09] VITALS: BP 134/64
[2020-01-09] MEDS: diphenhydrAMINE INJ 50MG/ML VIAL (J1200) IV PRN (01:17)
[2020-01-09] MEDS: PERCOCET 5MG/325MG TAB PO PRN ×4 (01:18→20:27)
[2020-01-09] MEDS: LEVALBUTEROL 1.25 MG/0.5 ML CONCENTRATE NEB NEB SCH ×4 (01:21→18:28)
[2020-01-09 04:00] VITALS: BP 135/63
[2020-01-09 04:53] LABS: BASO # 0.1 10^3/uL (0.0-0.2); BASO % 0.4 % (0.0-1.0); EOS # 0.8 10^3/uL (0.0-0.5); EOS % 5.8 % (0.0-3.0); HEMATOCRIT 29.1 % (42.0-52.0); HEMOGLOBIN 9.6 g/dl (13.5-17.5); LYMPH # 3.3 10^3/uL (1.5-5.0); LYMPH % 25.4 % (24.0-44.0); MEAN CORPUSCULAR HEMOGLOBIN 30.2 pg (27.0-33.0); MEAN CORPUSCULAR VOLUME 91.5 fl (80.0-96.0); MONO % 7.5 % (0.0-5.0); NEUTROPHILS # 7.8 10^3/uL (1.5-8.5); PLATELET COUNT, AUTOMATED 356 10^3/uL (150-450); RED BLOOD COUNT 3.18 10^6/uL (4.30-6.10); WHITE BLOOD COUNT 12.9 10^3/uL (4.0-10.0)
[2020-01-09 05:16] LABS: BLOOD UREA NITROGEN 22 MG/DL (7-18); CARBON DIOXIDE LEVEL 29 MEQ/L (21-32); CHLORIDE LEVEL 105 MEQ/L (98-107); CREATININE FOR GFR 1.04 MG/DL (0.70-1.30); GLOMERULAR FILTRATION RATE > 60.0 (>42); GLUCOSE, FASTING 108 MG/DL (70-100); POTASSIUM SERUM 4.3 MEQ/L (3.5-5.1); SODIUM LEVEL 136 MEQ/L (136-145)
[2020-01-09 08:00] VITALS: BP 142/62
[2020-01-09] MEDS: lisinopriL 20 MG TAB PO SCH (08:45)
[2020-01-09] MEDS: DOCUSATE SODIUM 100 MG CAP PO SCH ×2 (08:45→20:25)
[2020-01-09] MEDS: HEPARIN SOD (PORCINE) 5000 UNITS/ML VIAL (J1644 PER 1000UNITS) SC SCH ×2 (08:46→20:25)
[2020-01-09] MEDS: PANTOPRAZOLE 40MG TAB (PROTONIX) PO SCH (08:46)
[2020-01-09] MEDS: atenoloL 50 MG TAB PO SCH (08:46)
[2020-01-09] MEDS: MOM 30ML SUSPENSION UDC PO SCH (08:46)
[2020-01-09] MEDS: ATORVASTATIN 20 MG TAB PO SCH (08:46)
--- NOTE | 2020-01-09 08:59 | REP ---
Clinical: Status post right upper lobe and right middle lobe lobectomy. Technique: PA and lateral. Comparison: 01/08/2020. Findings: Single right apical chest tube is identified on current examination. Postsurgical pleuroparenchymal changes involving the right hemithorax including subcutaneous emphysema remain essentially stable. Small residual right apical pneumothorax again noted. Left hemithorax is stable / clear. Mediastinum and cardiac silhouette unchanged. No new acute process identified. Impression: 1. Single right apical chest tube now identified. 2. Stable postsurgical/ pleuroparenchymal changes. 3. No new acute process identified. Electronically Signed by Matthew Whiteside MD 01/09/2020 08:51 A
[2020-01-09] MEDS ORDERED: KETOROLAC 30 MG/ML VIAL (J1885) As Ordered ONE (11:10)
[2020-01-09] MEDS ORDERED: FUROSEMIDE 40 MG/4 ML VIAL (J1940) IV ONE (11:30)
[2020-01-09] MEDS: KETOROLAC 30 MG/ML VIAL (J1885) IV SCH ×2 (11:38→16:50)
[2020-01-09 12:00] VITALS: BP 146/59
--- NOTE | 2020-01-09 12:01 | IPN ---
DATE: 01/09/2020 This is now the 9th postoperative day for Mr. Fairbanks, status post his bilobectomy. He is complaining of increased shoulder pain. We are treating that now with heating pads and with Toradol along with Percocet. He has a one bubble air leak with forceful cough. His vital signs show a maximum temperature (T max) of 99.2 with a heart rate that ranges between 75 and 80 and is sinus rhythm, a respiratory rate that is constant at 20, who is 96% saturated on room air, and whose blood pressure is ranging between 142/62 to 135/63. His intake and output over the past 24 hours has been recorded as 1556 in and 1325 out for a positivity of 234 mL. He has put out 150 mL from the anterior chest tube. His weight today is 93.1 kg compared to 93.5 kg yesterday. He has put out 1125 mL in urine. On physical examination, he still has subcutaneous emphysema over the pectoralis muscle and at the base of the neck, but it is much less than it has been. His lungs show normal vesicular sounds underneath the crackles of subcutaneous emphysema, which are only elicited by pressing the stethoscope against the chest wall. Percussion notes are full to the diaphragm. Cardiac: Cardiac exam is without murmurs, clicks, gallops, or rubs. I cannot feel is point of maximum impulse (PMI). S1, S2 are normal. Abdomen is soft and nontender. Bowel sounds are positive. There is no hepatomegaly. No costovertebral angle tenderness. Extremities show no pretibial edema. No calf tenderness. No differential swelling of the upper extremities. Skin is warm, dry and perfused without cyanosis or mottling, including that of the nail beds and the knees. Neck is supple. There is no jugular venous distention, no subcutaneous emphysema. Trachea is midline. Mouth shows his mucous membranes to be pink and moist. Lips and commissures without lesions. There is no thrush. Eyes show his pupils to be equal and reactive. Extraocular motions intact. Sclerae nonicteric. Neurologic shows II-XII intact along with gross motor and gross sensation intact. Gait is not tested. Psychiatric shows him to be awake and alert, oriented times three with appropriate mood and affect and conversational. Chest x-ray today shows his lung fully expanded to the chest wall. There is no air space. Subcutaneous emphysema continues to dissipate. The trachea is not as deviated as it has been in the past. Costophrenic angle are sharp. Chest tube is in good place anteriorly. Posterior chest tube was removed yesterday. His white count today is 12.9 down from 15.3 yesterday. Hemoglobin and hematocrit are 9.6 and 29.1 up from 9.3 and 27.9 yesterday. Platelet count is 356 and stable and differential shows 60% neutrophils, 25% lymphocytes, 7% monocytes. There are no immature forms. No toxic granulations. Chemistries show normal electrolytes with a BUN and creatinine of 22 and 1.04, a glucose of 108, and a calcium of 8.0. IMPRESSION: 1. 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 2. Postoperative day #9 status post bilobectomy right upper and middle lobes. 3. Hypertension. 4. Coronary artery disease. 5. Status post transient ischemic attack (TIA) June 2019. 6. Hypercholesterolemia. 7. Postoperative air leak, hopefully resolved. PLAN AND DISCUSSION: I will continue to diurese him today. Today I will clamp his chest tube. If the chest tube is satisfactory tomorrow, I will remove the chest tube and plan for discharge the next day.
[2020-01-09] MEDS ORDERED: diphenhydrAMINE INJ 50MG/ML VIAL (J1200) IV PRN (12:15)
[2020-01-09] MEDS ORDERED: ONDANSETRON 4 MG TAB (S0181) PO PRN (12:15)
[2020-01-09 16:02] VITALS: BP 106/57
[2020-01-09 20:00] VITALS: BP 120/58
[2020-01-10] VITALS: BP 122/56
[2020-01-10] MEDS: KETOROLAC 30 MG/ML VIAL (J1885) IV SCH ×5 (00:11→22:48)
[2020-01-10] MEDS: LEVALBUTEROL 1.25 MG/0.5 ML CONCENTRATE NEB NEB SCH ×4 (00:22→18:19)
[2020-01-10 04:00] VITALS: BP 153/69
[2020-01-10 04:39] LABS: BASO # 0.1 10^3/uL (0.0-0.2); BASO % 0.4 % (0.0-1.0); EOS % 7.8 % (0.0-3.0); HEMATOCRIT 28.3 % (42.0-52.0); HEMOGLOBIN 9.2 g/dl (13.5-17.5); LYMPH # 3.4 10^3/uL (1.5-5.0); LYMPH % 25.5 % (24.0-44.0); MEAN CORPUSCULAR HGB CONC 32.5 g/dl (32.0-36.5); MEAN CORPUSCULAR VOLUME 92.2 fl (80.0-96.0); MONO # 0.9 10^3/uL (0.0-0.8); MONO % 6.9 % (0.0-5.0); NEUTROPHILS # 7.7 10^3/uL (1.5-8.5); NEUTROPHILS % 58.7 % (36.0-66.0); PLATELET COUNT, AUTOMATED 366 10^3/uL (150-450); RED BLOOD COUNT 3.07 10^6/uL (4.30-6.10); WHITE BLOOD COUNT 13.2 10^3/uL (4.0-10.0)
[2020-01-10 05:00] LABS: CALCIUM LEVEL 8.8 MG/DL (8.8-10.2); CREATININE FOR GFR 1.27 MG/DL (0.70-1.30); GLOMERULAR FILTRATION RATE 59.2 (>42); POTASSIUM SERUM 4.2 MEQ/L (3.5-5.1)
[2020-01-10 07:34] VITALS: BP 115/56
[2020-01-10] MEDS: HEPARIN SOD (PORCINE) 5000 UNITS/ML VIAL (J1644 PER 1000UNITS) SC SCH ×2 (07:57→20:16)
[2020-01-10] MEDS: MOM 30ML SUSPENSION UDC PO SCH (07:57)
[2020-01-10] MEDS: atenoloL 50 MG TAB PO SCH (07:58)
[2020-01-10] MEDS: DOCUSATE SODIUM 100 MG CAP PO SCH ×2 (07:58→20:16)
[2020-01-10] MEDS: ATORVASTATIN 20 MG TAB PO SCH (07:58)
[2020-01-10] MEDS: PANTOPRAZOLE 40MG TAB (PROTONIX) PO SCH (07:58)
[2020-01-10] MEDS: PERCOCET 5MG/325MG TAB PO PRN ×2 (08:01→17:27)
[2020-01-10] MEDS: lisinopriL 20 MG TAB PO SCH (08:01)
--- NOTE | 2020-01-10 08:27 | REP ---
Clinical: Status post right upper lobe/right middle lobe lobectomy. Technique: PA and lateral. Comparison: 01/09/2020. Findings: Postsurgical changes involving the right hemithorax including very small right apical pneumothorax and diffuse subcutaneous emphysema remain essentially unchanged. Left hemithorax is stable. No new acute process identified. Mediastinum and cardiac silhouette are stable and within normal limits. Impression: Stable postsurgical pleuroparenchymal changes. No new acute process identified. Electronically Signed by Matthew Whiteside MD 01/10/2020 08:19 A
[2020-01-10] MEDS ORDERED: LIDOCAINE 1% MDV 20ML VIAL As Ordered ONE (11:56)
--- NOTE | 2020-01-10 12:33 | REP ---
Clinical: Status post lobectomy and chest tube removal. Technique: PA and lateral. Comparison: 01/10/2020 at 07:43 a.m. Findings: Previous right-sided chest tube removed. Right-sided pleuroparenchymal changes including small right pneumothorax and right-sided subcutaneous emphysema remain essentially unchanged. Left hemithorax is stable / clear. No new acute process identified. The cardiac silhouette is within normal limits and stable. Skeletal structures intact. Impression: 1. Right chest tube removed. 2. Stable right-sided pleuroparenchymal changes including small pneumothorax and moderate subcutaneous emphysema. Electronically Signed by Matthew Whiteside MD 01/10/2020 12:24 P
--- NOTE | 2020-01-10 12:47 | IPN ---
DATE: 01/10/2020 This is now the 9th postoperative day for Mr. Fairbanks. His chest tube has been clamped for 24 hours, and his chest-x-ray shows his lung fully expanded to the chest wall with subcutaneous emphysema continuing to dissipate. He is feeling well, and his pain is being well controlled. His vital signs show a maximum temperature (T max) of 98.7 with a heart rate that ranges between 79 and 73 and is sinus rhythm, respiratory rate of 18 to 20 without the use of accessory muscles, who is 93 to 94% saturated on room air and whose blood pressure is ranging between 153/69 to 115/56. His intake and output over the past 24 hours has been recorded as 1430 in and 1715 out. His chest tube has been clamped. Upon clamping the chest tube, approximately 20 mL came out of the chest tube and there was no air leak. Weight today is 92.1 kg compared to 93.1 kg yesterday. On physical examination, after removal of the chest tube, there were increased rhonchus sounds consistent with inhalation of air through his chest tube hole. I, therefore, placed a U stitch in the chest tube site and sent him down for a chest x-ray. Left lung showed normal vesicular sounds. Percussion notes were full to the diaphragm. Cardiac exam is without murmurs, clicks, gallops or rubs. I cannot feel his point of maximum impulse (PMI). S1, S2 are normal. Abdomen is soft and nontender. Bowel sounds are positive. There is no hepatomegaly. No costovertebral angle tenderness. Extremities show no pretibial edema. No calf tenderness. No differential swelling of the upper extremities. Skin is warm, dry and perfused without cyanosis or mottling, including that of the nail beds and the knees. Neck is supple. There is no jugular venous distention, no subcutaneous emphysema. Trachea is midline. Mouth shows his mucous membranes to be pink and moist. Lips and commissures without lesions. There is no thrush. Eyes show his pupils to be equal and reactive. Extraocular motions intact. Sclerae anicteric. Neurologic shows II-XII intact along with gross motor and gross sensation intact. Gait is not tested. Psychiatric shows him to be awake and alert, oriented times three with appropriate mood and affect and conversational. His white count today is 13.2, slightly up from 12.9 yesterday. Hemoglobin and hematocrit are 9.2 and 28.3, slightly down from 9.6 and 29.1 yesterday. Platelet count is 366 and stable and differential shows 58% neutrophils, 25% lymphocytes, 9% monocytes. There are no immature forms. No toxic granulations. His electrolytes are normal with a BUN and creatinine of 28 and 1.27 with a glucose of 104 and a calcium of 8.8. Chest x-ray is discussed above. It shows his lungs fully expanded to the chest wall with dissipating subcutaneous emphysema. There looks to be on the PA view a straight line, but I do not see fluid to suggest that this is an air fluid level. It might be a skin fold. IMPRESSION: 1. Postoperative day #9, status post bilobectomy, right upper and right middle lobes. 2. Stage 1A2, [id number] adenocarcinoma of the right upper lobe. 3. Hypertension. 4. Coronary artery disease. 5. Status post transient ischemic attack (TIA) June 2019. 6. Hypercholesterolemia. 7. Postoperative air leak, resolved. PLAN AND DISCUSSION: As noted above, as I took the chest tubes out and covered it with dressing, I could still hear air seeping in through the chest tube wound. I, therefore, placed a U stitch, and he is going down for a chest x-ray now. That will be my baseline for tomorrow.
[2020-01-10 13:50] VITALS: BP 132/65
[2020-01-10 16:24] VITALS: BP 128/67
[2020-01-10 20:00] VITALS: BP 127/62
[2020-01-11] VITALS: BP 135/60
[2020-01-11] MEDS: LEVALBUTEROL 1.25 MG/0.5 ML CONCENTRATE NEB NEB SCH ×2 (01:48→07:47)
[2020-01-11 04:00] VITALS: BP 123/65
[2020-01-11] MEDS: KETOROLAC 30 MG/ML VIAL (J1885) IV SCH (04:24)
[2020-01-11 04:27] LABS: BASO # 0.1 10^3/uL (0.0-0.2); BASO % 0.3 % (0.0-1.0); EOS # 1.1 10^3/uL (0.0-0.5); EOS % 5.9 % (0.0-3.0); HEMATOCRIT 27.7 % (42.0-52.0); HEMOGLOBIN 9.1 g/dl (13.5-17.5); LYMPH # 2.6 10^3/uL (1.5-5.0); LYMPH % 14.2 % (24.0-44.0); MEAN CORPUSCULAR HGB CONC 32.9 g/dl (32.0-36.5); MEAN CORPUSCULAR VOLUME 91.4 fl (80.0-96.0); MONO # 1.1 10^3/uL (0.0-0.8); MONO % 5.9 % (0.0-5.0); NEUTROPHILS # 13.4 10^3/uL (1.5-8.5); NEUTROPHILS % 73.2 % (36.0-66.0); PLATELET COUNT, AUTOMATED 405 10^3/uL (150-450); RED BLOOD COUNT 3.03 10^6/uL (4.30-6.10); WHITE BLOOD COUNT 18.2 10^3/uL (4.0-10.0)
[2020-01-11 04:56] LABS: BLOOD UREA NITROGEN 30 MG/DL (7-18); CALCIUM LEVEL 7.9 MG/DL (8.8-10.2); CARBON DIOXIDE LEVEL 28 MEQ/L (21-32); CHLORIDE LEVEL 106 MEQ/L (98-107); CREATININE FOR GFR 1.08 MG/DL (0.70-1.30); GLOMERULAR FILTRATION RATE > 60.0 (>42); GLUCOSE, FASTING 116 MG/DL (70-100); POTASSIUM SERUM 4.6 MEQ/L (3.5-5.1); SODIUM LEVEL 138 MEQ/L (136-145)
[2020-01-11 07:07] VITALS: BP 116/56
[2020-01-11] MEDS: lisinopriL 20 MG TAB PO SCH (07:42)
[2020-01-11] MEDS ORDERED: FUROSEMIDE 40 MG/4 ML VIAL (J1940) IV ONE (08:00)
[2020-01-11] MEDS: MOM 30ML SUSPENSION UDC PO SCH (08:31)
[2020-01-11] MEDS: HEPARIN SOD (PORCINE) 5000 UNITS/ML VIAL (J1644 PER 1000UNITS) SC SCH (08:31)
[2020-01-11 08:32] VITALS: BP 116/56
[2020-01-11] MEDS: DOCUSATE SODIUM 100 MG CAP PO SCH (08:32)
[2020-01-11] MEDS: atenoloL 50 MG TAB PO SCH (08:32)
[2020-01-11] MEDS: PANTOPRAZOLE 40MG TAB (PROTONIX) PO SCH (08:32)
[2020-01-11] MEDS: ATORVASTATIN 20 MG TAB PO SCH (08:32)
--- NOTE | 2020-01-11 08:38 | REP ---
Clinical: Status post right upper lobe and right middle lobe lobectomy. Technique: PA and lateral. Comparison: 01/10/2020. Findings: Right pleural effusion with air-fluid level is now identified at the level of the mid/upper thorax. Underlying postsurgical pleuroparenchymal changes involving the right hemithorax along with subcutaneous emphysema remain essentially unchanged. Left hemithorax is relatively clear. Skeletal structures stable. Cardiac silhouette normal. Impression: 1. Moderate right hydropneumothorax suggested with air-fluid level now identified at the level of the mid/upper third of the thorax. 2. Otherwise no significant change. Electronically Signed by Matthew Whiteside MD 01/11/2020 08:30 A
[2020-01-11] MEDS ORDERED: LASI40TA9 PO (09:00)
[2020-01-11] MEDS ORDERED: PERCOCET PO (11:51)
[2020-01-11] MEDS: PERCOCET 5MG/325MG TAB PO PRN (12:28)
--- NOTE | 2020-01-11 13:24 | DSES ---
DATE OF ADMISSION: 12/30/2019 DATE OF DISCHARGE: 01/11/2020 DISCHARGE DIAGNOSES: 1. Stage I A2, [id number] adenocarcinoma of the right upper lobe. 2. Postoperative day #10 status post bilobectomy, right upper and middle lobes. 3. Hypertension. 4. Coronary artery disease. 5. Status post transient ischemic attack in 2019. 6. Hypercholesterolemia. 7. Postoperative air leak, resolved. 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 He was transferred to [facility] where he underwent thrombolysis and extensive workup for the origin of his stroke. Nothing was found anatomically, but part of the work was a CT angio of the chest, where he was found to have a spiculated lesion in the right upper lobe. Had he not undergone the CT scan he would not realize that there was something brewing in his chest and he was asymptomatic. Preoperative pulmonary function test showed an FEV1 of 2.4 liters, which is 71% of predicted with a diffusion capacity that was 91% of predicted. As he wanted to take a vacation in [place], he postponed his procedure until earlier this month when on 12/30/2019 he underwent a right upper and middle lobectomy. Notable findings of that operation was that there was no anatomic fissure. Furthermore, when I tried to demarcate the middle lobe distribution from the upper lobe distribution, the right upper lobe bronchus was clamped and upon reinflating the lung it was noted that the right upper lobe again reinflated. He evidently had collateral bronchial circulation from the middle lobe and there was no anatomic separation from the upper and middle lobes. Therefore, a bilobectomy was undertaken. The patient had a benign postoperative course except for a very large air leak at first, which gradually subsided over the period of 8 days. Because of the initial large air leak, the chest tube, instead of being removed immediately upon cessation of the leak, was clamped for 24 hours with the lung remaining expanded to the chest wall. Pain control is adequate at the time of discharge being on two Percocet tablets every 12 hours. The epidural was inadequate at about 4 days and he was transitioned over to a MANAGER BEVERAGE pump. During that time, after 2 days on the MANAGER BEVERAGE pump, he became disoriented and it was therefore discontinued after giving Narcan. He was then placed on Percocet and Toradol, which gave him adequate pain control. He is being discharged today on his home medications consisting of: - aspirin 81 mg daily - atenolol 50 mg daily - atorvastatin 80 mg daily - Lisinopril 20 mg daily - Stiolto Respimat two inhalations daily He is also being sent home on: - Lasix 40 mg daily for 10 days - Percocet one to two tablets every 6 hours as needed for pain His discharge chest x-ray shows what looks to be an air fluid level in the right lung with dissipating subcutaneous emphysema. The lung is fully expanded to the chest wall. It was noted that he sucked some air in during the chest tube removal where a U stitch had to be placed on the chest tube site. I do not see a pneumothorax on the discharge chest x-ray. I will see him back in the office in 1 week with a chest x-ray and postoperative followup. His discharge laboratories show a white count of 18.2 with a platelet count of 405 and hemoglobin and hematocrit of 9.1 and 27.7. His discharge chemistries showed normal electrolytes with BUN and creatinine of 30 and 1.08. edited: 01/12/2020 0713 cameron EGAN
[2021-01-09] MEDS ORDERED: LIDOCAINE 1% MDV 20ML VIAL SC ONE (12:00)
== END 2020-01-11 12:39 | disposition home or self-care (01) | DRG 164 ==
LOC: M OR 06:36 → M ICU 18:45
PROVIDERS: ADMIT Thoracic Surgery (Cardiothoracic Vascular Surgery); ATTEND Thoracic Surgery (Cardiothoracic Vascular Surgery)
PROC: 0BBD0ZZ Excision of Right Middle Lung Lobe, Open Approach (ICD-10-PCS; 2019-12-30)
PROC: 07B70ZX Excision of Thorax Lymphatic, Open Approach, Diagnostic (ICD-10-PCS; 2019-12-30)
PROC: 0BJ08ZZ Inspection of Tracheobronchial Tree, Via Natural or Artificial Opening Endoscopic (ICD-10-PCS; 2019-12-30)
PROC: 0BBC0ZZ Excision of Right Upper Lung Lobe, Open Approach (ICD-10-PCS; principal; 2019-12-30 08:30)
DX: C34.11 Malignant neoplasm of upper lobe, right bronchus or lung (principal); J95.812 Postprocedural air leak; J44.9 Chronic obstructive pulmonary disease, unspecified; I10 Essential (primary) hypertension; I25.10 Atherosclerotic heart disease of native coronary artery without angina pectoris; E78.00 Pure hypercholesterolemia, unspecified; J98.01 Acute bronchospasm; R06.89 Other abnormalities of breathing; T40.2X5A Adverse effect of other opioids, initial encounter; I69.398 Other sequelae of cerebral infarction; H53.8 Other visual disturbances; T81.82XA Emphysema (subcutaneous) resulting from a procedure, initial encounter; Y83.6 Removal of other organ (partial) (total) as the cause of abnormal reaction of the patient, or of later complication, without mention of misadventure at the time of the procedure; Z79.82 Long term (current) use of aspirin; Z79.899 Other long term (current) drug therapy; Z87.891 Personal history of nicotine dependence

== ENCOUNTER → 2020-01-14 | Outpatient (REF) | payer MEDICARE ==
[~2020-01-14] MED LIST changes: +LASI40TA9 PO; -LR 1,000 ML IV ONE; -MUPIROCIN 2% OINT 22 GM TUBE TOP ONE; +PERCOCET PO; -ceFAZolin SOD 2 GM in IV 1 EA IV ONE
[2020-01-14 09:50] LABS: HEMATOCRIT 32.4 % (42.0-52.0); HEMOGLOBIN 10.4 g/dl (13.5-17.5); MEAN CORPUSCULAR HEMOGLOBIN 29.7 pg (27.0-33.0); MEAN CORPUSCULAR HGB CONC 32.1 g/dl (32.0-36.5); MEAN CORPUSCULAR VOLUME 92.6 fl (80.0-96.0); PLATELET COUNT, AUTOMATED 609 10^3/uL (150-450)
[2020-01-14 10:32] LABS: BLOOD UREA NITROGEN 22 MG/DL (7-18); CALCIUM LEVEL 9.2 MG/DL (8.8-10.2); CARBON DIOXIDE LEVEL 26 MEQ/L (21-32); CHLORIDE LEVEL 105 MEQ/L (98-107); CREATININE FOR GFR 1.06 MG/DL (0.70-1.30); GLOMERULAR FILTRATION RATE > 60.0 (>42); GLUCOSE, FASTING 112 MG/DL (70-100); POTASSIUM SERUM 5.1 MEQ/L (3.5-5.1); SODIUM LEVEL 140 MEQ/L (136-145)
== END ==
LOC: M SFHCPLAZ 08:21
PROVIDERS: ATTEND Family Medicine
DX: D64.9 Anemia, unspecified (principal); I10 Essential (primary) hypertension
CPT/HCPCS: 80048; 85027; 99496; G0463

== ENCOUNTER → 2020-01-21 | Outpatient (CLI) | payer MEDICARE ==
--- NOTE | 2020-01-21 09:01 | REPPI ---
CHEST X-RAY: TWO VIEWS. HISTORY: Malignant neoplasm of the upper lobe. Comparison study January 11, 2020. FINDINGS: Post thoracotomy partial pneumonectomy changes are noted on the right. The previously noted right anterior intrathoracic air-fluid level has decreased in size consistent with improving hydropneumothorax. No new infiltrate is seen. Left lung remains essentially clear. There is slight blunting of the right pleural angles unchanged. IMPRESSION: Status post partial pneumonectomy thoracotomy changes on the right. Improving air fluid level right upper chest. Electronically Signed by Shaquille Luevano MD 01/21/2020 10:04 A
== END ==
LOC: M PLAIMG 08:01
PROVIDERS: ATTEND Thoracic Surgery (Cardiothoracic Vascular Surgery)
DX: C34.11 Malignant neoplasm of upper lobe, right bronchus or lung (principal)

== ENCOUNTER → 2020-02-11 | Outpatient (CLI) | payer MEDICARE ==
--- NOTE | 2020-02-11 08:39 | REPPI ---
Clinical: History of adenocarcinoma. Technique: PA and lateral. Comparison: January 23, 2020. Findings: Right-sided postsurgical and pleuroparenchymal changes are similar to prior examination. Prominent right hilum is again noted. Visualized cardiac silhouette is normal. Left hemithorax is clear. No obvious acute consolidation. No pneumothorax. No definite effusion. Skeletal structures intact. Impression: Relatively stable right-sided postsurgical and pleuroparenchymal changes. Electronically Signed by Matthew Whiteside MD 02/11/2020 08:30 A
== END ==
LOC: M PLAIMG 08:12
PROVIDERS: ATTEND Family Medicine
DX: C34.91 Malignant neoplasm of unspecified part of right bronchus or lung (principal)

== ENCOUNTER → 2020-05-30 | Outpatient (CLI) | payer MEDICARE ==
[~2020-05-30] MED LIST changes: +ALBU83IN INH; +ASPI-546 PO; -ASPI1TAB15 PO; -ASPI81TA85 PO; +ASPI81TA86 PO; +ECOT81TA5 PO
[2020-07-12 11:13] LABS: BLOOD UREA NITROGEN 16 MG/DL (7-18); CALCIUM LEVEL 8.9 MG/DL (8.8-10.2); CARBON DIOXIDE LEVEL 30 MEQ/L (21-32); CHLORIDE LEVEL 109 MEQ/L (98-107); CREATININE FOR GFR 1.11 MG/DL (0.70-1.30); GLOMERULAR FILTRATION RATE > 60.0 (>42); GLUCOSE, FASTING 108 MG/DL (70-100); POTASSIUM SERUM 5.8 MEQ/L (3.5-5.1); SODIUM LEVEL 140 MEQ/L (136-145)
== END ==
LOC: M LAB 12:26
PROVIDERS: ATTEND Family Medicine
DX: I10 Essential (primary) hypertension (principal)

== ENCOUNTER → 2020-06-01 | Outpatient (REF) | payer MEDICARE ==
[2020-07-15 22:15] LABS: BLOOD UREA NITROGEN 22 MG/DL (7-18); CALCIUM LEVEL 9.3 MG/DL (8.8-10.2); CARBON DIOXIDE LEVEL 29 MEQ/L (21-32); CHLORIDE LEVEL 107 MEQ/L (98-107); CREATININE FOR GFR 1.21 MG/DL (0.70-1.30); GLOMERULAR FILTRATION RATE > 60.0 (>42); GLUCOSE, FASTING 108 MG/DL (70-100); POTASSIUM SERUM 4.9 MEQ/L (3.5-5.1); SODIUM LEVEL 140 MEQ/L (136-145)
== END ==
LOC: M SFHCPLAZ 14:39
PROVIDERS: ATTEND Family Medicine
DX: I10 Essential (primary) hypertension (principal)

== ENCOUNTER → 2020-06-07 | Emergency (ER) | payer MEDICARE ==
[~2020-06-07] MED LIST changes: +dexameTHASONE 20MG/5ML VIAL (J1100 PER 1MG) As Ordered ONE
== END | disposition home or self-care (01) ==
LOC: M ED 14:55
DX: J44.1 Chronic obstructive pulmonary disease with (acute) exacerbation (principal); C34.90 Malignant neoplasm of unspecified part of unspecified bronchus or lung; I25.10 Atherosclerotic heart disease of native coronary artery without angina pectoris; E78.5 Hyperlipidemia, unspecified; Z86.73 Personal history of transient ischemic attack (TIA), and cerebral infarction without residual deficits; Z90.2 Acquired absence of lung [part of]; Z79.82 Long term (current) use of aspirin; Z79.899 Other long term (current) drug therapy
CPT/HCPCS: 71046; 96374; 99284; J1100

== ENCOUNTER → 2020-06-13 | Outpatient (REF) | payer MEDICARE ==
[~2020-06-13] MED LIST changes: -dexameTHASONE 20MG/5ML VIAL (J1100 PER 1MG) As Ordered ONE
== END ==
LOC: M LAB REF 09:49
PROVIDERS: ATTEND Urology
DX: C67.9 Malignant neoplasm of bladder, unspecified (principal)
CPT/HCPCS: 52000; 88108; G0463

== ENCOUNTER → 2020-06-22 | Outpatient (CLI) | payer MEDICARE ==
--- NOTE | 2020-07-20 07:14 | REP ---
NONCONTRAST CHEST CT CLINICAL: Follow-up malignancy. TECHNIQUE: Axial noncontrast images from the thoracic inlet to the upper abdomen with coronal and sagittal reformations. COMPARISON: 12/21/2019. FINDINGS: There is evidence for prior right upper lobe resection with post surgical pleural parenchymal changes and volume loss involving the right hemithorax. No obvious residual right-sided mass lesion. No consolidation. No effusion. No obvious metastatic disease. The left hemithorax is well aerated and clear. Incidental calcified granuloma at the left base remains unchanged. The tracheobronchial tree is patent. No obvious adenopathy. Atherosclerotic to the thoracic aorta and coronary arteries noted without aortic aneurysm or cardiomegaly. No pericardial effusion. Limited upper abdomen demonstrates normal bilateral adrenal glands. Surrounding musculoskeletal structures demonstrate right rib changes related to prior surgery and no evidence for acute osseous abnormality. IMPRESSION: Findings compatible with post surgical changes involving the right hemithorax. No acute mediastinal or pleural parenchymal process appreciated. No evidence for recurrence or metastatic disease. MTDD
== END ==
LOC: M RAD 12:49
PROVIDERS: ATTEND Internal Medicine Pulmonary Disease
DX: C34.11 Malignant neoplasm of upper lobe, right bronchus or lung (principal)

== ENCOUNTER → 2020-08-04 | Outpatient (REF) | payer MEDICARE ==
[2020-08-04 10:47] LABS: BLOOD UREA NITROGEN 20 MG/DL (7-18); CALCIUM LEVEL 9.2 MG/DL (8.8-10.2); CARBON DIOXIDE LEVEL 32 MEQ/L (21-32); CHLORIDE LEVEL 106 MEQ/L (98-107); CREATININE FOR GFR 1.18 MG/DL (0.70-1.30); GLOMERULAR FILTRATION RATE > 60.0 (>42); GLUCOSE, FASTING 115 MG/DL (70-100); POTASSIUM SERUM 4.2 MEQ/L (3.5-5.1); SODIUM LEVEL 140 MEQ/L (136-145)
== END ==
LOC: M SFHCPLAZ 08:26
PROVIDERS: ATTEND Family Medicine
DX: I10 Essential (primary) hypertension (principal); Z23 Encounter for immunization
CPT/HCPCS: 36415; 80048; 90682; G0008; G0463

== ENCOUNTER → 2020-08-11 | Outpatient (CLI) | payer MEDICARE ==
[2020-08-11 14:07] LABS: HEMATOCRIT 39.4 % (42.0-52.0); MEAN CORPUSCULAR HEMOGLOBIN 29.8 pg (27.0-33.0); MEAN CORPUSCULAR VOLUME 90.4 fl (80.0-96.0); PLATELET COUNT, AUTOMATED 339 10^3/uL (150-450); RED BLOOD COUNT 4.36 10^6/uL (4.30-6.10); WHITE BLOOD COUNT 9.7 10^3/uL (4.0-10.0)
[2020-08-11 14:32] LABS: PERCENT SATURATION 15.5 % (19.7-50.0)
== END ==
LOC: M PLALAB 10:09
PROVIDERS: ATTEND Physician Assistant Medical
DX: D50.9 Iron deficiency anemia, unspecified (principal)

== ENCOUNTER → 2020-08-17 | Outpatient (CLI) | payer MEDICARE | END | disposition home or self-care (01) | LOC: M LABSMTC 10:21 | PROVIDERS: ATTEND Anesthesiology | DX: Z01.818 Encounter for other preprocedural examination (principal) | CPT/HCPCS: C9803; U0003 ==

== ENCOUNTER 2020-08-22 09:31 | Day surgery (SDC) | payer MEDICARE ==
[~2020-08-22] VITALS: Ht 175.3 cm; Wt 94.8 kg
[~2020-08-22 09:31] MED LIST changes: +NS 1,000 ML IV ONE
[2020-08-22] MEDS ORDERED: propofoL 200 MG/20 ML VIAL As Ordered ONE (10:54)
[2020-08-22] MEDS ORDERED: LIDOCAINE 2% 100MG/5ML SDV (FOR ANES.) As Ordered ONE (10:54)
[2020-08-22] MEDS ORDERED: ePHEDrine SULFATE 25 MG/5 ML(5MG/ML) SYRINGE As Ordered ONE (11:50)
--- NOTE | 2020-08-22 11:58 | ROOR ---
Patient Name: Russel Fairbanks Procedure Date: 08/22/2020 11:36 AM Date of : 1945 Age: 75 Room: [facility] Gender: Male Note Status: Finalized Procedure: Colonoscopy Indications: Positive fecal immunochemical test Providers: Benjamin HURLEY MD Referring MD: Dayanna Ralph MD Requesting Provider: Medicines: Monitored Anesthesia Care Complications: No immediate complications. Procedure: Pre-Anesthesia Assessment: - The heart rate, respiratory rate, oxygen saturations, blood pressure, adequacy of pulmonary ventilation, and response to care were monitored throughout the procedure. The Colonoscope was introduced through the anus and advanced to the terminal ileum, with identification of the appendiceal orifice and IC valve. The colonoscopy was performed without difficulty. The patient tolerated the procedure well. The quality of the bowel preparation was good. Findings: The perianal and digital rectal examinations were normal. A diminutive polyp was found in the ascending colon. The polyp was sessile. The polyp was removed with a cold snare. Resection and retrieval were complete. Multiple medium-mouthed diverticula were found in the sigmoid colon. Internal hemorrhoids were found during retroflexion. The hemorrhoids were medium-sized. The exam was otherwise without abnormality on direct and retroflexion views. Impression: - One diminutive polyp in the ascending colon, removed with a cold snare. Resected and retrieved. - Diverticulosis in the sigmoid colon. - Internal hemorrhoids. - The examination was otherwise normal on direct and retroflexion views. Recommendation: - Repeat colonoscopy in 5 years for surveillance. Benjamin Hurley MD Benjamin HURLEY MD 08/22/2020 11:58:21 AM Electronically signed by Benjamin HURLEY MD Number of Addenda: 0 Note Initiated On: 08/22/2020 11:36 AM Estimated Blood Loss: Estimated blood loss: none.
[2020-08-22 12:28] VITALS: BP 132/75
== END 2020-08-22 12:28 | disposition home or self-care (01) ==
LOC: M OPP 09:31
PROVIDERS: ATTEND Internal Medicine Gastroenterology
DX: D12.2 Benign neoplasm of ascending colon (principal); K57.30 Diverticulosis of large intestine without perforation or abscess without bleeding; K64.8 Other hemorrhoids; R19.5 Other fecal abnormalities; I25.2 Old myocardial infarction; J44.9 Chronic obstructive pulmonary disease, unspecified; Z79.899 Other long term (current) drug therapy; Z87.891 Personal history of nicotine dependence; Z85.118 Personal history of other malignant neoplasm of bronchus and lung; Z85.51 Personal history of malignant neoplasm of bladder; Z86.73 Personal history of transient ischemic attack (TIA), and cerebral infarction without residual deficits; Z92.21 Personal history of antineoplastic chemotherapy

== ENCOUNTER → 2021-03-14 | Outpatient (CLI) | payer MEDICARE ==
[~2021-03-14] MED LIST changes: -LISI-538 PO; +LISI20TA33 PO; -NS 1,000 ML IV ONE
--- NOTE | 2021-03-14 08:40 | REPVR ---
PROCEDURE INFORMATION: Exam: CT Chest Without Contrast; Diagnostic Exam date and time: 03/14/2021 7:49 AM Age: 76 years old Clinical indication: Abnormal findings; Lung mass or nodule; Not specified; Additional info: Malignant neoplasm RT upper lobe, compare to prior TECHNIQUE: Imaging protocol: Diagnostic computed tomography of the chest without contrast. 3D rendering (Not supervised by radiologist): MIP and/or 3D reconstructed images were created by the technologist. Radiation optimization: All CT scans at this facility use at least one of these dose optimization techniques: automated exposure control; mA and/or kV adjustment per patient size (includes targeted exams where dose is matched to clinical indication); or iterative reconstruction. COMPARISON: CT Chest without contrast 06/22/2020 1:05 PM FINDINGS: Lungs: Status post right upper and middle lobe resection with right lung volume loss and [id number] mediastinal shift. Extensive right perihilar scarring and architectural distortion. Interval development a 3-4 mm pulmonary nodule in the right lower lobe on image number [id number]. Centrilobular and paraseptal emphysema. Stable subpleural pulmonary nodules along medial aspect the right lower lobe. Stable postoperative changes in the right lateral chest wall atelectasis or scarring lingula and right base. Calcified granuloma at the left base. Pleural spaces: Unremarkable. No pneumothorax. No pleural effusion. Heart: Atherosclerotic disease of coronary arteries. Calcified aortic valve leaflets. Aorta: Atherosclerotic disease the thoracic aorta. Lymph nodes: Calcified left hilar and subcarinal lymph nodes. Liver: Mild hepatomegaly. Spleen: Calcified granulomata in the spleen. Bones/joints: Multilevel degenerative disease of the thoracic spine. Soft tissues: Unremarkable. IMPRESSION: Interval development a 3-4 mm pulmonary nodule in the right lower lobe on image number 67. No other significant interval changes. Fleischner Society follow up recommendations for incidental nodules are not indicated. Follow up per the patient's medical condition. Electronically signed by: Shane Phoenix On 03/14/2021 08:39:51 AM
== END ==
LOC: M RAD 07:39
PROVIDERS: ATTEND Internal Medicine Pulmonary Disease
DX: C34.11 Malignant neoplasm of upper lobe, right bronchus or lung (principal)

== ENCOUNTER → 2021-06-19 | Outpatient (REF) | payer MEDICARE | LOC: M SMT 19:20 | PROVIDERS: ATTEND Urology | DX: C67.9 Malignant neoplasm of bladder, unspecified (principal) | CPT/HCPCS: 52000; 88108; G0463 ==

== ENCOUNTER → 2021-07-26 | Outpatient (CLI) | payer MEDICARE ==
[~2021-07-26] MED LIST changes: +ISOVUE-370 76% 100ML VIAL ONE
--- NOTE | 2021-07-26 11:18 | REP ---
INDICATION: MALIG NEOPLASM RT LUNG, NICOTINE DEPENDENCE COMPARISON: Multiple the latest 03/14/2021 TECHNIQUE: Standard helical technique after the intravenous administration of 100 cc Isovue 370 FINDINGS: There is no evidence of mediastinal or hilar adenopathy. Benign mediastinal and hilar calcifications are noted status quo. There are no pleural or pericardial effusions. The imaged osseous structures are essentially unchanged. Seen in the pancreatic body there is a 1.2 cm sized peripherally enhancing central low-density lesion which when compared to upper abdominal images obtained during CT angio chest from an outside institution dated 07/21/2019 has not changed significantly. The examinations are technically different. It may have gotten slightly larger. It was not present on CT examination of the abdomen of 05/06/2018. Evaluation of the lung arrieta shows right hemithoracic postoperative changes due to previous right upper and middle lobectomy. Once again, there is compensatory hyperexpansion of the right lower lobe status quo. No new abnormal nodules, masses, or opacities have developed. IMPRESSION: 1. Stable CT examination of the chest as described above. 2. Pancreatic body lesion as described above. It is seen in a limited fashion on this chest CT. Pre and post gadolinium enhanced pancreatic MRI is recommended for further evaluation. I cannot rule out the possibility of a pre cancerous lesion such as a papillary mucinous neoplasm or colloid carcinoma the pancreas. <Electronically signed by Joseph Rock > 07/26/21 [id number]
== END ==
LOC: M PLAIMG 09:21
PROVIDERS: ATTEND Internal Medicine Pulmonary Disease
DX: C34.11 Malignant neoplasm of upper lobe, right bronchus or lung (principal); Z87.891 Personal history of nicotine dependence
CPT/HCPCS: 71260; Q9967

== ENCOUNTER → 2021-08-30 | Outpatient (CLI) | payer MEDICARE ==
[~2021-08-30] MED LIST changes: -ISOVUE-370 76% 100ML VIAL ONE
[2021-08-30 11:29] LABS: BLOOD UREA NITROGEN 19 MG/DL (7-18)
[2021-08-30 11:30] LABS: CREATININE FOR GFR 1.09 MG/DL (0.70-1.30); GLOMERULAR FILTRATION RATE > 60.0 (>42)
== END ==
LOC: M PLALAB 07:57
PROVIDERS: ATTEND Family Medicine
DX: I10 Essential (primary) hypertension (principal)

== ENCOUNTER → 2021-09-13 | Outpatient (CLI) | payer MEDICARE ==
[~2021-09-13] MED LIST changes: +PROHANCE 279.3MG/ML 15ML VIAL As Ordered ONE; +PROHANCE 279.3MG/ML 5ML VIAL As Ordered ONE
--- NOTE | 2021-09-13 10:47 | REP ---
INDICATION: PANCREATIC LESION. COMPARISON: There are no prior pancreatic MRI is for comparison. Previous CT scan of the chest of 07/26/2021 showed a peripherally enhancing central low-density pancreatic lesion seen in the imaged upper abdomen. TECHNIQUE: Pre and post contrast 3T MRI of the pancreas was performed utilizing various sequences. Gadolinium utilized: 19 cc ProHance FINDINGS: In the pancreatic body there is a 1 x 0.9 x 0.8 cm sized cystic lesion which is of predominant T2 hyper signal and seen to be septated. The T1 signal is low intermediate and there is evidence of peripheral enhancement and an enhancing septation. There is no evidence of intrapancreatic ductal dilatation. There is no evidence of peripancreatic adenopathy. There is no para-aortic adenopathy. There is no evidence of free fluid. The imaged portion of the liver shows no evidence of an enhancing hepatic lesion. The spleen, adrenal glands, and kidneys are within normal limits. There is a single nonenlarged lymph node in the gastrohepatic ligament. There is no evidence of dilatation of the common bile duct. Cortical marrow signal seen throughout the exam is within normal limits. IMPRESSION: There is a suspicious pancreatic lesion, as described above, which is highly concerning for malignancy. <Electronically signed by Joseph Rock > 09/13/21 [id number]
== END ==
LOC: M RAD 09:06
PROVIDERS: ATTEND Family Medicine
DX: K86.9 Disease of pancreas, unspecified (principal); R93.89 Abnormal findings on diagnostic imaging of other specified body structures
CPT/HCPCS: A9576; C8902

== ENCOUNTER → 2021-09-21 | Outpatient (REF) | payer MEDICARE ==
[~2021-09-21] MED LIST changes: -PROHANCE 279.3MG/ML 15ML VIAL As Ordered ONE; -PROHANCE 279.3MG/ML 5ML VIAL As Ordered ONE
[2021-09-21 16:55] LABS: HEMATOCRIT 42.5 % (42.0-52.0); HEMOGLOBIN 14.2 g/dl (13.5-17.5); MEAN CORPUSCULAR HEMOGLOBIN 30.1 pg (27.0-33.0); MEAN CORPUSCULAR HGB CONC 33.4 g/dl (32.0-36.5); PLATELET COUNT, AUTOMATED 290 10^3/uL (150-450); RED BLOOD COUNT 4.72 10^6/uL (4.30-6.10); WHITE BLOOD COUNT 14.1 10^3/uL (4.0-10.0)
[2021-09-21 17:19] LABS: ALBUMIN 4.1 GM/DL (3.2-5.2); ALT/SGPT 32 U/L (12-78); BILIRUBIN,TOTAL 1.2 MG/DL (0.2-1.0); BLOOD UREA NITROGEN 25 MG/DL (7-18); CALCIUM LEVEL 9.7 MG/DL (8.8-10.2); CARBON DIOXIDE LEVEL 28 MEQ/L (21-32); CHLORIDE LEVEL 107 MEQ/L (98-107); CREATININE FOR GFR 1.14 MG/DL (0.70-1.30); GLOMERULAR FILTRATION RATE > 60.0 (>42); GLUCOSE, FASTING 88 MG/DL (70-100); POTASSIUM SERUM 4.7 MEQ/L (3.5-5.1); SODIUM LEVEL 141 MEQ/L (136-145); TOTAL PROTEIN 7.9 GM/DL (6.4-8.2)
[2021-09-21 17:52] LABS: INR 0.97; PARTIAL THROMBOPLASTIN TIME 27.4 SECONDS (25.9-37.0); PROTHROMBIN TIME 13.3 SECONDS (12.7-14.5)
[2021-09-21 17:56] LABS: CA19-9 TUMOR MARKER,CARBOHYDRA 6.4 U/ML (<35.0)
== END ==
LOC: M SFHCADAM 11:58
PROVIDERS: ATTEND Family Medicine
DX: K86.2 Cyst of pancreas (principal); Z79.51 Long term (current) use of inhaled steroids; Z79.899 Other long term (current) drug therapy; Z79.82 Long term (current) use of aspirin
CPT/HCPCS: 80053; 85027; 85610; 85730; 86301; G0463

== ENCOUNTER → 2022-02-28 | Outpatient (CLI) | payer MEDICARE | LOC: M PLAIMG 13:00 | PROVIDERS: ATTEND Physician Assistant | DX: J44.9 Chronic obstructive pulmonary disease, unspecified (principal); F17.200 Nicotine dependence, unspecified, uncomplicated ==

== ENCOUNTER → 2022-03-20 | Outpatient (CLI) | payer MEDICARE ==
[2022-03-20 11:48] LABS: ALBUMIN 3.7 GM/DL (3.2-5.2); ALT/SGPT 27 U/L (12-78); BLOOD UREA NITROGEN 15 MG/DL (7-18); CALCIUM LEVEL 9.5 MG/DL (8.8-10.2); CARBON DIOXIDE LEVEL 28 MEQ/L (21-32); CHLORIDE LEVEL 109 MEQ/L (98-107); CHOLESTEROL LEVEL 139 MG/DL (<200); CHOLESTEROL RISK RATIO 3.309 (<5); CREATININE FOR GFR 1.09 MG/DL (0.70-1.30); GLOMERULAR FILTRATION RATE > 60.0 (>42); GLUCOSE, FASTING 118 MG/DL (70-100); HDL CHOLESTEROL 42 MG/DL (>40); LDL CHOLESTEROL 72 MG/DL (<100); NON-HDL-C 97 MG/DL; POTASSIUM SERUM 3.9 MEQ/L (3.5-5.1); SODIUM LEVEL 143 MEQ/L (136-145); TOTAL PROTEIN 7.1 GM/DL (6.4-8.2); TRIGLYCERIDES LEVEL 125 MG/DL (<150)
== END ==
LOC: M PLALAB 07:29
PROVIDERS: ATTEND Physician Assistant
DX: I10 Essential (primary) hypertension (principal)

== ENCOUNTER → 2022-05-09 | Outpatient (CLI) | payer MEDICARE ==
[~2022-05-09] MED LIST changes: +ALBU2.5V10 INH; -ALBU83IN INH; +AMLO1TAB24 PO; +HYDR-3490 PO; +SYMB80INH INH
== END ==
LOC: M LABSMTC 09:04
PROVIDERS: ATTEND Anesthesiology
DX: Z11.52 Encounter for screening for COVID-19 (principal)

== ENCOUNTER 2022-05-14 10:52 | Day surgery (SDC) | payer MEDICARE ==
[~2022-05-14] VITALS: Ht 180.3 cm; Wt 97.9 kg
[~2022-05-14 10:52] MED LIST changes: +NS 1,000 ML IV ONE
[2022-05-14] MEDS ORDERED: fentaNYL 100 MCG/2 ML INJECTION As Ordered ONE (12:52)
[2022-05-14] MEDS ORDERED: propofoL 200 MG/20 ML VIAL As Ordered ONE (12:59)
[2022-05-14] MEDS ORDERED: LIDOCAINE 2% 100MG/5ML SDV (FOR ANES.) As Ordered ONE (12:59)
[2022-05-14] MEDS ORDERED: GLYCOPYRROLATE INJ 0.2 MG/ML 2 ML VIAL As Ordered ONE (13:00)
[2022-05-14 13:33] VITALS: BP 162/89
== END 2022-05-14 13:35 | disposition home or self-care (01) ==
LOC: M OPP 10:52
PROVIDERS: ATTEND Internal Medicine Gastroenterology
DX: K29.40 Chronic atrophic gastritis without bleeding (principal); K31.A0 Gastric intestinal metaplasia, unspecified; K44.9 Diaphragmatic hernia without obstruction or gangrene; Z86.19 Personal history of other infectious and parasitic diseases; I10 Essential (primary) hypertension; E78.00 Pure hypercholesterolemia, unspecified; I25.2 Old myocardial infarction; Z86.73 Personal history of transient ischemic attack (TIA), and cerebral infarction without residual deficits; Z79.02 Long term (current) use of antithrombotics/antiplatelets; Z79.51 Long term (current) use of inhaled steroids; Z79.52 Long term (current) use of systemic steroids; Z79.82 Long term (current) use of aspirin; Z79.899 Other long term (current) drug therapy; Z87.891 Personal history of nicotine dependence; Z85.828 Personal history of other malignant neoplasm of skin; Z85.118 Personal history of other malignant neoplasm of bronchus and lung; Z85.51 Personal history of malignant neoplasm of bladder; Z92.21 Personal history of antineoplastic chemotherapy
CPT/HCPCS: 43239; 88305; 88342; J3010

== ENCOUNTER → 2022-06-18 | Outpatient (REF) | payer MEDICARE ==
[~2022-06-18] MED LIST changes: -NS 1,000 ML IV ONE
== END ==
LOC: M SMT 16:53
PROVIDERS: ATTEND Urology
DX: C67.9 Malignant neoplasm of bladder, unspecified (principal)

== ENCOUNTER 2022-07-10 09:51 | Emergency (ER) | payer MEDICARE ==
[~2022-07-10] VITALS: Ht 180.3 cm; Wt 97.5 kg
[2022-07-10 11:27] LABS: BASO # 0.1 10^3/uL (0.0-0.2); BASO % 0.5 % (0.0-1.0); EOS # 0.2 10^3/uL (0.0-0.5); EOS % 1.6 % (0.0-3.0); HEMATOCRIT 38.9 % (42.0-52.0); HEMOGLOBIN 13.1 g/dl (13.5-17.5); LYMPH # 3.3 10^3/uL (1.5-5.0); LYMPH % 22.1 % (24.0-44.0); MEAN CORPUSCULAR HEMOGLOBIN 29.9 pg (27.0-33.0); MEAN CORPUSCULAR HGB CONC 33.7 g/dl (32.0-36.5); MEAN CORPUSCULAR VOLUME 88.8 fl (80.0-96.0); MONO # 0.9 10^3/uL (0.0-0.8); MONO % 5.8 % (2.0-8.0); NEUTROPHILS # 10.3 10^3/uL (1.5-8.5); NEUTROPHILS % 69.6 % (36.0-66.0); PLATELET COUNT, AUTOMATED 300 10^3/uL (150-450); RED BLOOD COUNT 4.38 10^6/uL (4.30-6.10); WHITE BLOOD COUNT 14.8 10^3/uL (4.0-10.0)
[2022-07-10 12:05] LABS: ALBUMIN 3.8 GM/DL (3.2-5.2); ALT/SGPT 25 U/L (12-78); BILIRUBIN,DIRECT 0.4 MG/DL (0.0-0.2); BILIRUBIN,TOTAL 1.5 MG/DL (0.2-1.0); BLOOD UREA NITROGEN 17 MG/DL (7-18); CALCIUM LEVEL 9.2 MG/DL (8.8-10.2); CARBON DIOXIDE LEVEL 27 MEQ/L (21-32); CHLORIDE LEVEL 107 MEQ/L (98-107); CREATININE FOR GFR 1.22 MG/DL (0.70-1.30); GLOMERULAR FILTRATION RATE > 60.0 (>42); GLUCOSE, FASTING 116 MG/DL (70-100); LIPASE 154 U/L (73-393); POTASSIUM SERUM 3.7 MEQ/L (3.5-5.1); SODIUM LEVEL 140 MEQ/L (136-145); TOTAL PROTEIN 7.7 GM/DL (6.4-8.2)
[2022-07-10 12:09] VITALS: BP 160/78
[2022-07-10] MEDS ORDERED: ISOVUE-370 76% 100ML VIAL As Ordered ONE (12:33)
[2022-07-10] MEDS ORDERED: FURO20TA2 (12:39)
== END 2022-07-10 14:37 | disposition left against medical advice (07) ==
LOC: M ED 09:51
DX: N13.2 Hydronephrosis with renal and ureteral calculous obstruction (principal); R10.32 Left lower quadrant pain; Z53.20 Procedure and treatment not carried out because of patient's decision for unspecified reasons; E27.9 Disorder of adrenal gland, unspecified; I25.2 Old myocardial infarction; Z86.73 Personal history of transient ischemic attack (TIA), and cerebral infarction without residual deficits; J44.9 Chronic obstructive pulmonary disease, unspecified; F41.9 Anxiety disorder, unspecified; E78.5 Hyperlipidemia, unspecified; Z79.82 Long term (current) use of aspirin; Z79.899 Other long term (current) drug therapy
CPT/HCPCS: 36415; 74177; 80048; 80076; 83690; 85025; 99283; Q9967

== ENCOUNTER → 2022-09-19 | Outpatient (CLI) | payer MEDICARE ==
[~2022-09-19] MED LIST changes: +FURO20TA2 PO; +TREL1AER INH
== END ==
LOC: M LABSMTC 09:47
PROVIDERS: ATTEND Anesthesiology
DX: Z01.812 Encounter for preprocedural laboratory examination (principal); Z11.52 Encounter for screening for COVID-19

== ENCOUNTER → 2022-09-20 | Outpatient (CLI) | payer MEDICARE ==
[2022-09-20 13:59] LABS: BASO # 0.1 10^3/uL (0.0-0.2); EOS # 0.7 10^3/uL (0.0-0.5); EOS % 5.3 % (0.0-3.0); HEMATOCRIT 38.9 % (42.0-52.0); LYMPH # 3.2 10^3/uL (1.5-5.0); LYMPH % 25.5 % (24.0-44.0); MEAN CORPUSCULAR HEMOGLOBIN 29.7 pg (27.0-33.0); MEAN CORPUSCULAR HGB CONC 33.4 g/dl (32.0-36.5); MONO # 0.9 10^3/uL (0.0-0.8); NEUTROPHILS # 7.6 10^3/uL (1.5-8.5); NEUTROPHILS % 60.9 % (36.0-66.0); PLATELET COUNT, AUTOMATED 324 10^3/uL (150-450); RED BLOOD COUNT 4.37 10^6/uL (4.30-6.10); WHITE BLOOD COUNT 12.5 10^3/uL (4.0-10.0)
[2022-09-20 14:05] LABS: BILIRUBIN,TOTAL 1.3 MG/DL (0.3-1.2); CALCIUM LEVEL 9.4 MG/DL (8.3-10.6); CREATININE FOR GFR 1.44 MG/DL (0.70-1.30); GLOMERULAR FILTRATION RATE 50.9 (>42); TOTAL PROTEIN 7.4 G/DL (5.7-8.2)
[2022-09-20 14:08] LABS: INR 0.97; PROTHROMBIN TIME 13.1 SECONDS (12.5-14.5)
[2022-09-20 16:21] LABS: APPEARANCE, URINE MANUAL CLEAR (CLEAR); COLOR, URINE MANUAL LT YELLOW (YELLOW)
[2022-09-20 16:22] LABS: BILIRUBIN, URINE MANUAL NEGATIVE (NEGATIVE); BLOOD URINE MANUAL NEGATIVE (NEGATIVE); GLUCOSE, URINE (UA) MANUAL NEGATIVE (NEGATIVE); KETONE, URINE MANUAL NEGATIVE (NEGATIVE); NITRITE, URINE MANUAL NEGATIVE (NEGATIVE); PH,URINE MAN 5.5 UNITS (5.0 - 7.0); PROTEIN, URINE MANUAL NEGATIVE (NEGATIVE); SPECIFIC GRAVITY,URINE MANUAL 1.015 (1.002-1.035); UROBILINOGEN, URINE MANUAL NORMAL (NORMAL)
[2022-09-20 16:23] LABS: LEUKOCYTE ESTERASE, URINE MAN TRACE (NEGATIVE)
[2022-09-20 20:43] LABS: BACTERIA, URINE NONE SEEN; RBC, URINE 0-1 /hpf (0-3); SQUAMOUS EPITHELIAL CELL URINE NONE SEEN /hpf (SMALL AMT)
[2022-09-20 20:44] LABS: HYALINE CAST, URINE NONE SEEN /lpf (0-1)
== END ==
LOC: M PLALAB 10:09
PROVIDERS: ATTEND Physician Assistant
DX: Z01.818 Encounter for other preprocedural examination (principal)

== ENCOUNTER → 2022-10-01 | Outpatient (CLI) | payer MEDICARE | LOC: M LABSMTC 10:47 | PROVIDERS: ATTEND Anesthesiology | DX: Z01.812 Encounter for preprocedural laboratory examination (principal); Z11.52 Encounter for screening for COVID-19 ==

== ENCOUNTER 2022-10-03 06:03 | Day surgery (SDC) | payer MEDICARE ==
[~2022-10-03] VITALS: Ht 180.3 cm; Wt 95.3 kg
[~2022-10-03 06:03] MED LIST changes: +ceFAZolin SOD 2 GM in IV 1 EA IV ONE
[2022-10-03] MEDS ORDERED: LR 1,000 ML IV SCH ×2 (06:25→09:05)
[2022-10-03] MEDS ORDERED: ISOVUE-300 61% 50ML VIAL As Ordered ONE (07:11)
[2022-10-03] MEDS ORDERED: propofoL 200 MG/20 ML VIAL As Ordered ONE (07:19)
[2022-10-03] MEDS ORDERED: LIDOCAINE 2% 100MG/5ML SDV (FOR ANES.) As Ordered ONE (07:19)
[2022-10-03] MEDS ORDERED: fentaNYL 100 MCG/2 ML INJECTION As Ordered ONE (07:19)
[2022-10-03] MEDS ORDERED: MIDAZOLAM INJ 2MG/2ML VIAL (J2250 PER 1MG) As Ordered ONE (07:20)
[2022-10-03] MEDS ORDERED: KETOROLAC 60MG 2ML VIAL As Ordered ONE (07:59)
[2022-10-03] MEDS ORDERED: ONDANSETRON 4MG 2ML VIAL As Ordered ONE (07:59)
[2022-10-03] MEDS ORDERED: fentaNYL 100 MCG/2 ML INJECTION IV PRN (09:05)
[2022-10-03] MEDS ORDERED: HYDROMORPHONE HCL 0.5 MG/ 0.5 ML SYRINGE (J1170 PER 1) IV PRN (09:05)
[2022-10-03] MEDS ORDERED: ONDANSETRON 4MG 2ML VIAL IV PRN (09:05)
[2022-10-03] MEDS ORDERED: oxyCODONE 5MG TAB PO PRN (09:05)
[2022-10-03 09:50] VITALS: BP 161/75
== END 2022-10-03 10:21 | disposition home or self-care (01) ==
LOC: M SDC 06:03
PROVIDERS: ATTEND Urology
DX: N13.1 Hydronephrosis with ureteral stricture, not elsewhere classified (principal); Z85.51 Personal history of malignant neoplasm of bladder; I10 Essential (primary) hypertension; I25.10 Atherosclerotic heart disease of native coronary artery without angina pectoris; Z86.73 Personal history of transient ischemic attack (TIA), and cerebral infarction without residual deficits; I25.2 Old myocardial infarction; E78.5 Hyperlipidemia, unspecified; Z98.61 Coronary angioplasty status; R73.03 Prediabetes; Z87.891 Personal history of nicotine dependence; J44.9 Chronic obstructive pulmonary disease, unspecified; Z79.899 Other long term (current) drug therapy; Z79.82 Long term (current) use of aspirin; Z79.51 Long term (current) use of inhaled steroids; Z90.2 Acquired absence of lung [part of]
CPT/HCPCS: 52332; 52341; 74420; 88108; C1769; C2617; J0690; J1100; J1885; J2250; J2405; J3010; Q9967

== ENCOUNTER → 2022-10-16 | Outpatient (CLI) | payer MEDICARE ==
[~2022-10-16] MED LIST changes: +AMLO1TAB25; -ceFAZolin SOD 2 GM in IV 1 EA IV ONE
== END ==
LOC: M LABSMTC 08:51
PROVIDERS: ATTEND Anesthesiology
DX: Z01.818 Encounter for other preprocedural examination (principal); Z11.52 Encounter for screening for COVID-19

== ENCOUNTER → 2022-10-16 | Outpatient (CLI) | payer MEDICARE ==
[2022-10-16 10:32] LABS: HEMATOCRIT 38.5 % (42.0-52.0); HEMOGLOBIN 12.7 g/dl (13.5-17.5); MEAN CORPUSCULAR HEMOGLOBIN 29.5 pg (27.0-33.0); MEAN CORPUSCULAR VOLUME 89.3 fl (80.0-96.0); PLATELET COUNT, AUTOMATED 355 10^3/uL (150-450); RED BLOOD COUNT 4.31 10^6/uL (4.30-6.10); WHITE BLOOD COUNT 14.7 10^3/uL (4.0-10.0)
[2022-10-16 11:04] LABS: INR 0.93; PROTHROMBIN TIME 12.7 SECONDS (12.5-14.5)
[2022-10-16 11:05] LABS: PARTIAL THROMBOPLASTIN TIME 25.3 SECONDS (24.8-34.2)
[2022-10-16 13:45] LABS: CALCIUM LEVEL 9.2 MG/DL (8.3-10.6); CREATININE FOR GFR 1.35 MG/DL (0.70-1.30); GLOMERULAR FILTRATION RATE 54.8 (>42); POTASSIUM SERUM 4.5 MMOL/L (3.5-5.1)
== END ==
LOC: M LAB 08:58
PROVIDERS: ATTEND Nurse Practitioner Women's Health
DX: C67.2 Malignant neoplasm of lateral wall of bladder (principal); Z79.899 Other long term (current) drug therapy

== ENCOUNTER → 2022-10-30 | Outpatient (CLI) | payer MEDICARE ==
[~2022-10-30] MED LIST changes: -AMLO1TAB25; +AMLO1TAB25 PO; +CIPR-249 PO; +COLA100C5 PO
== END ==
LOC: M PLALAB 10:44
PROVIDERS: ATTEND Urology
DX: C61 Malignant neoplasm of prostate (principal)

== ENCOUNTER → 2022-10-30 | Outpatient (CLI) | payer MEDICARE ==
[~2022-10-30] MED LIST changes: +CYSTO-CONRAY II 17.2% 250ML VIAL As Ordered ONE
== END ==
LOC: M RADPRO 12:11
PROVIDERS: ATTEND Urology
DX: R32 Unspecified urinary incontinence (principal)
CPT/HCPCS: 36415; 51610; 74430; 84153; Q9958

== ENCOUNTER → 2022-11-27 | Outpatient (CLI) | payer MEDICARE ==
[~2022-11-27] MED LIST changes: -CYSTO-CONRAY II 17.2% 250ML VIAL As Ordered ONE
== END ==
LOC: M PLALAB 08:50
PROVIDERS: ATTEND Urology
DX: C61 Malignant neoplasm of prostate (principal)

== ENCOUNTER → 2023-01-02 | Outpatient (CLI) | payer MEDICARE | LOC: M RAD 10:13 | PROVIDERS: ATTEND Urology | DX: C61 Malignant neoplasm of prostate (principal) | CPT/HCPCS: 78306; A9503 ==

== ENCOUNTER → 2023-01-22 | Outpatient (CLI) | payer MEDICARE ==
[2023-01-22 15:50] LABS: BLOOD UREA NITROGEN 20 MG/DL (9-23); CALCIUM LEVEL 9.2 MG/DL (8.3-10.6); CARBON DIOXIDE LEVEL 24 MMOL/L (20-31); CHLORIDE LEVEL 107 MMOL/L (98-107); CREATININE FOR GFR 1.16 MG/DL (0.70-1.30); GLOMERULAR FILTRATION RATE > 60.0 (>42); GLUCOSE, FASTING 110 MG/DL (74-106); POTASSIUM SERUM 4.1 MMOL/L (3.5-5.1); SODIUM LEVEL 139 MMOL/L (136-145)
== END ==
LOC: M PLALAB 09:16
PROVIDERS: ATTEND Urology
DX: C61 Malignant neoplasm of prostate (principal)

== ENCOUNTER → 2023-01-25 | Outpatient (CLI) | payer MEDICARE ==
[~2023-01-25] MED LIST changes: +ISOVUE-370 76% 100ML VIAL As Ordered ONE
== END ==
LOC: M RAD 12:15
PROVIDERS: ATTEND Urology
DX: C61 Malignant neoplasm of prostate (principal); C80.1 Malignant (primary) neoplasm, unspecified
CPT/HCPCS: 74178; Q9967

== ENCOUNTER → 2023-02-26 | Outpatient (CLI) | payer MEDICARE ==
[~2023-02-26] MED LIST changes: -ISOVUE-370 76% 100ML VIAL As Ordered ONE
[2023-02-26 15:56] LABS: HEMOGLOBIN A1c 6.1 % (4.0-6.0)
[2023-02-26 16:06] LABS: ALBUMIN 3.6 G/DL (3.2-5.2); ALKALINE PHOSPHATASE 113 U/L (46-116); ALT/SGPT 31 U/L (7.0-40); AST/SGOT < 8 U/L (<34); BILIRUBIN,TOTAL 0.8 MG/DL (0.3-1.2); BLOOD UREA NITROGEN 20 MG/DL (9-23); CALCIUM LEVEL 8.9 MG/DL (8.3-10.6); CARBON DIOXIDE LEVEL 25 MMOL/L (20-31); CHLORIDE LEVEL 108 MMOL/L (98-107); CREATININE FOR GFR 1.11 MG/DL (0.70-1.30); GLOMERULAR FILTRATION RATE > 60.0 (>42); GLUCOSE, FASTING 96 MG/DL (74-106); POTASSIUM SERUM 3.8 MMOL/L (3.5-5.1); SODIUM LEVEL 141 MMOL/L (136-145); TOTAL PROTEIN 6.7 G/DL (5.7-8.2)
[2023-02-26 16:07] LABS: THYROID STIMULATING HORMONE 2.393 uIU/ML (0.55-4.78)
== END ==
LOC: M PLALAB 14:32
PROVIDERS: ATTEND Physician Assistant
DX: R42 Dizziness and giddiness (principal); Z79.899 Other long term (current) drug therapy

== ENCOUNTER 2023-03-09 03:13 | Emergency (ER) | payer MEDICARE ==
[~2023-03-09] VITALS: Ht 180.3 cm; Wt 90.0 kg
[2023-03-09 03:50] LABS: BASO # 0.1 10^3/uL (0.0-0.2); BASO % 0.7 % (0.0-1.0); EOS # 0.5 10^3/uL (0.0-0.5); EOS % 4.5 % (0.0-3.0); HEMATOCRIT 33.1 % (42.0-52.0); HEMOGLOBIN 10.9 g/dl (13.5-17.5); LYMPH # 3.6 10^3/uL (1.5-5.0); LYMPH % 33.7 % (24.0-44.0); MEAN CORPUSCULAR HEMOGLOBIN 29.1 pg (27.0-33.0); MEAN CORPUSCULAR HGB CONC 32.9 g/dl (32.0-36.5); MEAN CORPUSCULAR VOLUME 88.3 fl (80.0-96.0); MONO # 0.9 10^3/uL (0.0-0.8); MONO % 8.3 % (2.0-8.0); NEUTROPHILS # 5.6 10^3/uL (1.5-8.5); NEUTROPHILS % 52.5 % (36.0-66.0); PLATELET COUNT, AUTOMATED 270 10^3/uL (150-450); RED BLOOD COUNT 3.75 10^6/uL (4.30-6.10); WHITE BLOOD COUNT 10.7 10^3/uL (4.0-10.0)
[2023-03-09 04:13] LABS: LIPASE 49 U/L (12-53)
[2023-03-09 04:15] LABS: ALBUMIN 3.5 G/DL (3.2-5.2); ALKALINE PHOSPHATASE 124 U/L (46-116); ALT/SGPT 88 U/L (7.0-40); AST/SGOT 115 U/L (<34); BILIRUBIN,DIRECT 0.2 MG/DL (<0.4); BILIRUBIN,TOTAL 0.6 MG/DL (0.3-1.2); BLOOD UREA NITROGEN 28 MG/DL (9-23); CARBON DIOXIDE LEVEL 25 MMOL/L (20-31); CHLORIDE LEVEL 113 MMOL/L (98-107); CPK CREATINE PHOSPHOKINASE 91 U/L (46-171); CREATININE FOR GFR 1.19 MG/DL (0.70-1.30); GLOMERULAR FILTRATION RATE > 60.0 (>42); GLUCOSE, FASTING 119 MG/DL (74-106); MB/CK RELATIVE INDEX 1.09 (< OR =4); POTASSIUM SERUM 3.8 MMOL/L (3.5-5.1); SODIUM LEVEL 143 MMOL/L (136-145); TOTAL PROTEIN 6.8 G/DL (5.7-8.2)
[2023-03-09 04:19] LABS: INR 0.96
[2023-03-09 04:20] LABS: PARTIAL THROMBOPLASTIN TIME 24.8 SECONDS (24.8-34.2)
[2023-03-09] MEDS ORDERED: ISOVUE-370 76% 100ML VIAL As Ordered ONE (05:49)
[2023-03-09] MEDS ORDERED: NS 1,000 ML IV SCH (09:25)
[2023-03-09] MEDS ORDERED: AUGM500T34 PO (15:06)
[2023-03-09] MEDS ORDERED: PERC5TAB12 PO (15:06)
[2023-03-09 15:18] VITALS: BP 159/74
== END 2023-03-09 15:22 | disposition home or self-care (01) ==
LOC: M ED 03:13 → EDBD 03:13 → M ED 15:22
DX: K80.51 Calculus of bile duct without cholangitis or cholecystitis with obstruction (principal); I25.10 Atherosclerotic heart disease of native coronary artery without angina pectoris; I25.2 Old myocardial infarction; I10 Essential (primary) hypertension; E78.5 Hyperlipidemia, unspecified; J44.9 Chronic obstructive pulmonary disease, unspecified; Z85.46 Personal history of malignant neoplasm of prostate; Z85.51 Personal history of malignant neoplasm of bladder; Z79.899 Other long term (current) drug therapy; Z79.82 Long term (current) use of aspirin
CPT/HCPCS: 36415; 74177; 74181; 76705; 80048; 80076; 82550; 82553; 83605; 83690; 84484; 85025; 85610; 85730; 93005; 93041; 99285; Q9967

== ENCOUNTER → 2023-04-24 | Outpatient (CLI) | payer MEDICARE ==
[~2023-04-24] MED LIST changes: +AUGM500T34 PO; +PERC5TAB12 PO
== END ==
LOC: M PAIN 09:00
PROVIDERS: ATTEND Anesthesiology
DX: R07.89 Other chest pain (principal); D36.10 Benign neoplasm of peripheral nerves and autonomic nervous system, unspecified; C61 Malignant neoplasm of prostate; I10 Essential (primary) hypertension; I25.2 Old myocardial infarction; R73.03 Prediabetes; J44.9 Chronic obstructive pulmonary disease, unspecified; Z87.891 Personal history of nicotine dependence; Z79.51 Long term (current) use of inhaled steroids; Z79.82 Long term (current) use of aspirin; Z79.899 Other long term (current) drug therapy

== ENCOUNTER → 2023-04-29 | Outpatient (CLI) | payer MEDICARE | LOC: M RAD 11:20 | PROVIDERS: ATTEND Physician Assistant | DX: K80.20 Calculus of gallbladder without cholecystitis without obstruction (principal) | CPT/HCPCS: 78227; A9537 ==

== ENCOUNTER → 2023-05-01 | Outpatient (CLI) | payer MEDICARE | LOC: M RAD 07:58 | PROVIDERS: ATTEND Internal Medicine Critical Care Medicine | DX: C34.11 Malignant neoplasm of upper lobe, right bronchus or lung (principal) ==

== ENCOUNTER → 2023-06-12 | Outpatient (CLI) | payer MEDICARE ==
[2023-06-12 13:58] LABS: BASO # 0.1 10^3/uL (0.0-0.2); BASO % 0.8 % (0.0-1.0); EOS # 0.4 10^3/uL (0.0-0.5); EOS % 3.5 % (0.0-3.0); HEMATOCRIT 35.3 % (42.0-52.0); HEMOGLOBIN 11.8 g/dl (13.5-17.5); LYMPH # 3.6 10^3/uL (1.5-5.0); LYMPH % 36.6 % (24.0-44.0); MEAN CORPUSCULAR HEMOGLOBIN 29.7 pg (27.0-33.0); MEAN CORPUSCULAR HGB CONC 33.4 g/dl (32.0-36.5); MEAN CORPUSCULAR VOLUME 88.9 fl (80.0-96.0); MONO # 0.6 10^3/uL (0.0-0.8); MONO % 6.2 % (2.0-8.0); NEUTROPHILS # 5.2 10^3/uL (1.5-8.5); NEUTROPHILS % 52.6 % (36.0-66.0); PLATELET COUNT, AUTOMATED 276 10^3/uL (150-450); RED BLOOD COUNT 3.97 10^6/uL (4.30-6.10); WHITE BLOOD COUNT 9.9 10^3/uL (4.0-10.0)
[2023-06-12 14:15] LABS: HEMOGLOBIN A1c 6.2 % (4.0-6.0)
[2023-06-12 14:25] LABS: ALKALINE PHOSPHATASE 113 U/L (46-116); ALT/SGPT 22 U/L (7.0-40); AST/SGOT 10 U/L (<34); BILIRUBIN,TOTAL 1.5 MG/DL (0.3-1.2); BLOOD UREA NITROGEN 24 MG/DL (9-23); CALCIUM LEVEL 9.8 MG/DL (8.3-10.6); CARBON DIOXIDE LEVEL 27 MMOL/L (20-31); CHLORIDE LEVEL 107 MMOL/L (98-107); CHOLESTEROL LEVEL 184 MG/DL (<200); CHOLESTEROL RISK RATIO 3.84 (<5); CREATININE FOR GFR 1.19 MG/DL (0.70-1.30); GLOMERULAR FILTRATION RATE > 60.0 (>42); GLUCOSE, FASTING 107 MG/DL (74-106); HDL CHOLESTEROL 47.9 MG/DL (>40); LDL CHOLESTEROL 113.3 MG/DL (<100); NON-HDL-C 136.1 MG/DL; POTASSIUM SERUM 4.6 MMOL/L (3.5-5.1); SODIUM LEVEL 141 MMOL/L (136-145); TOTAL PROTEIN 7.4 G/DL (5.7-8.2); TRIGLYCERIDES LEVEL 114 MG/DL (<150)
== END ==
LOC: M PLALAB 11:09
PROVIDERS: ATTEND Physician Assistant
DX: R73.03 Prediabetes (principal); I10 Essential (primary) hypertension; E78.2 Mixed hyperlipidemia; M79.89 Other specified soft tissue disorders

== ENCOUNTER → 2023-06-12 | Outpatient (CLI) | payer MEDICARE | LOC: M PLALAB 11:07 | PROVIDERS: ATTEND Urology | DX: C61 Malignant neoplasm of prostate (principal) ==

== ENCOUNTER → 2023-06-18 | Outpatient (CLI) | payer MEDICARE | LOC: M PLALAB 07:36 | PROVIDERS: ATTEND Urology | DX: C61 Malignant neoplasm of prostate (principal) ==

== ENCOUNTER → 2023-06-25 | Outpatient (REF) | payer MEDICARE | LOC: M SMT 13:11 | PROVIDERS: ATTEND Urology | DX: C67.2 Malignant neoplasm of lateral wall of bladder (principal); C61 Malignant neoplasm of prostate; C80.1 Malignant (primary) neoplasm, unspecified; Z79.82 Long term (current) use of aspirin; Z79.51 Long term (current) use of inhaled steroids; F17.210 Nicotine dependence, cigarettes, uncomplicated | CPT/HCPCS: 52000; 88108; 96402; J9217 ==

== ENCOUNTER → 2023-09-23 | Outpatient (CLI) | payer MEDICARE ==
[~2023-09-23] MED LIST changes: +PROHANCE 279.3MG/ML 15ML VIAL ONE; +PROHANCE 279.3MG/ML 5ML VIAL ONE
== END ==
LOC: M PLAIMG 10:49
PROVIDERS: ATTEND Physician Assistant Medical
DX: K52.9 Noninfective gastroenteritis and colitis, unspecified (principal)
CPT/HCPCS: 74183; A9576

== ENCOUNTER 2023-10-04 10:53 | Day surgery (SDC) | payer MEDICARE ==
[~2023-10-04] VITALS: Ht 180.3 cm; Wt 95.2 kg
[~2023-10-04 10:53] MED LIST changes: +FLUT1BLS8; +GABA-1171 PO; -PROHANCE 279.3MG/ML 15ML VIAL ONE; -PROHANCE 279.3MG/ML 5ML VIAL ONE; +UNRESOLVED CLARIFICATION ENTRY XX SCH
[2023-10-04] MEDS ORDERED: fentaNYL 100 MCG/2 ML INJECTION As Ordered ONE (11:30)
[2023-10-04] MEDS ORDERED: propofoL 200 MG/20 ML VIAL As Ordered ONE (12:26)
[2023-10-04 12:43] VITALS: TEMP 96.2
[2023-10-04 12:55] VITALS: BP 161/76; O2SAT 97
== END 2023-10-04 13:05 | disposition home or self-care (01) ==
LOC: M OPP 10:53
PROVIDERS: ATTEND Internal Medicine Gastroenterology
DX: K29.40 Chronic atrophic gastritis without bleeding (principal); K31.89 Other diseases of stomach and duodenum; Z87.19 Personal history of other diseases of the digestive system; Z85.46 Personal history of malignant neoplasm of prostate; Z85.51 Personal history of malignant neoplasm of bladder; J44.9 Chronic obstructive pulmonary disease, unspecified; Z85.118 Personal history of other malignant neoplasm of bronchus and lung; I10 Essential (primary) hypertension; E78.00 Pure hypercholesterolemia, unspecified; F17.210 Nicotine dependence, cigarettes, uncomplicated; Z92.21 Personal history of antineoplastic chemotherapy; Z79.899 Other long term (current) drug therapy; Z79.82 Long term (current) use of aspirin; Z86.73 Personal history of transient ischemic attack (TIA), and cerebral infarction without residual deficits
CPT/HCPCS: 43239; 88305; J3010

== ENCOUNTER → 2023-12-16 | Outpatient (CLI) | payer MEDICARE ==
[~2023-12-16] MED LIST changes: -UNRESOLVED CLARIFICATION ENTRY XX SCH
== END ==
LOC: M PLALAB 08:19
PROVIDERS: ATTEND Urology
DX: C61 Malignant neoplasm of prostate (principal)

== ENCOUNTER → 2023-12-18 | Outpatient (CLI) | payer MEDICARE ==
[2023-12-18 11:27] LABS: BASO # 0.1 10^3/uL (0.0-0.2); BASO % 0.6 % (0.0-1.0); EOS # 0.3 10^3/uL (0.0-0.5); EOS % 2.7 % (0.0-3.0); HEMATOCRIT 36.1 % (42.0-52.0); HEMOGLOBIN 11.9 g/dl (13.5-17.5); LYMPH # 2.7 10^3/uL (1.5-5.0); LYMPH % 27.6 % (24.0-44.0); MEAN CORPUSCULAR HEMOGLOBIN 30.1 pg (27.0-33.0); MEAN CORPUSCULAR VOLUME 91.2 fl (80.0-96.0); MONO # 0.6 10^3/uL (0.0-0.8); MONO % 5.9 % (2.0-8.0); NEUTROPHILS # 6.2 10^3/uL (1.5-8.5); NEUTROPHILS % 62.9 % (36.0-66.0); PLATELET COUNT, AUTOMATED 257 10^3/uL (150-450); RED BLOOD COUNT 3.96 10^6/uL (4.30-6.10); WHITE BLOOD COUNT 9.9 10^3/uL (4.0-10.0)
[2023-12-18 12:01] LABS: ALBUMIN 3.9 G/DL (3.2-5.2); ALKALINE PHOSPHATASE 108 U/L (46-116); ALT/SGPT 37 U/L (7.0-40); AST/SGOT 17 U/L (<34); BILIRUBIN,TOTAL 0.8 MG/DL (0.3-1.2); BLOOD UREA NITROGEN 21 MG/DL (9-23); CALCIUM LEVEL 9.9 MG/DL (8.3-10.6); CARBON DIOXIDE LEVEL 28 MMOL/L (20-31); CHLORIDE LEVEL 109 MMOL/L (98-107); CREATININE FOR GFR 1.13 MG/DL (0.70-1.30); GLOMERULAR FILTRATION RATE > 60.0 (>42); GLUCOSE, FASTING 101 MG/DL (74-106); POTASSIUM SERUM 4.8 MMOL/L (3.5-5.1); SODIUM LEVEL 144 MMOL/L (136-145)
== END ==
LOC: M PLALAB 08:40
PROVIDERS: ATTEND Physician Assistant
DX: R73.03 Prediabetes (principal); I10 Essential (primary) hypertension

== ENCOUNTER → 2023-12-30 | Outpatient (REF) | payer MEDICARE | LOC: M SMT 13:06 | PROVIDERS: ATTEND Urology | DX: C80.1 Malignant (primary) neoplasm, unspecified (principal) ==

== ENCOUNTER → 2024-04-02 | Outpatient (CLI) | payer MEDICARE | LOC: M RAD 09:44 | PROVIDERS: ATTEND Physician Assistant | DX: Z87.891 Personal history of nicotine dependence (principal) ==

== ENCOUNTER → 2024-04-21 | Outpatient (REF) | payer MEDICARE | LOC: M SFHCPLAZ 13:38 | PROVIDERS: ATTEND Physician Assistant | DX: J47.1 Bronchiectasis with (acute) exacerbation (principal) ==

== ENCOUNTER → 2024-05-26 | Outpatient (CLI) | payer MEDICARE | LOC: M RAD 07:28 | PROVIDERS: ATTEND Physician Assistant | DX: R10.11 Right upper quadrant pain (principal) | CPT/HCPCS: 78227; A9537 ==

== ENCOUNTER 2024-09-21 11:15 | Emergency (ER) | payer MEDICARE ==
[~2024-09-21] VITALS: Ht 180.3 cm; Wt 90.0 kg
[2024-09-21] MEDS ORDERED: PANT20TA6 PO (11:42)
[2024-09-21] MEDS ORDERED: LISI20TA33 PO (11:42)
[2024-09-21 11:56] LABS: VENOUS BASE EXCESS -1.7 (-2.0-2.0); VENOUS O2 SATURATION 58.8 % (60.0-80.0); VENOUS PARTIAL PRESSURE CO2 38.7 mmHg (38.0-50.0); VENOUS PARTIAL PRESSURE O2 30.8 mmHg (30.0-50.0); VENOUS PH 7.392 UNITS (7.330-7.430); VENOUS STANDARD HCO3 22.3 MMOL/L; VENOUS TOTAL CO2 24.2 MMOL/L (24.0-28.0)
[2024-09-21 12:06] LABS: BASO # 0.1 10^3/uL (0.0-0.2); BASO % 0.7 % (0.0-1.0); EOS # 0.1 10^3/uL (0.0-0.5); EOS % 0.9 % (0.0-3.0); HEMATOCRIT 30.2 % (42.0-52.0); LYMPH # 2.3 10^3/uL (1.5-5.0); LYMPH % 23.4 % (24.0-44.0); MEAN CORPUSCULAR HEMOGLOBIN 29.5 pg (27.0-33.0); MEAN CORPUSCULAR HGB CONC 33.1 g/dl (32.0-36.5); MEAN CORPUSCULAR VOLUME 89.1 fl (80.0-96.0); MONO # 0.6 10^3/uL (0.0-0.8); MONO % 5.7 % (2.0-8.0); NEUTROPHILS # 6.8 10^3/uL (1.5-8.5); PLATELET COUNT, AUTOMATED 273 10^3/uL (150-450); RED BLOOD COUNT 3.39 10^6/uL (4.30-6.10); WHITE BLOOD COUNT 9.9 10^3/uL (4.0-10.0)
[2024-09-21 12:13] LABS: INR 1.1; PROTHROMBIN TIME 14.5 SECONDS (12.5-14.5)
[2024-09-21] MEDS: methylPREDNISolone 125MG 2ML VIAL IV ONE (12:53)
[2024-09-21] MEDS: ALBUTEROL SULFATE 2.5MG/0.5ML INH NEB SOLN NEB ONE (12:55)
[2024-09-21] MEDS: IPRATROPIUM 0.5MG/ALBUTEROL 2.5MG INH SOL UD 3ML (DUONEB) NEB ONE (12:55)
[2024-09-21 13:18] LABS: ALBUMIN 3.4 G/DL (3.2-5.2); BILIRUBIN,DIRECT 0.3 MG/DL (<0.4); BILIRUBIN,TOTAL 0.8 MG/DL (0.3-1.2); CALCIUM LEVEL 9.6 MG/DL (8.3-10.6); CREATININE FOR GFR 1.7 MG/DL (0.70-1.30); GLOMERULAR FILTRATION RATE 41.8 (>42); POTASSIUM SERUM 4.4 MMOL/L (3.5-5.1); TOTAL PROTEIN 6.4 G/DL (5.7-8.2)
[2024-09-21] MEDS: NS 500 ML IV ONE (15:19)
[2024-09-21] MEDS ORDERED: MAALOX 30 ML SUSP *UDC PO PRN (15:40)
[2024-09-21] MEDS ORDERED: IPRATROPIUM 0.5MG/ALBUTEROL 2.5MG INH SOL UD 3ML (DUONEB) NEB PRN (15:40)
[2024-09-21] MEDS ORDERED: ACETAMINOPHEN 325 MG TAB PO PRN (15:40)
[2024-09-21] MEDS ORDERED: HEPARIN SOD (PORCINE) 5000UNITS/ML 1ML VIAL/SYRINGE SC SCH (15:40)
[2024-09-21] MEDS ORDERED: MOM 30ML SUSPENSION UDC PO PRN (15:40)
[2024-09-21 15:56] LABS: CK-MB VALUE MASS 4.8 NG/ML (<3.6)
[2024-09-21 15:58] LABS: MB/CK RELATIVE INDEX 4.13 (< OR =4)
[2024-09-21] MEDS: NS 1,000 ML IV SCH (16:02)
[2024-09-21] MEDS ORDERED: FLUT1BLS8 INH (16:31)
[2024-09-21] MEDS ORDERED: HOME MED LIST COMPLETE! XX SCH (16:40)
[2024-09-21] MEDS: ASPIRIN 81MG CHEW TABLET PO ONE (16:58)
[2024-09-21] MEDS: HEPARIN DRIP 25,000 UNITS in IV 1 EA IV SCH (16:59)
[2024-09-21] MEDS: DOXYCYCLINE HYCLATE 100MG TABLET PO ONE (17:00)
[2024-09-21] MEDS: HEPARIN SOD (PORCINE) 5000UNITS/ML 1ML VIAL/SYRINGE IV ONE (17:00)
[2024-09-21 17:11] LABS: CK-MB VALUE MASS 7.8 NG/ML (<3.6)
[2024-09-21 17:16] LABS: MB/CK RELATIVE INDEX 5.13 (< OR =4)
[2024-09-21 17:45] VITALS: BP 103/55
[2024-09-21 17:51] LABS: HEMOGLOBIN A1c 6.3 % (4.0-6.0)
[2024-09-21 17:53] VITALS: TEMP 97.1; O2SAT 95
[2024-09-21] MEDS ORDERED: IPRATROPIUM 0.5MG/ALBUTEROL 2.5MG INH SOL UD 3ML (DUONEB) NEB SCH (20:00)
[2024-09-21] MEDS ORDERED: DOCUSATE SODIUM 100MG CAPSULE PO SCH (21:00)
== END 2024-09-21 18:08 | disposition short-term general hospital (02) ==
LOC: M ED 11:15 → EDBD 11:15 → CANBEDREQ 16:37 → M ED 18:08
DX: J44.1 Chronic obstructive pulmonary disease with (acute) exacerbation (principal); I21.4 Non-ST elevation (NSTEMI) myocardial infarction; N17.9 Acute kidney failure, unspecified; R53.1 Weakness; I25.2 Old myocardial infarction; I10 Essential (primary) hypertension; E78.5 Hyperlipidemia, unspecified; F41.9 Anxiety disorder, unspecified; F10.10 Alcohol abuse, uncomplicated; Z85.118 Personal history of other malignant neoplasm of bronchus and lung; Z85.46 Personal history of malignant neoplasm of prostate; Z79.1 Long term (current) use of non-steroidal anti-inflammatories (NSAID); Z79.899 Other long term (current) drug therapy
CPT/HCPCS: 71045; 80048; 80076; 82550; 82553; 82803; 83036; 83880; 84145; 84484; 85025; 85610; 85730; 87486; 87581; 87633; 87798; 93005; 93041; 94640; 94760; 96361; 96365; 96375; 96376; 99285; J2919

== ENCOUNTER → 2024-10-26 | Outpatient (CLI) | payer MEDICARE ==
[~2024-10-26] MED LIST changes: +FLUT1BLS8 INH; +PANT20TA6 PO
[2024-10-26 20:16] LABS: PROSTATIC SPECIFIC AG MONITOR 228.88 NG/ML (< 4.00)
== END ==
LOC: M PLALAB 14:32
PROVIDERS: ATTEND Urology
DX: C61 Malignant neoplasm of prostate (principal)